=== PATIENT | female | born 1940 | race Caucasian/White ===

== ENCOUNTER → 2016-05-31 | Outpatient (CLI) | payer OTHER, MEDICARE ==
[~2016-05-31] MED LIST: FENO134C PO; FENO54TA PO; METO100T6 PO; METO50TA7 PO; MOEX15TA PO; PRAV40TA2 PO; PRAV80TA2 PO; TRM50T PO
--- NOTE | 2016-05-31 13:18 | Diagnostic Imaging Report ---
Bilateral screening mammogram. The current study was also evaluated with a Computer Aided Detection (CAD) system. INDICATION: Screening. No current complaints stated on the questionnaire. COMPARISON: 05/29/15. FINDINGS: The breasts are composed of scattered fibroglandular densities. There is stable tiny lymph node in the axillary tail of the left breast. Scattered benign-appearing calcifications are seen. Allowing for technique and positional differences, no suspicious change is seen. IMPRESSION: No significant change. ACR BI-RADS Category 2: Benign findings. Result letter will be mailed to the patient. Note: At least 10% of breast cancer is not imaged by mammography. Dictated by: Dictated on workstation # [id number]
== END ==
LOC: RAD 07:14
PROVIDERS: ATTEND Internal Medicine
DX: Z12.31 Encounter for screening mammogram for malignant neoplasm of breast (principal)
CPT/HCPCS: 77067

== ENCOUNTER → 2017-07-26 | Outpatient (CLI) | payer BC, MEDICARE ==
--- NOTE | 2017-07-26 13:35 | Diagnostic Imaging Report ---
INDICATION: Screening. TECHNIQUE: Screening digital mammography was performed bilaterally with a Computer Aided Detection (CAD) system. 3-D tomosynthesis was also performed and reviewed. COMPARISON: 05/31/2016 back through 04/05/2011. FINDINGS: There are scattered fibrotic densities bilaterally. There are a few unchanged nodular densities in the lateral aspect of the left breast. There are a few benign type calcifications. There is no new dominant mass, spiculated lesion, or suspicious calcification identified. IMPRESSION: Benign findings. ACR BI-RADS Category 2: Benign findings. Result letter will be mailed to the patient. Note: At least 10% of breast cancer is not imaged by mammography. Dictated by: Dictated on workstation # [id number]
== END ==
LOC: RAD 07:33
PROVIDERS: ATTEND Internal Medicine
DX: Z12.31 Encounter for screening mammogram for malignant neoplasm of breast (principal)
CPT/HCPCS: 77067

== ENCOUNTER → 2017-10-25 | Outpatient (CLI) | payer BC, MEDICARE | LOC: CARD 09:27 | PROVIDERS: ATTEND Internal Medicine | DX: R01.1 Cardiac murmur, unspecified (principal) | CPT/HCPCS: 93306 ==

== ENCOUNTER → 2018-08-15 | Outpatient (CLI) | payer BC, MEDICARE ==
--- NOTE | 2018-08-15 12:58 | Diagnostic Imaging Report ---
INDICATION: Routine screening. COMPARISON: 07/26/2017 and 05/31/2016. TECHNIQUE: 2D and 3D bilateral screening mammography was performed with CAD. FINDINGS: Scattered fibroglandular densities are identified bilaterally. Scattered benign-appearing calcifications are noted bilaterally. No dominant mass or malignant appearing microcalcifications are seen. The axillae are unremarkable. IMPRESSION: No mammographic features suspicious for malignancy are identified. ACR BI-RADS Category 2: Benign findings. Result letter will be mailed to the patient. Note: At least 10% of breast cancer is not imaged by mammography. Dictated by: Dictated on workstation # [id number]
== END ==
LOC: RAD 08:06
PROVIDERS: ATTEND Internal Medicine
DX: Z12.31 Encounter for screening mammogram for malignant neoplasm of breast (principal)
CPT/HCPCS: 77067

== ENCOUNTER 2019-02-14 21:53 | Emergency (ER) | payer BC, MEDICARE ==
[~2019-02-14] VITALS: Ht 167 cm; Wt 81.8 kg
[2019-02-14] MEDS ORDERED: NS IV 500 ML 500 ML IV ONE (22:13)
--- NOTE | 2019-02-14 22:22 | ED Neurological Problem ---
General Chief Complaint: Neurological Problems Stated Complaint: SYNCOPE Source: patient Exam Limitations: no limitations History of Present Illness Date Seen by Provider: Feb 14, 2019 Time Seen by Provider: 22:08 Initial Comments Here with report of near syncopal episode at home tonight. Patient actually was involved in the [place] [employer] [place] [place] and was standing on the [employer] sustaining for approximately an hour and 10 minutes. She apparently did okay with that but after getting home she became quite weak and nearly passed out. EMS was called and they brought her to the emergency department. Family reports that over the last 3 weeks that she's had some progressive and increasing memory problems and was not quite acting right. This was more noticeable today and worse tonight. She is a little better now. She did suffer a fall on January 13 and has followed with her doctor as well as Dr. Ronquillo evaluated shoulder and hip apparently on the right side. Is apparently is okay. She was instructed to get more exercise. 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 Patient states that she had to practices today prior to the concert and that was probably too much. Denies nausea or vomiting. Timing/Duration: episodic, waxing and waning, other (better now) Severity: moderate Associated Symptoms: confusion, fatigue; No nausea/vomiting, No slurred speech, No tingling in legs/feet; weakness Allergies and Home Medications Allergies Uncoded Allergies: ERTHROMYCIN (Allergy, Unknown, 05/08/12) Home Medications Cephalexin 500 Mg Tablet, 500 MG PO BID Prescribed by: JAMAL TEJADA on 02/14/19 4732 Fenofibrate 54 Mg Tablet, 54 MG PO HS, (Reported) Fenofibrate,Micronized 134 Mg Capsule, 134 MG PO DAILY, (Reported) Metoprolol Succinate 100 Mg Tab.er.24h, 50 MG PO DAILY, (Reported) Moexipril HCl 15 Mg Tablet, 15 MG PO DAILY, (Reported) Pravastatin Sodium 40 Mg Tablet, 40 MG PO DAILY, (Reported) Patient Home Medication List Home Medication List Reviewed: Yes Review of Systems Review of Systems Constitutional: see HPI; No chills, No fever Eyes: No Symptoms Reported Ears, Nose, Mouth, Throat: no symptoms reported Respiratory: no symptoms reported Cardiovascular: No chest pain; syncope (near syncope) Gastrointestinal: No abdominal pain, No nausea, No vomiting Genitourinary: no symptoms reported Musculoskeletal: No back pain; muscle weakness Skin: no symptoms reported Psychiatric/Neurological: See HPI All Other Systems Reviewed Negative Unless Noted: Yes Past Rnadfal-Ndudpn-Tiqfzk Hx Past Med/Social Hx: Reviewed Nursing Past Med/Soc Hx Patient Social History Alcohol Use: Denies Use Recreational Drug Use: No Smoking Status: Never a Smoker Recent Foreign Travel: No Contact w/Someone Who Travel: No Immunizations Up To Date Date of Pneumonia Vaccine: Mar 21, 2014 Seasonal Allergies Seasonal Allergies: Yes Past Medical History Surgeries: Yes (colonoscopy) Respiratory: Yes Pneumonia Cardiac: Yes High Cholesterol, Hypertension, Valvular Heart Disease Neurological: No Genitourinary: No Gastrointestinal: Yes (polyps) Musculoskeletal: Yes Arthritis, Fractures Family Medical History Reviewed Nursing Family Hx No Pertinent Family Hx Physical Exam Vital Signs Vital Signs - First Documented 02/14/19 21:55 Temp 36.6 Pulse 76 Resp 20 B/P (MAP) 147/63 (91) Pulse Ox 98 O2 Delivery Room Air Capillary Refill : Height, Weight, BMI Height: 5'6.00" Weight: 196lbs. 0.0oz. 88.046106xs; 31.6 BMI Method:Stated General Appearance: WD/WN, no apparent distress HEENT: PERRL/EOMI, pharynx normal Neck: full range of motion, supple Respiratory: lungs clear, normal breath sounds Cardiovascular: regular rate, rhythm, systolic murmur Gastrointestinal: non tender, soft Back: normal inspection, no CVA tenderness, no vertebral tenderness Extremities: non-tender, normal inspection Neurologic/Psychiatric: alert, oriented x 3 Crainal Nerves: normal hearing, normal speech, PERRL Coordination/Gait: normal finger to nose Motor/Sensory: no motor deficit, no sensory deficit, no pronator drift Skin: normal color, warm/dry Stroke NIH Stroke Scale Assessment Select: Initial Level of Consciousness: 0=Alert (0), Level of Consciousness- Questions: 0=Answers both month/age (0), LOC Commands: 0=Performs both tasks (0), Gaze: Normal (0), Visual [place]: 0=No visual loss (0), Facial Movement (Facial Paresis): 0=Normal symmetrical mnt (0), Motor Function-Arms Right: 0=No drift (0), Motor Function-Arms Left: 0=No drift (0), Motor Function-Legs Right: 0=No drift (0), Motor Function-Legs Left: 0=No drift (0), Limb Ataxia: 0=Absent (0), Sensory: 0=Normal:no loss (0), Best Language: 0=No aphasia (0), Dysarthria: 0=Normal (0), Extinction & Inattention: 0=No abnormality (0), Total: 0 IV - TPa Received IV - TPa Procedure Performed?: No Progress/Results/Core Measures Results/Orders Lab Results Laboratory Tests Test 02/14/19 22:37 02/14/19 22:38 02/14/19 22:48 Range/Units Glucometer 149 H 70-110 MG/DL White Blood Count 11.0 4.3-11.0 10^3/uL Red Blood Count 4.34 L 4.35-5.85 10^6/uL Hemoglobin 12.0 11.5-16.0 G/DL Hematocrit 36 35-52 % Mean Corpuscular Volume 84 80-99 FL Mean Corpuscular Hemoglobin 28 25-34 PG Mean Corpuscular Hemoglobin Concent 33 32-36 G/DL Red Cell Distribution Width 14.4 10.0-14.5 % Platelet Count 216 130-400 10^3/uL Mean Platelet Volume 10.2 7.4-10.4 FL Neutrophils (%) (Auto) 72 42-75 % Lymphocytes (%) (Auto) 19 12-44 % Monocytes (%) (Auto) 8 0-12 % Eosinophils (%) (Auto) 1 0-10 % Basophils (%) (Auto) 0 0-10 % Neutrophils # (Auto) 7.9 H 1.8-7.8 X 10^3 Lymphocytes # (Auto) 2.1 1.0-4.0 X 10^3 Monocytes # (Auto) 0.9 0.0-1.0 X 10^3 Eosinophils # (Auto) 0.1 0.0-0.3 10^3/uL Basophils # (Auto) 0.0 0.0-0.1 10^3/uL Prothrombin Time 13.6 12.2-14.7 SEC INR Comment 1.0 0.8-1.4 Activated Partial Thromboplast Time 25 24-35 SEC D-Dimer 0.91 H 0.00-0.49 UG/ML Sodium Level 145 135-145 MMOL/L Potassium Level 3.6 3.6-5.0 MMOL/L Chloride Level 110 H 98-107 MMOL/L Carbon Dioxide Level 20 L 21-32 MMOL/L Anion Gap 15 H 5-14 MMOL/L Blood Urea Nitrogen 23 H 7-18 MG/DL Creatinine 1.42 H 0.60-1.30 MG/DL Estimat Glomerular Filtration Rate 36 BUN/Creatinine Ratio 16 Glucose Level 155 H 70-105 MG/DL Calcium Level 9.9 8.5-10.1 MG/DL Corrected Calcium 10.1 8.5-10.1 MG/DL Total Bilirubin 1.0 0.1-1.0 MG/DL Aspartate Amino Transf (AST/SGOT) 14 5-34 U/L Alanine Aminotransferase (ALT/SGPT) 9 0-55 U/L Alkaline Phosphatase 49 40-136 U/L Troponin I < 0.028 <0.028 NG/ML Total Protein 6.3 L 6.4-8.2 GM/DL Albumin 3.8 3.2-4.5 GM/DL Urine Color YELLOW Urine Clarity CLEAR Urine pH 5 5-9 Urine Specific Avant 1.025 H 1.016-1.022 Urine Protein 3+ H NEGATIVE Urine Glucose (UA) NEGATIVE NEGATIVE Urine Ketones NEGATIVE NEGATIVE Urine Nitrite NEGATIVE NEGATIVE Urine Bilirubin NEGATIVE NEGATIVE Urine Urobilinogen NORMAL NORMAL MG/DL Urine Leukocyte Esterase 3+ H NEGATIVE Urine RBC (Auto) 5+ H NEGATIVE Urine RBC 10-25 H /HPF Urine WBC 10-25 H /HPF Urine Crystals PRESENT H /LPF Urine Uric Acid Crystals FEW H /LPF Urine Bacteria MODERATE H /HPF Urine Casts PRESENT /LPF Urine Hyaline Casts 2-5 H /LPF Urine Mucus NEGATIVE /LPF Urine Culture Indicated YES My Orders Orders - JAMAL TEJADA MD Cbc With Automated Diff (02/14/19 22:13) Protime With Inr (02/14/19 22:13) Partial Thromboplastin Time (02/14/19 22:13) Comprehensive Metabolic Panel (02/14/19 22:13) Fibrin Degradation Products (02/14/19 22:13) Troponin I (02/14/19 22:13) Ua Culture If Indicated (02/14/19 22:13) Chest 1 View, Ap/Pa Only (02/14/19 22:13) Ekg Tracing (02/14/19 22:13) Accucheck Stat ONCE (02/14/19 22:13) Ed Iv/Invasive Line Start (02/14/19 22:13) Vital Signs Stroke Patient Q15M (02/14/19 22:13) Ct Head Wo-R/O Stroke (02/14/19 22:13) O2 (02/14/19 22:13) Intake & Output 06,14,22 (02/14/19 22:13) Monitor-Rhythm Ecg Trace Only (02/14/19:13) Dysphagia Screening Tool (02/14/19 22:13) Ns Iv 500 Ml (Sodium Chloride 0.9%) (02/14/19 22:13) Straight Cath For Spec.-Adult (02/14/19:13) Ceftriaxone For Iv Use (Rocephin For I (02/14/19 23:34) Water (Sterile) For Injection (Sterile W (02/14/19 23:34) Urine Culture (02/14/19 22:48) Medications Given in ED Current Medications Medications Dose Ordered Sig/[place] Route Start Time Stop Time Status Last Admin Dose Admin Ceftriaxone Sodium 1,000 mg STK-MED ONCE .ROUTE 02/14/19 23:34 02/14/19 23:36 DC 02/14/19 23:37 1,000 MG Sodium Chloride 500 ml @ 0 mls/hr Q0M ONCE IV 02/14/19 22:13 02/14/19 22:17 DC 02/14/19 22:25 999 MLS/HR Sterile Water 10 ml @ ud STK-MED ONCE .ROUTE 02/14/19 23:34 02/14/19 23:36 DC 02/14/19 23:37 200 MLS/HR Vital Signs/I&O 02/14/19 02/15/19 21:55 00:02 Temp 36.6 36.1 Pulse 76 75 Resp 20 17 B/P (MAP) 147/63 (91) 134/73 Pulse Ox 98 96 O2 Delivery Room Air Room Air 02/15/19 00:00 Intake Total 500 ml Balance 500 ml Progress Progress Note : Progress Note Seen and evaluated on arrival by EMS. He, labs, EKG and chest x-ray, CT head and UA ordered. Stroke scale done by me and was 0. No indication for TPA as patient is 0 on stroke scale. Symptoms have been increasing over the last several weeks would also contraindicate TPA treatment. She did fall. 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 Record shows that she has aortic stenosis. We will give normal saline 500 mL bolus and await labs for further decision. Patient does not really want to stay but is willing to listen to information. Family is in agreement. Family is concerned regarding her increasing memory loss. We will rediscuss when labs and radiological evaluation complete. 2345:50) urinary tract infection with 3+ leukocytes and 1025 whites with moderate bacteria on straight catheter UA. We will go ahead and give Rocephin 1 g IV. She is feeling better and is able to relate events well. She will have family staying with her and has good family support. Patient wants to go home. Discharged home with return precautions. Patient and family verbalize understanding instructions and agreement with plan. I will send a copy of the chart to Dr. Johnson. Initial ECG Impression Date: Feb 14, 2019 Initial ECG Impression Time: 22:15 Initial ECG Rate: 76 Initial ECG Rhythm: Normal Sinus Comment Sinus rhythm with left anterior fascicular block. LVH noted. No evidence of ST elevation GA. No previous available for comparison area and left axis deviation. Interpreted by me. Diagnostic Imaging Diagonstic Imaging: Xray Plain Films/CT/US/NM/MRI: chest Comments no acute findings Diagonstic Imaging: CT Plain Films/CT/US/NM/MRI: head Comments No acute findings Departure Impression Primary Impression: Urinary tract infection Qualified Codes: N30.00 - Acute cystitis without hematuria Additional Impressions: Dehydration Near syncope Disposition: HOME, SELF-CARE Condition: Improved Departure-Patient Inst. Decision time for Depature: 23:45 Referrals: CECILIA JOHNSON MD (PCP/Family) Primary Care Physician Patient Instructions: Dehydration, Adult (DC), Syncope (Fainting) (DC), Urinary Tract Infection, Adult (DC) Add. Discharge Instructions: All discharge instructions reviewed with patient and/or family. Voiced understanding. Take medications as directed. Follow-up with your DrHo in a few days for recheck. Return for worse pain, fever, vomiting, weakness, breathing problems or other concerns as needed. Drink plenty of fluids and continue your normal diet and watch your sugars. Scripts Cephalexin (Cephalexin) 500 Mg Tablet 500 MG PO BID for 5 Days, #10 TAB 0 Refills Prov: JAMAL TEJADA MD 02/14/19 Copy Copies To 1: CECILIA JOHNSON MD, TIMOTHY D MD Feb 14, 2019 22:22
[2019-02-14] MEDS ORDERED: WATER (STERILE) FOR INJECTION 10 ML ONE (23:34)
[2019-02-14] MEDS ORDERED: cefTRIAXone 1,000 MG IV (ROCEPHIN) VIAL ONE (23:34)
[2019-02-14] MEDS ORDERED: CEPH500T PO (23:48)
[2019-02-14 23:51] LABS: BASOPHILS % (AUTO) 0 % (0-10); EOSINOPHILS # (AUTO) 0.1 10^3/uL (0.0-0.3); EOSINOPHILS % (AUTO) 1 % (0-10); HEMATOCRIT 36 % (35-52); LYMPHOCYTES # (AUTO) 2.1 X 10^3 (1.0-4.0); LYMPHOCYTES % (AUTO) 19 % (12-44); MEAN CORPUSCULAR HEMOGLOBIN 28 PG (25-34); MEAN CORPUSCULAR HGB CONC 33 G/DL (32-36); MEAN CORPUSCULAR VOLUME 84 FL (80-99); MEAN PLATELET VOLUME 10.2 FL (7.4-10.4); MONOCYTES # (AUTO) 0.9 X 10^3 (0.0-1.0); MONOCYTES % (AUTO) 8 % (0-12); NEUTROPHILS # (AUTO) 7.9 X 10^3 (1.8-7.8); NEUTROPHILS % (AUTO) 72 % (42-75); PLATELET COUNT 216 10^3/uL (130-400); RED CELL DISTRIBUTION WIDTH 14.4 % (10.0-14.5)
[2019-02-14 23:52] LABS: CARBON DIOXIDE 20 MMOL/L (21-32); CHLORIDE 110 MMOL/L (98-107); FIBRIN DEGRADATION PRODUCTS 0.91 UG/ML (0.00-0.49); POTASSIUM 3.6 MMOL/L (3.6-5.0); PROTHROMBIN TIME PATIENT 13.6 SEC (12.2-14.7); SODIUM 145 MMOL/L (135-145)
[2019-02-14 23:53] LABS: ALANINE AMINOTRANSFERASE 9 U/L (0-55); ALBUMIN 3.8 GM/DL (3.2-4.5); ALKALINE PHOSPHATASE 49 U/L (40-136); BUN/CREATININE RATIO 16; CALCIUM 9.9 MG/DL (8.5-10.1); CREATININE SERUM 1.42 MG/DL (0.60-1.30); GFR ESTIMATED 36; GLUCOSE 155 MG/DL (70-105); TOTAL PROTEIN 6.3 GM/DL (6.4-8.2)
[2019-02-14 23:54] LABS: BACTERIA,URINE MODERATE /HPF; BILIRUBIN,URINE NEGATIVE (NEGATIVE); CLARITY,URINE CLEAR; COLOR,URINE YELLOW; GLUCOSE, URINE (UA) NEGATIVE (NEGATIVE); KETONES,URINE NEGATIVE (NEGATIVE); LEUKOCYTE ESTERASE ,URINE 3+ (NEGATIVE); NITRITE,URINE NEGATIVE (NEGATIVE); PH,URINE 5 (5-9); PROTEIN,URINE 3+ (NEGATIVE)
[2019-02-15] LABS: URIC ACID CRYSTALS,URINE FEW /LPF
[2019-02-15 00:02] VITALS: BP 134/73
--- NOTE | 2019-02-15 05:22 | Diagnostic Imaging Report ---
PROCEDURE: CT head wo r/o stroke. TECHNIQUE: Multiple contiguous axial images were obtained through the brain without the use of intravenous contrast. Auto Exposure Controls were utilized during the CT exam to meet ALARA standards for radiation dose reduction. INDICATION: Syncope. COMPARISON: None. FINDINGS: No large acute territorial ischemia, mass, or hemorrhage. 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 Senescent mineralization is present in the bilateral basal ganglia. Chronic microvascular disease is seen in the periventricular and subcortical white matter. The ventricles and cortical sulci are prominent, consistent with generalized volume loss. The basilar cisterns are patent and unremarkable. The calvarium is intact. The visualized paranasal sinuses are clear. IMPRESSION: 1. No large acute territorial ischemia, mass, or hemorrhage. Agree with overnight report. 2. Chronic microvascular disease. 3. Generalized volume loss. Dictated by: Dictated on workstation # [id number]
--- NOTE | 2019-02-15 05:50 | Diagnostic Imaging Report ---
Patient History: Syncope.. Technique: Single frontal view of the chest Comparison: 06/26/2009 FINDINGS: The lung volumes are normal. No focal consolidation is seen. No large pleural effusion or pneumothorax is seen. The cardiomediastinal silhouette is normal in size and contour. No acute osseous abnormality is seen. IMPRESSION: 1. No acute pleuroparenchymal process. Dictated by: Dictated on workstation # [id number]
== END 2019-02-15 00:04 | disposition home or self-care (01) ==
LOC: EDUNIT# 21:53 → ER 21:53
DX: N39.0 Urinary tract infection, site not specified (principal); E86.0 Dehydration; R55 Syncope and collapse; I10 Essential (primary) hypertension; E78.00 Pure hypercholesterolemia, unspecified; Z88.1 Allergy status to other antibiotic agents
CPT/HCPCS: 36415; 51701; 70450; 71045; 80053; 81000; 82962; 84484; 85025; 85379; 85610; 85730; 87088; 93005; 93041; 96361; 96374

== ENCOUNTER → 2019-02-19 | Outpatient (CLI) | payer BC, MEDICARE ==
[~2019-02-19] MED LIST changes: +CEPH500T PO
--- NOTE | 2019-02-19 16:42 | Diagnostic Imaging Report ---
PROCEDURE: US carotid duplex, bilateral. TECHNIQUE: Multiple real-time grayscale images were obtained over the carotid arteries in various projections, bilaterally. Additional spectral analysis and color Doppler duplex images were also obtained. INDICATION: Stroke. FINDINGS: No comparison available. Parameters based on the consensus panel Burroughs-Scale and Doppler ultrasound criteria published February 2003, Radiology, Volume 229. DOPPLER (peak systolic velocity M/S Right Left CCA .80 1.08 ICA Proximal .57 .67 ICA Mid .67 .85 ICA Distal .55 .58 RATIO .8 .8 ECA 1.17 1.08 VERT .70 .73 Right carotid circulation: The right common carotid artery is normal in course and caliber. There is no significant plaque formation in the right carotid bifurcation. Based on grayscale images and flow velocity criteria, there are no hemodynamically significant stenoses. Left carotid circulation: The left common carotid artery is normal in course and caliber. There is no significant plaque formation in the left carotid bifurcation. Based on grayscale images and flow velocity criteria, there are no hemodynamically significant stenoses. Flow in the bilateral vertebral arteries is antegrade. IMPRESSION: 1. No stenosis of the right internal carotid artery. 2. No stenosis of the left internal carotid artery. Society of Radiologist in Ultrasound Consensus: Normal: ICA PSV is <125 cm/sec and no plaque or intimal thickening is visible sonographically ICA/CCA PSV ratio <2.0 ICA EDV <40 cm/sec Mild (<50% ICA stenosis): ICA PSV is <125 cm/sec and plaque or intimal thickening is visible sonographically ICA/CCA PSV ratio <2.0 ICA EDV <40 cm/sec Moderate (50-69% ICA stenosis) ICA PSV is 125-230 cm/sec and plaque is visible sonographically ICA/CCA PSV ratio of 2.0-4.0 ICA EDV of 40-100 cm/sec Severe (?70% ICA stenosis but less than near occlusion): ICA PSV is >230 cm/sec and visible plaque and luminal narrowing are seen at burroughs-scale and color Doppler ultrasound (the higher the Doppler parameters lie above the threshold of 230 cm/sec, the greater the likelihood of severe disease) ICA/CCA PSV ratio >4 ICA EDV >100 cm/sec Near occlusion of the ICA Velocity parameters may not apply, since velocities may be high, low, or undetectable Markedly narrowed lumen at color or power Doppler ultrasound Total occlusion of the ICA: No detectable patent lumen at burroughs-scale ultrasound and no flow with spectral, power, and color Doppler ultrasound May be compensatory increased velocity in the contralateral carotid Dictated by: Dictated on workstation # [id number]
== END ==
LOC: RAD 13:47
PROVIDERS: ATTEND Internal Medicine
DX: I63.9 Cerebral infarction, unspecified (principal)
CPT/HCPCS: 93880

== ENCOUNTER → 2019-02-23 | Outpatient (CLI) | payer MEDICARE, BC | LOC: CARD 09:53 | PROVIDERS: ATTEND Internal Medicine | DX: I35.0 Nonrheumatic aortic (valve) stenosis (principal); I07.1 Rheumatic tricuspid insufficiency; I63.9 Cerebral infarction, unspecified | CPT/HCPCS: 93306 ==

== ENCOUNTER 2019-04-26 09:55 | Emergency (ER) | payer BC, MEDICARE ==
[~2019-04-26] VITALS: Ht 167.4 cm; Wt 84.0 kg
--- NOTE | 2019-04-26 10:20 | ED Neurological Problem ---
General Chief Complaint: Neurological Problems Stated Complaint: CONFUSION Source: patient, family Exam Limitations: no limitations History of Present Illness Date Seen by Provider: Apr 26, 2019 Time Seen by Provider: 10:18 Initial Comments This 78-year-old white female presents with a history of confusion which was noted this morning. It would appear the patient awoke in the normal state and became confused while speaking on the phone later in the morning. Patient denies the confusion. The patient also denies associated fever, chills, photophobia or stiff neck, chest pain or shortness of breath, associated nausea or vomiting, or lateralizing or localizing neurologic complaints. Patient had a similar episode of confusion in January. These symptoms spontaneously resolved. The patient is under the care of Dr. Cecilia Garcia. The patient suffers from hypertension and type II diabetes. She is not on any anticoagulants. Allergies and Home Medications Allergies Uncoded Allergies: ERTHROMYCIN (Allergy, Unknown, 05/08/12) Home Medications Fenofibrate 54 Mg Tablet, 54 MG PO HS, (Reported) Fenofibrate,Micronized 134 Mg Capsule, 134 MG PO DAILY, (Reported) Metoprolol Succinate 100 Mg Tab.er.24h, 50 MG PO DAILY, (Reported) Moexipril HCl 15 Mg Tablet, 15 MG PO DAILY, (Reported) Pravastatin Sodium 40 Mg Tablet, 40 MG PO DAILY, (Reported) Patient Home Medication List Home Medication List Reviewed: Yes Review of Systems Review of Systems Constitutional: No chills, No fever Eyes: No Symptoms Reported Ears, Nose, Mouth, Throat: no symptoms reported Respiratory: no symptoms reported Cardiovascular: No chest pain, No palpitations Gastrointestinal: no symptoms reported Genitourinary: no symptoms reported Musculoskeletal: no symptoms reported Skin: no symptoms reported Psychiatric/Neurological: See HPI, Cognitive Dysfunction Endocrine: No Symptoms Reported Hematologic/Lymphatic: No Symptoms Reported Past Evtxzft-Vxjbgb-Ghpfwg Hx Past Med/Social Hx: Reviewed Nursing Past Med/Soc Hx Patient Social History 2nd Hand Smoke Exposure: No Recent Foreign Travel: No Contact w/Someone Who Travel: No Recent Hopitalizations: No Immunizations Up To Date PED Vaccines UTD: Yes Date of Pneumonia Vaccine: Mar 21, 2014 Seasonal Allergies Seasonal Allergies: Yes Past Medical History Surgeries: Yes (colonoscopy) Appendectomy, Gallbladder, Hysterectomy Respiratory: Yes Pneumonia Cardiac: Yes High Cholesterol, Hypertension, Valvular Heart Disease Neurological: No Female Reproductive Disorders: Denies Genitourinary: No Gastrointestinal: Yes (polyps) Musculoskeletal: Yes Arthritis, Fractures Endocrine: Yes Diabetes, Non-Insulin dep HEENT: No Cancer: No Psychosocial: No Integumentary: No Blood Disorders: No Family Medical History No Pertinent Family Hx Physical Exam Vital Signs Vital Signs - First Documented 04/26/19 10:17 Temp 36.1 Pulse 69 Resp 18 B/P (MAP) 200/99 (132) Pulse Ox 98 O2 Delivery Room Air Capillary Refill : Height, Weight, BMI Height: 5'6.00" Weight: 196lbs. 0.0oz. [id number]; 29.00 BMI Method:Stated General Appearance: WD/WN, no apparent distress HEENT: normal ENT inspection Neck: non-tender, full range of motion, supple Respiratory: chest non-tender, lungs clear Cardiovascular: regular rate, rhythm Gastrointestinal: normal bowel sounds, non tender Back: normal inspection Extremities: normal range of motion, non-tender Neurologic/Psychiatric: no motor/sensory deficits, other (the nurses NIHSS score is 1 the patient's defect was significant. She was unable to recognize distant relatives. She was unable to recall the code for her daughter. When she spoke on the telephone and in the emergency department the patient was unable to offer a clear conversation R history.) Crainal Nerves: normal hearing, normal speech Skin: normal color, warm/dry Stroke NIH Stroke Scale Assessment Gaze: Normal (0), Total: Progress/Results/Core Measures Results/Orders Lab Results Laboratory Tests Test 04/26/19 10:40 Range/Units White Blood Count 7.9 4.3-11.0 10^3/uL Red Blood Count 4.48 4.35-5.85 10^6/uL Hemoglobin 12.1 11.5-16.0 G/DL Hematocrit 37 35-52 % Mean Corpuscular Volume 83 80-99 FL Mean Corpuscular Hemoglobin 27 25-34 PG Mean Corpuscular Hemoglobin Concent 33 32-36 G/DL Red Cell Distribution Width 14.1 10.0-14.5 % Platelet Count 217 130-400 10^3/uL Mean Platelet Volume 10.3 7.4-10.4 FL Neutrophils (%) (Auto) 69 42-75 % Lymphocytes (%) (Auto) 22 12-44 % Monocytes (%) (Auto) 6 0-12 % Eosinophils (%) (Auto) 2 0-10 % Basophils (%) (Auto) 0 0-10 % Neutrophils # (Auto) 5.4 1.8-7.8 X 10^3 Lymphocytes # (Auto) 1.7 1.0-4.0 X 10^3 Monocytes # (Auto) 0.5 0.0-1.0 X 10^3 Eosinophils # (Auto) 0.2 0.0-0.3 10^3/uL Basophils # (Auto) 0.0 0.0-0.1 10^3/uL Prothrombin Time 12.7 12.2-14.7 SEC INR Comment 0.9 0.8-1.4 Activated Partial Thromboplast Time 26 24-35 SEC D-Dimer 0.83 H 0.00-0.49 UG/ML Sodium Level 142 135-145 MMOL/L Potassium Level 4.1 3.6-5.0 MMOL/L Chloride Level 108 H 98-107 MMOL/L Carbon Dioxide Level 23 21-32 MMOL/L Anion Gap 11 5-14 MMOL/L Blood Urea Nitrogen 24 H 7-18 MG/DL Creatinine 0.91 0.60-1.30 MG/DL Estimat Glomerular Filtration Rate 59 BUN/Creatinine Ratio 26 Glucose Level 147 H 70-105 MG/DL Calcium Level 9.3 8.5-10.1 MG/DL Corrected Calcium 9.5 8.5-10.1 MG/DL Total Bilirubin 0.7 0.1-1.0 MG/DL Aspartate Amino Transf (AST/SGOT) 13 5-34 U/L Alanine Aminotransferase (ALT/SGPT) 11 0-55 U/L Alkaline Phosphatase 47 40-136 U/L Troponin I < 0.028 <0.028 NG/ML Total Protein 6.3 L 6.4-8.2 GM/DL Albumin 3.8 3.2-4.5 GM/DL My Orders Orders - CECILIA RILEY MD Cbc With Automated Diff (04/26/19 10:16) Protime With Inr (04/26/19 10:16) Partial Thromboplastin Time (04/26/19 10:16) Comprehensive Metabolic Panel (04/26/19 10:16) Fibrin Degradation Products (04/26/19 10:16) Troponin I (04/26/19 10:16) Ua Culture If Indicated (04/26/19 10:16) Chest 1 View, Ap/Pa Only (04/26/19 10:16) Ekg Tracing (04/26/19 10:16) Nothing By Mouth (04/26/19 Dinner) Accucheck Stat ONCE (04/26/19 10:16) Ed Iv/Invasive Line Start (04/26/19 10:16) Ed Iv/Invasive Line Start (04/26/19 10:16) Vital Signs Stroke Patient Q15M (04/26/19 10:16) Ct Head Wo-R/O Stroke (04/26/19 10:16) O2 (04/26/19 10:16) Intake & Output 06,14,22 (04/26/19 10:16) Monitor-Rhythm Ecg Trace Only (04/26/19 10:16) Dysphagia Screening Tool (04/26/19 10:16) Post Thrombolytic Adminstratio (04/26/19 10:16) Lipid Panel (04/27/19 06:00) Ns (Ivpb) (Sodium C... W/Nicardipine Iv (04/26/19 12:00) Hydralazine Injection (Apresoline Inject (04/26/19 12:00) Vital Signs/I&O 04/26/19 04/26/19 04/26/19 10:17 11:31 11:44 Temp 36.1 Pulse 69 58 Resp 18 18 B/P (MAP) 200/99 (132) 201/85 (123) 189/78 (115) Pulse Ox 98 97 O2 Delivery Room Air Room Air Progress Progress Note : Time: 11:36 Progress Note The patient's CT of the head demonstrated a 2 cm in diameter left parietal temporal hemorrhage. I discussed findings with the patient and her son. It was agreed that we would transfer the patient to neurosurgery. I placed a call to and I am awaiting the neurosurgeon's call back. [address] Landin recommended that the blood pressure be lowered to 160 systolic. A hydralizine injection of 10 mg and a gtt of Nicardapine has been ordered. The patient will be transferred by helicopter to . Departure Impression Primary Impression: Intracranial hemorrhage Disposition: XFER SHT-TRM HOSP Condition: Improved Transfer Transfer Reason: Exceeds level of care Time Spoke to Accepting Phy: 12:04 Transfer Progress Notes accepted the patient in transfer to Transfer Time: 12:05 Transfer Facility: neurosurgery Method of Transfer: Air Departure-Patient Inst. Referrals: CECILIA GARCIA MD (PCP/Family) Primary Care Physician CECILIA RILEY MD Apr 26, 2019 10:20
[2019-04-26 10:56] LABS: BASOPHILS % (AUTO) 0 % (0-10); EOSINOPHILS # (AUTO) 0.2 10^3/uL (0.0-0.3); EOSINOPHILS % (AUTO) 2 % (0-10); HEMATOCRIT 37 % (35-52); HEMOGLOBIN 12.1 G/DL (11.5-16.0); LYMPHOCYTES # (AUTO) 1.7 X 10^3 (1.0-4.0); LYMPHOCYTES % (AUTO) 22 % (12-44); MEAN CORPUSCULAR HEMOGLOBIN 27 PG (25-34); MEAN CORPUSCULAR HGB CONC 33 G/DL (32-36); MEAN CORPUSCULAR VOLUME 83 FL (80-99); MEAN PLATELET VOLUME 10.3 FL (7.4-10.4); MONOCYTES # (AUTO) 0.5 X 10^3 (0.0-1.0); MONOCYTES % (AUTO) 6 % (0-12); NEUTROPHILS # (AUTO) 5.4 X 10^3 (1.8-7.8); NEUTROPHILS % (AUTO) 69 % (42-75); PLATELET COUNT 217 10^3/uL (130-400); RED CELL DISTRIBUTION WIDTH 14.1 % (10.0-14.5); WHITE BLOOD COUNT 7.9 10^3/uL (4.3-11.0)
--- NOTE | 2019-04-26 11:06 | NUR ---
DYSPHASIA FAILED DUE TO PATIENT NPO DUE TO CT REPORT.
--- NOTE | 2019-04-26 11:10 | Diagnostic Imaging Report ---
PROCEDURE: CT head wo r/o stroke. TECHNIQUE: Multiple contiguous axial images were obtained through the brain without the use of intravenous contrast. Auto Exposure Controls were utilized during the CT exam to meet ALARA standards for radiation dose reduction. INDICATION: Confusion. COMPARISON: Correlation is made with prior head CT from 02/14/2019. FINDINGS: There is an acute intraparenchymal hematoma in the left temporal lobe measuring 2.1 cm AP x 2.9 cm transverse. There is some mild surrounding low density, consistent with edema. No significant mass effect or midline shift is seen. No extra-axial hemorrhage is detected. There is an area of encephalomalacia in the left frontal lobe, similar to prior head CT consistent with prior infarct. Cisterns are patent. Visualized paranasal sinuses are clear. IMPRESSION: 1. Acute intraparenchymal hematoma in the left temporoparietal lobe with some mild surrounding edema. No mass effect or midline shift is detected. 2. Left frontal lobe encephalomalacia. Results were discussed with Dr. Nolen of the emergency department prior to this dictation. Dictated by: Dictated on workstation # [id number]
[2019-04-26 11:14] LABS: ALANINE AMINOTRANSFERASE 11 U/L (0-55); ALBUMIN 3.8 GM/DL (3.2-4.5); ALKALINE PHOSPHATASE 47 U/L (40-136); BILIRUBIN,TOTAL 0.7 MG/DL (0.1-1.0); BUN/CREATININE RATIO 26; CALCIUM 9.3 MG/DL (8.5-10.1); CARBON DIOXIDE 23 MMOL/L (21-32); CHLORIDE 108 MMOL/L (98-107); CREATININE SERUM 0.91 MG/DL (0.60-1.30); GFR ESTIMATED 59; GLUCOSE 147 MG/DL (70-105); POTASSIUM 4.1 MMOL/L (3.6-5.0); SODIUM 142 MMOL/L (135-145); TOTAL PROTEIN 6.3 GM/DL (6.4-8.2)
[2019-04-26 11:18] LABS: FIBRIN DEGRADATION PRODUCTS 0.83 UG/ML (0.00-0.49); INR 0.9 (0.8-1.4); PROTHROMBIN TIME PATIENT 12.7 SEC (12.2-14.7)
--- NOTE | 2019-04-26 11:20 | Diagnostic Imaging Report ---
INDICATION: Confusion. TIME OF EXAM: 11 00 a.m. Correlation is made with prior chest 02/14/2019. The heart is mildly enlarged. There is some minimal density in the right base which may represent some minimal infiltrate. Otherwise the lungs are clear. The pulmonary vascularity is normal. No effusion or pneumothorax. IMPRESSION: Questionable minimal infiltrate right base. The study is otherwise unremarkable. Dictated by: Dictated on workstation # [id number]
--- NOTE | 2019-04-26 11:25 | NUR ---
DR RILEY IN CONTACT WITH [facility] AT . CT CLOUDED TO [facility] AND WILL FAX REPORT
--- NOTE | 2019-04-26 11:29 | NUR ---
DISCUSS B/P WITH DR RILEY DECLINE TO [place] AT THIS TIME.
[2019-04-26 11:31] VITALS: BP 201/85
[2019-04-26 11:44] VITALS: BP 189/78
[2019-04-26] MEDS ORDERED: niCARdipine IV 50 MG in NS (IVPB) 230 ML IV SCH (12:00)
[2019-04-26] MEDS ORDERED: hydrALAZINE (APESOLINE) 20 MG/ML VIAL IV ONE (12:00)
--- NOTE | 2019-04-26 12:00 | NUR ---
[facility] CALLED BACK OK TO [facility]
--- NOTE | 2019-04-26 12:18 | NUR ---
[facility] HERE FOR TRANSFER
[2019-04-26 12:41] VITALS: BP 182/84
--- NOTE | 2019-04-26 12:54 | NUR ---
CON'T TO WAIT FOR CALL BACK REPORT FROM [facility].
--- NOTE | 2019-04-26 13:59 | NUR ---
[facility] called back for report.
== END 2019-04-26 12:50 | disposition short-term general hospital (02) ==
LOC: EDUNIT# 09:55 → ER 09:56
DX: I62.9 Nontraumatic intracranial hemorrhage, unspecified (principal); I10 Essential (primary) hypertension; E11.9 Type 2 diabetes mellitus without complications; E78.00 Pure hypercholesterolemia, unspecified; Z88.1 Allergy status to other antibiotic agents; Z90.49 Acquired absence of other specified parts of digestive tract; Z90.710 Acquired absence of both cervix and uterus
CPT/HCPCS: 36415; 70450; 71045; 80053; 84484; 85025; 85379; 85610; 85730; 93005; 93041; 96374; 96375

== ENCOUNTER 2019-04-30 11:14 | Inpatient (IN) | payer MEDICARE, BC ==
[~2019-04-30] VITALS: Ht 167.7 cm; Wt 96.3 kg
[2019-04-30] MEDS ORDERED: FLEET ENEMA ADULT 1 EA BTL PR PRN (13:15)
[2019-04-30] MEDS ORDERED: LACTULOSE SYRUP 10GM/15ML (ENULOSE) 30ML UDC PO PRN (13:15)
[2019-04-30] MEDS ORDERED: guaiFENesin/CODEINE (ROBITUSSIN AC) 10ML UDC PO PRN (13:15)
[2019-04-30] MEDS ORDERED: BISACODYL 10 MG SUPP (DULCOLAX) PR PRN (13:15)
[2019-04-30] MEDS ORDERED: DOCUSATE SODIUM 100 MG (COLACE) CAP PO PRN (13:15)
[2019-04-30] MEDS ORDERED: ALPRAZolam 0.25 MG (XANAX) TAB PO PRN (13:15)
[2019-04-30] MEDS ORDERED: LOPERAMIDE 2 MG (IMODIUM) TABLET PO PRN (13:15)
[2019-04-30] MEDS ORDERED: ONDANSETRON 4 MG (ZOFRAN) ORAL DISSOLVE TAB PO PRN (13:15)
[2019-04-30] MEDS ORDERED: CALCIUM CARBONATE 500 MG (TUMS) TAB.CHEW PO PRN (13:15)
[2019-04-30] MEDS ORDERED: diphenhydrAMINE 25 MG TAB (BENADRYL) PO PRN (13:15)
[2019-04-30] MEDS ORDERED: HYDROcodone/APAP 5 MG/325 MG (LORTAB) TAB PO PRN (13:15)
[2019-04-30 14:40] VITALS: BP 139/73
--- NOTE | 2019-04-30 14:40 | NUR ---
Admitted to room 225, with an admitting diagnosis of intercranial hemorrage, on 04-30-2019 from [facility] , accompanied by .KAYLEN PAINTING introduced to surroundings, call light, bed controls, phone, TV, temperature control, lights, meal times, smoking policy, visitor policy, side rail policy, bathrooms and showers. Patient Rights given to patient in the handbook.KAYLEN PAINTING verbalizes understanding that [facility] is not responsible for the loss or damage to any personal effects or valuables that are kept in the patients posession during their hospitalization. The following Patient Care Plans were discussed with the : Discharge Planning, ,, and . KAYLEN PAINTING verbalizes understanding of Interdisciplinary Patient Education. Patient and/or family were informed about the Rapid Response Team and its purpose. Patient received Patient Rights Booklet, which includes Privacy Act Statement and Data Collection Information Summary.
[2019-04-30] MEDS ORDERED: ESCI20TA PO (14:56)
[2019-04-30] MEDS ORDERED: AMLO10TA7 PO (14:56)
[2019-04-30] MEDS ORDERED: FENO145T2 PO (14:56)
--- NOTE | 2019-04-30 14:57 | NUR ---
UPDATED MED REC WITH DISCHARGE PAPERWORK. THE FOLLOWING CHANGE WAS MADE AT THAT DISCHARGE. START TAKING: AMLODIPINE 10MG DAILY CONTINUE: LEXAPRO 20MG HS FENOFIBRATE 145MG DAILY MOEXIPRIL 15MG DAILY PRAVASTATIN 40MG HS I WILL CHECK THIS WITH THE EXT MED HX WHEN THE ACCOUNT IS UPDATED TO ACTIVE AND NOT PREN IN AND REVERT THE MED REC BACK TO THE LIST THE PATIENT WAS TAKING PRIOR TO THE CHANGES MADE AT DISCHARGE AT A LATER DATE FOR PROPER DISCHARGE TO HOME ORDERS. Addendum: 04/30/19 at 1634 by FERCHO PALACIOS CPhT REVIEWED THE EXT MED HX AT THIS TIME, IT IS SHOWING THE PATIENT FILLED #900 FOR 90 DAY SUPPLIES ON SEVERAL MEDICATIONS. I CALLED [facility] AND THEY STATE THE PATIENT RECEIVED #90 TABS FOR 90 DAYS ON THE DATES LISTED. I CHANGED TO FENOFIBRATE TO 134MG SINCE THAT IS WHAT HAS BEEN FILLED MOST RECENTLY, THE DISCHARGE PAPERWORK SAID TO CONTINUE 145MG. THE PRAVASTATIN IS PAST DUE FOR REFILL, IT WAS LAST FILLED #90 06-28-18 - I NOTED THE PAST DUE FILL DATE ON THE MED REC. Addendum: 05/01/19 at 0813 by FERCHO PALACIOS CPhT REMOVED THE AMLODIPINE THAT WAS STARTED AT DISCHARGE FROM THE [facility] REC AT THIS TIME FOR PROPER DISCHARGE TO HOME ORDERS.
--- NOTE | 2019-04-30 15:26 | Physical Therapy Evaluation ---
PT Evaluation-General Medical Diagnosis Admission Date 04/30/2019 Medical Diagnosis: left temporal/parietal hemorrhage Onset Date: Apr 30, 2019 Therapy Diagnosis Therapy Diagnosis: abnormal gait Height/Weight Height (Feet): 5 Height (Inches): 6.00 Weight (Pounds): 196 Weight (Ounces): 0.0 Precautions Precautions/Isolations: Standard Precautions Referral Physician: Reinier Reason for Referral: Evaluation/Treatment Medical History Pertinent Medical History: HTN Additional Medical History TIA, falls Current History Pt presented to this hospital on 04/27/2019 with son reporting decreased word finding and confusion. Pt transferred to [facility] with above noted diagnosis. Pt has returned to this facility for continued skilled therapy services and medical management. Reviewed History: Yes Social History Home: Single Level Current Living Status: Alone (supportive family that checks on her frequently) Entry Into Home: Stairs With Railing PT Steps Into Home: 2 Prior Prior Level of Function SCALE: Activities may be completed with or without assistive devices. 6-Wzixvgcwdq-srdgzgi completes the activity by him/herself with no assistance from a helper. 5-Set-up or Clean-up Assistance-helper sets up or cleans up; patient completes activity. [place] assists only prior to or following the activity. 4-Supervision or Touching Assistance-helper provides verbal cues and/or touching/steadying and/or contact guard assistance as patient completes activity. Assistance may be provided throughout the activity or intermittently. 3-Partial/Moderate Assistance-helper does LESS THAN HALF the effort. [place] lifts, holds or supports trunk or limbs, but provides less than half the effort. 2-Substantial/Maximal Assistance-helper does MORE THAN HALF the effort. [place] lifts or holds trunk or limbs and provides more than half the effort. 2-Tgrgxpcym-mqcdtt does ALL the effort. Patient does none of the effort to complete the activity. Or, the assistance of 2 or more helpers is required for the patient to complete the activity. If activity was not attempted, code reason: 7-Patient Refused. 9-Not Applicable-not attempted and the patient did not perform the activity before the current illness, exacerbation or injury. 10-Not Attempted due to Environmental Limitations-(lack of equipment, weather restraints, etc.). 88-Not Attempted due to Medical Conditions or Safety Concerns. Bed Mobility: 6 Transfers (B,C,W/C): 6 Gait: 6 Stairs: 6 Indoor Mobility (Ambulation): Independent Stairs: Independent Pt was indep at [facility]; indep with community mobility; still drives. PT Evaluation-Current Subjective Pt agreeable to PT. Reports she is ready to work. Reports her goal is to return home as she was before. Pain Numeric Pain Scale: 0-No Pain Location: No Pain Reported Pt/Family Goals Return home as before. Objective Patient Orientation: Person, Place, Time, Situation Sensory Vision: Functional Hearing: Functional Hand Dominance: Right Sensation Right Lower Extremit: Intact Sensation Left Lower Extremity: Intact Transfers Roll Left to Right (QC): 4 Sit to Lying (QC): 4 Lying to Sitting/Side of Bed(Q: 4 Sit to Stand (QC): 4 Chair/Vrg-gf-Pjxab Xfer(QC): 4 Toilet Transfer: 4 Car Transfer (QC): 4 CGA with all functional transfers for safety with heavy cues for sequencing and safety awareness. Gait Does the Patient Walk?: Yes Mode of Locomotion: Walk Anticipated Mode of Locomotion: Walk Walk 10 feet (QC): 4 Walk 50 ft with 2 Turns(QC): 4 Walk 150 ft (QC): 4 Walking 10ft/uneven surface-QC: 4 Gait Assistive Device: None Comments/Gait Description CGA with all gait for safety and tactile cues to guide. Pt slightly impulsive and needs heavy cuing to follow tasks and stay on task. Stairs 1 Step (curb) (QC): 4 4 Steps (QC): 4 12 Steps (QC): 88 CGA on stairs with skilled cues for safety. Balance Sitting Static: Good Sitting Dynamic: Fair Standing Static: Fair Standing Dynamic: Fair Picking up an Object (QC): 4 Treatment Co treat with OT as need for 2 skilled clinicians indicated due to need for heavy tactile and verbal cuing to stay on task, complete task and complete safely. Worked on seated and standing dynamic balance activities to include bending, reaching, twisting--all to highly challenge balance. OT addressed UE use and placement as PT addressed gross balance and positioning. Also worked on safety awareness with visual scanning with weaving in/out of cones, obstacles, stepping over to enhance safety awareness of the environment. Gait training also co treat with OT, PT focused on safe gait as OT addressed use of signage and problem solving to find certain rooms and areas to coordinate mobility with cognitive activities. Pt walked greater than 500 ft without CGA only and no AD. Educated pt and family on ARU expectations and what to expect. They verbalized understanding. Assessment/Needs Pt presents post CVA with noted decreased safety awareness and functional mobility limits associated with decreased safety and impulsive behavior. She ambulates and transfers with CGA due to safety concerns and requires heavy verb al and tactile cues to complete tasks effectively and safely. She will benefit from skilled PT intervention to address her safety, mobility and awareness to allow her to discharge at a safe level to care for herself. Rehab Potential: Good PT Short Term Goals Short Term Goals Time Frame: May 07, 2019 Sit to lyin Lying to sitting on side of be: 5 Sit to stand: 5 Walk 150 feet: 5 PT Woolen Tester Goals Woolen Tester Goals PT Woolen Tester Goals Time Frame: May 15, 2019 Roll Left & Right (QC): 6 Sit to Lying (QC): 6 Lying-Sitting on Side/Bed(QC): 6 Sit to Stand (QC): 6 Chair/Ndu-lg-Jscib Xfer(QC): 6 Toilet Transfer (QC): 6 Car Transfer (QC): 6 Walk 10 feet (QC): 6 Walk 50ft with 2 Turns (QC): 6 Walk 150 ft (QC): 6 Walking 10ft on Uneven Surface: 6 1 Step (curb) (QC): 6 4 Steps (QC): 6 12 Steps (QC): 6 Picking up an Object (QC): 6 PT Plan Problem List Problem List: Activity Tolerance, Functional Strength, Safety, Balance, Gait, Transfer, Bed Mobility Treatment/Plan Treatment Plan: Continue Plan of Care Treatment Plan: Bed Mobility, Education, Functional Activity Kapil, Functional Strength, Group Therapy, Gait, Safety, Therapeutic Exercise, Transfers Treatment Duration: May 15, 2019 Frequency: At least 5 of 7 days/Wk (IRF) Estimated Hrs Per Day: 1.5 hours per day Patient and/or Family Agrees t: Yes Safety Risks/Education Patient Education: Transfer Techniques, Safety Issues Teaching Recipient: Patient Teaching Methods: Demonstration, Discussion Response to Teaching: Reinforcement Needed Discharge Recommendations Therapy Discharge Recommendati: Post Acute PT Time/GCodes Time In: 1440 Time Out: 1450 ([id number]) Total Billed Treatment Time: 90 Total Billed Treatment visit EVM 10 NM 50 GT 30 JANET OAKLEY PT Apr 30, 2019 15:26
[2019-04-30] MEDS ORDERED: ESCI20TA45 PO (16:29)
[2019-04-30 16:30] VITALS: BP 118/68
[2019-04-30] MEDS ORDERED: FENO134C PO (16:31)
--- NOTE | 2019-04-30 16:32 | Occupational Therapy Eval ---
OT Evaluation-General/PLF Medical Diagnosis Admission Date Apr 30, 2019 at 14:40 Medical Diagnosis: left temporal/parietal hemorrhage Onset Date: Apr 30, 2019 Therapy Diagnosis Therapy Diagnosis: Decreased ADL/ functional mobilty Height/Weight Height (Feet): 5 Height (Inches): 6.00 Weight (Pounds): 196 Weight (Ounces): 0.0 Precautions Precautions/Isolations: Standard Precautions Weight Bear Status Weight Bearing Restriction: Weight Bearing/Tolerated Referral Physician: Reinier Referral Reason: Activity Tolerance, Self Care, Evaluation/Treatment, S trengthening/ROM Medical History Pertinent Medical History: HTN Current History TIA Apr 26 (R side affected), flighted to [facility]; ARU on 04/30 Reviewed History: Yes Social History Home: Single Level Current Living Status: Alone (supportive family that checks on her frequently) Entry Into Home: Stairs With Railing Steps Into Home: 2 ADL-Prior Level of Function SCALE: Activities may be completed with or without assistive devices. 7-Slwhsyzdzg-mflfxdr completes the activity by him/herself with no assistance from a helper. 5-Set-up or Clean-up Assistance-helper sets up or cleans up; patient completes activity. [place] assists only prior to or following the activity. 4-Supervision or Touching Assistance-helper provides verbal cues and/or touching/steadying and/or contact guard assistance as patient completes activity. Assistance may be provided throughout the activity or intermittently. 3-Partial/Moderate Assistance-helper does LESS THAN HALF the effort. [place] lifts, holds or supports trunk or limbs, but provides less than half the effort. 2-Substantial/Maximal Assistance-helper does MORE THAN HALF the effort. [place] lifts or holds trunk or limbs and provides more than half the effort. 4-Pdpyprffd-dtdgvg does ALL the effort. Patient does none of the effort to complete the activity. Or, the assistance of 2 or more helpers is required for the patient to complete the activity. If activity was not attempted, code reason: 7-Patient Refused. 9-Not Applicable-not attempted and the patient did not perform the activity before the current illness, exacerbation or injury. 10-Not Attempted due to Environmental Limitations-(lack of equipment, weather restraints, etc.). 88-Not Attempted due to Medical Conditions or Safety Concerns. ADL PLOF Comments Pt was IND without use of AE. 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 Drive Self: Yes OT Current Status Subjective Pt transported from to [facility] by private vehicle. OT/ PT met pt and family outside, car transfer to w/c with CGA. Pt agreeable to OT/ PT services, states no pain upon arrival and intermediate through session. Mental Status/Objective Patient Orientation: Person, Place, Situation, Normal For Age Current Hand Dominance: Right Upper Extremity ROM WFL BUE Upper Extremity Coordination WFL BUE Upper Extremity Sensation WFL, no c/o paresthesias Upper Extremity Strength WFL 4+/5 bilaterally Edema: none noted. ADL-Treatment Eating (QC): 6 Oral Hygiene (QC): 7 Shower/Bathe Self (QC): 7 Upper Body Dressing (QC): 7 Lower Body Dressing (QC): 7 On/Off Footwear (QC): 6 Toileting Hygiene (QC): 4 (SUP) Other Treatments [id number]: OT evaluation individual. OT role explained; ARU expectations explained. [id number]: OT/ PT co-treat. Co-treat rendered due to pt's dx, safety, and higher level tasks which require the focus and attn of 2 skilled therapists that of which an aide could not provide. Pt completes bed mob with SUP, sit to stand with SBA and ambulates to car with SBA (no AE utilized). Pt completes car transfer with SBA and cues for safety. Pt completes ambulation to therapy gym, completes high level standing/ sitting balance tasks with fair+ balance. Pt completes hand and UE exercises with weighted clothes pins and 5# weighted bar on wiggle cushion. R biztalk developer strength: 43 lb avg, L biztalk developer strength: 37 lb avg. R pinch 15lb; L pinch 14 lb.Pt demonstrates fair safety awareness, expressive aphasia increases with fatigue and environmental stimuli. Pt navigates to room with min cues to utilize environmental signs, utilizes bathroom with SBA and returns to recliner chair. family present in/out through session. Pt motivated to return home, states goals for therapy are to keep increasing strength/ ambulation. Pt left in room with family, call light in reach, all needs met. Education OT Patient Education: Correct positioning, Exercise program, Home exercise program, Instructions to caregiver, Modified ADL techniques, Purpose of tx/functional activities, Safety issues, Transfer techniques Teaching Recipient: Patient Teaching Methods: Demonstration, Discussion Response to Teaching: Verbalize Understanding, Return Demonstration OT Short Term Goals Short Term Goals Time Frame: Apr 30, 2019 Shower/bathe self: 4 Upper body dressin Lower body dressin OT Manager Agricultural Goals Chcf Goals Time Frame: May 14, 2019 Eating (QC): 6 Oral Hygiene (QC): 6 Toileting Hygiene (QC): 6 Shower/Bathe Self (QC): 6 Upper Body Dressing (QC): 6 Lower Body Dressing (QC): 6 On/Off Footwear (QC): 6 Additional Goals: 1-Demonstrate ADL Tasks, 2-Verbalize Understanding, 3- ImproveStrength/[place] 1=Demonstrate adherence to instructed precautions during ADL tasks. 2=Patient will verbalize/demonstrate understanding of assistive devices/modifications for ADL. 3=Patient will improve strength/tolerance for activity to enable patient to perform ADL's. OT Education/Plan Problem List/Assessment Assessment: Decreased Activ Tolerance, Dependent Transfers, Impaired Funct Balance, Impaired I ADL's, Impaired Self-Care Skills Discharge Recommendations Plan/Recommendations: Continue POC Therapy Discharge Recommendati: Intermittent Supervision, Home & Family Equpiment Recommendations-D/C: Rails on Tub/Shower, Bath Chair Treatment Plan/Plan of Care Treatment,Training & Education: Yes Patient would benefit from OT for education, treatment and training to promote independence in ADL's, mobility, safety and/or upper extremity function for ADL's. Plan of Care: ADL Retraining, Caregiver Training, Functional Mobility, Group Exercise/Act as Ind, UE Funct Exercise/Act, UE Neuromus Re-Ed/Coord Treatment Duration: May 14, 2019 Frequency: At least 5 of 7 days/Wk (IRF) Estimated Hrs Per Day: 1.5 hours per day Agreement: Yes Rehab Potential: Good Time/GCodes Start Time: 15:50 ([id number]) Stop Time: 16:20 Total Time Billed (hr/min): 90 Billed Treatment Time OT eval: [id number] (10) OT/ PT co-treat [id number] (80) 1, EVM (10), EX 4(60), ADL (10) YADIRA WU OTR Apr 30, 2019 16:32
--- NOTE | 2019-04-30 17:47 | PM&R Post Admission Assessment ---
PM&R HP Date of Visit: Apr 30, 2019 Time of Visit: 18:10 History of Present Illness Chief complaint: Intracranial bleed in need of recovery History of present illness: This is an 78-year-old white female clinic patient of Dr. Boone Johnson who has a past medical history of TIA in the past who presented to the ER on 04/26/19 with altered mental status found to have intracranial bleed and subsequent hematoma. Patient was flown to [facility]. No surgical procedure was performed. Patient stabilized but remains with expressive aphasia and subtle cognitive deficit along with difficulty following cues for ADLs so she returns here to her home [facility] for aggressive inpatient rehabilitation in order to regain enough independence in order to return home to live independently. Her labs were reviewed from and all records summarized. Her family was at the bedside and they were updated on the plan. She denied any pain and she reports that she had an uneventful transfer from [place] to [place]. Past Sriviid-Omhamw-Vldjzl Hx Past Med/Social Hx: Reviewed Nursing Past Med/Soc Hx, Reviewed and Corrections made Patient Social History Marrital Status: Employed/Student: retired Alcohol Use: Denies Use Recreational Drug Use: No Smoking Status: Never a Smoker 2nd Hand Smoke Exposure: No Physical Abuse Screen: No Sexual Abuse: No Recent Foreign Travel: No Contact w/other who traveled: No Recent Hopitalizations: No Recent Infectious Disease Expo: No Immunizations Up To Date Pediatric: Yes Date of Pneumonia Vaccine: Mar 21, 2014 Date of Influenza Vaccine: Jan 29, 2019 Seasonal Allergies Seasonal Allergies: Yes Past Medical History Surgeries: Appendectomy, Gallbladder, Hysterectomy Cardiac: High Cholesterol, Hypertension, Valvular Heart Disease Neurological: TIA Sexually Transmitted Disease: No HIV/AIDS: No Female Reproductive Disorders: Denies Musculoskeletal: Arthritis, Fractures Endocrine: Diabetes, Non-Insulin dep Loss of Vision: Denies Hearing Impairment: Denies History of Blood Disorders: No Family History Patient reports no known family medical history. 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 Drive Self: Yes Current Level of Fuctioning Roll Left to Right: 4 Sit to Lyin Lying to Sitting/Side of Bed: 4 Sit to Stand: 4 Chair/Dsk-hf-Wjtyx Xfer: 4 Car Transfer: 4 Does the Patient Walk: Yes Mode of Locomotion: Walk Anticipated Mode of Locomotion: Walk Eatin Oral Hygiene: 7 Shower/Bathe Self: 7 Upper Body Dressin Lower Body Dressin On/Off Footwear: 6 Toileting Hygiene: 4 (SUP) PM&R Allergy/Meds/Data Review Allergies Uncoded Allergies: ERTHROMYCIN (Allergy, Unknown, 05/08/12) Home Medications Scheduled Escitalopram Oxalate (Escitalopram Oxalate), 20 MG PO HS, (Reported) Fenofibrate,Micronized (Fenofibrate), 134 MG PO DAILY, (Reported) Moexipril HCl (Moexipril HCl), 15 MG PO DAILY, (Reported) Pravastatin Sodium (Pravastatin Sodium), 40 MG PO HS, (Reported) Discontinued Medications Cephalexin (Cephalexin), 500 MG PO BID Discontinued Reason: Provider Change Fenofibrate (Fenofibrate), 54 MG PO HS, (Reported) Discontinued Reason: No Longer Taking Fenofibrate Nanocrystallized (Tricor), 145 MG PO DAILY, (Reported) Discontinued Reason: New Order Fenofibrate,Micronized (Fenofibrate), 134 MG PO DAILY, (Reported) Discontinued Reason: Prescription changed Metoprolol Succinate (Toprol Xl), 50 MG PO DAILY, (Reported) Discontinued Reason: No Longer Taking Current Medications Current Medications Reviewed Review of Systems Constitutional: see HPI, dizziness, malaise, weakness Psychiatric/Neurological: Weakness, Other (partial aphasia) Physical Exam Physical Exam Vital Signs Vital Signs - First Documented 04/30/19 14:40 Temp 36.6 Pulse 62 Resp 18 B/P (MAP) 139/73 Pulse Ox 98 O2 Delivery Room Air Capillary Refill : Height, Weight, BMI Height: 5'6.00" Weight: 196lbs. 0.0oz. 88.327478uh; 33.17 BMI Method:Stated General Appearance: No Apparent Distress, WD/WN, Chronically ill, Obese Eyes: Bilateral Eye Normal Inspection, Bilateral Eye PERRL HEENT: PERRL/EOMI, Normal ENT Inspection, Pharynx Normal Neck: Full Range of Motion, Normal Inspection, Non Tender, Supple, Carotid Bruit Respiratory: Chest Non Tender, Lungs Clear, Normal Breath Sounds, No Accessory Muscle Use, No Respiratory Distress Cardiovascular: Regular Rate, Rhythm, No Edema, No Gallop, No JVD, No Murmur, Normal Peripheral Pulses Gastrointestinal: Normal Bowel Sounds, No Organomegaly, No Pulsatile Mass, Non Tender, Soft Back: Normal Inspection, No CVA Tenderness, No Vertebral Tenderness Extremity: Normal Capillary Refill, Normal Inspection, Normal Range of Motion, Non Tender, No Calf Tenderness, No Pedal Edema Neurologic/Psychiatric: Alert, Oriented x3, No Motor/Sensory Deficits, Normal Mood/Affect, heeler machine II-XII Norm as Tested, Aphasia (partial, expressive type), Disoriented (subtle) Skin: Normal Color, Warm/Dry Lymphatic: No Adenopathy PM&R Medical Assessment & Plan REHAB/MEDICAL ASSESSMENT AND PLAN: REHAB IMPAIRMENT GROUP: Intracranial hemorrhage ETIOLOGIC DIAGNOSIS: Intracranial hemorrhage The comorbidities that impact the patients function and/or functional outcome by: expressive aphasia, subtle confusion, poor recall, DM, advanced age REHAB PLAN: The patient is being admitted to our comprehensive inpatient rehabilitation facility and can tolerate the intensity of service consisting of at least: 180 minutes of therapy a day, 5 out of 7 days a week Rehab treatment will consist of: PT OT ST will work together and provide aggressive therapy program in order to regain function to return home to live independently The patient/family has a good understanding of our discharge process and will benefit from an interdisciplinary inpatient rehabilitation program. The patient has potential to make improvement and is in need of at least two of the following multidisciplinary therapies including but not limited to physical, occupational, speech, and prosthetics and orthotics. Additionally the patient will need services from respiratory, nutritional services, wound care, psychology, etc. (Customize this to each patient). Given the patients complex condition and risk of further medical complications, rehabilitation services cannot be safely or effectively provided at a lower level of care such as a intermediate facility. BARRIERS TO DISCHARGE: Lives alone and has expressive aphasia ESTIMATED LOS: 10 days DISPOSITION: Home RELEVANT CHANGES SINCE PREADMISSION SCREENING: I have compared the patients medical and functional status at the time of the preadmission screening and there are: no changes PROGNOSIS: Good REHABILITATION GOALS: 1. Work to focus on cognitive recovery to regain function in order to DC home safely All the above goals were reviewed with the patient and he/she is in agreement. By signing this document, I acknowledge that I have personally performed a full physical examination on this patient within 24 hours of admission to this inpatient rehabilitation facility and have determined the patient to be able to tolerate the above course of treatment at an intensive level for a reasonable period of time. I will be completing a detailed individualized Plan of Care for this patient by day #4 of the patients stay based upon the Preadmission Screen, the Post-Admission Evaluation, and the therapy evaluations. Admission Dx/Comorbidities: (1) Intracranial bleed ICD Codes: I62.9 - Nontraumatic intracranial hemorrhage, unspecified (2) Expressive aphasia ICD Codes: R47.01 - Aphasia (3) Diabetes mellitus ICD Codes: E11.9 - Type 2 diabetes mellitus without complications (4) Hypertension ICD Codes: I10 - Essential (primary) hypertension (5) Hyperlipemia ICD Codes: E78.5 - Hyperlipidemia, unspecified (6) Insomnia ICD Codes: G47.00 - Insomnia, unspecified (7) History of TIA (transient ischemic attack) ICD Codes: Z86.73 - Personal history of transient ischemic attack (TIA), and cerebral infarction without residual deficits CONY COLLINS DO Apr 30, 2019 17:47
[2019-04-30] MEDS: ACETAMINOPHEN 500 MG TAB (TYLENOL) PO PRN (20:26)
[2019-04-30] MEDS: DOCUSATE SODIUM 100 MG (COLACE) CAP PO SCH (20:31)
[2019-04-30] MEDS: POLYETHYLENE GLYCOL 17 GM (MIRALAX) PACK PO SCH (20:31)
[2019-04-30] MEDS: SENNA W/DOCUSATE (SENOKOT S) TABLET PO SCH (20:31)
[2019-04-30] MEDS ORDERED: NON-FORMULARY MEDICATION 1 EA EA (Escitalopram Oxalate 20 MG) PO SCH (21:00)
[2019-04-30] MEDS ORDERED: NON-FORMULARY MEDICATION 1 EA EA (Pravastatin Sodium 40 MG) PO SCH (21:00)
[2019-05-01 05:20] VITALS: BP 153/74
[2019-05-01 06:26] LABS: BASOPHILS % (AUTO) 0 % (0-10); EOSINOPHILS # (AUTO) 0.2 10^3/uL (0.0-0.3); EOSINOPHILS % (AUTO) 3 % (0-10); HEMATOCRIT 37 % (35-52); HEMOGLOBIN 11.8 G/DL (11.5-16.0); LYMPHOCYTES # (AUTO) 1.6 X 10^3 (1.0-4.0); LYMPHOCYTES % (AUTO) 25 % (12-44); MEAN CORPUSCULAR HEMOGLOBIN 27 PG (25-34); MEAN CORPUSCULAR HGB CONC 32 G/DL (32-36); MEAN CORPUSCULAR VOLUME 84 FL (80-99); MONOCYTES # (AUTO) 0.4 X 10^3 (0.0-1.0); MONOCYTES % (AUTO) 7 % (0-12); NEUTROPHILS # (AUTO) 4.3 X 10^3 (1.8-7.8); NEUTROPHILS % (AUTO) 66 % (42-75); PLATELET COUNT 182 10^3/uL (130-400); WHITE BLOOD COUNT 6.6 10^3/uL (4.3-11.0)
[2019-05-01 06:48] LABS: ALBUMIN 3.7 GM/DL (3.2-4.5); BILIRUBIN,TOTAL 0.6 MG/DL (0.1-1.0); CALCIUM 9.4 MG/DL (8.5-10.1); CREATININE SERUM 0.94 MG/DL (0.60-1.30); TOTAL PROTEIN 6.1 GM/DL (6.4-8.2)
[2019-05-01 08:00] VITALS: BP 121/50
[2019-05-01] MEDS ORDERED: MOEXIPRIL HCL 15 MG PO SCH (09:00)
--- NOTE | 2019-05-01 09:18 | PM&R Progress Note ---
Subjective HPI/CC On Admission Date Seen by Provider: May 01, 2019 Time Seen by Provider: 08:45 Subjective/Events-last exam Pt had a pretty good night Took Tylenol for vague pain Reviewed labs, CBC and CMP all within normal limits, Blood sugar 113 On a carb restricted diet, she is a diet restricted diabetic Expressive aphasia will be the focus of aggressive therapy along with OT since she appears to have some deficits in ADL processes Will evaluate what she was on for a TIA before since all of this is contraindicated for at least 6 months but will confirm that Conferred with RN Reviewed therapy notes Checked meds and labs Review of Systems General: Fatigue Neurological: Change in speech, Confusion Objective Exam Vital Signs Vital Signs Date Time Temp Pulse Resp B/P (MAP) Pulse Ox O2 Delivery O2 Flow Rate FiO2 05/01/19 20:50 Room Air 05/01/19 17:02 36.2 61 16 126/75 (92) 97 Capillary Refill : Less Than 3 Seconds General Appearance: No Apparent Distress, WD/WN, Chronically ill, Obese HEENT: PERRL/EOMI, Normal ENT Inspection, Pharynx Normal Neck: Full Range of Motion, Normal Inspection, Non Tender, Supple Respiratory: Chest Non Tender, Lungs Clear, Normal Breath Sounds, No Accessory Muscle Use, No Respiratory Distress Cardiovascular: Regular Rate, Rhythm, No Edema, No Gallop, No JVD, No Murmur, Normal Peripheral Pulses Gastrointestinal: Normal Bowel Sounds, Non Tender, Soft Extremity: Normal Capillary Refill, Normal Inspection, Normal Range of Motion, Non Tender, No Calf Tenderness Neurologic/Psychiatric: Alert, Oriented x3, No Motor/Sensory Deficits, Normal Mood/Affect, parachute panel joiner II-XII Norm as Tested, Aphasia (partial), Disoriented Skin: Normal Color, Warm/Dry Lymphatic: No Adenopathy Results/Procedures Lab Patient resulted labs reviewed. FIM Transfers Therapy Code Descriptions/Definitions Functional [place] Measure: 0=Not Assessed/NA 4=Minimal Assistance 1=Total Assistance 5=Supervision or Setup 2=Maximal Assistance 6=Modified [place] 3=Moderate Assistance 7=Complete IndependenceSCALE: Activities may be completed with or without assistive devices. 5-Yuhvzgggwx-nvgtnmu completes the activity by him/herself with no assistance from a helper. 5-Set-up or Clean-up Assistance-helper sets up or cleans up; patient completes activity. [place] assists only prior to or following the activity. 4-Supervision or Touching Assistance-helper provides verbal cues and/or touching/steadying and/or contact guard assistance as patient completes activity. Assistance may be provided throughout the activity or intermittently. 3-Partial/Moderate Assistance-helper does LESS THAN HALF the effort. [place] lifts, holds or supports trunk or limbs, but provides less than half the effort. 2-Substantial/Maximal Assistance-helper does MORE THAN HALF the effort. [place] lifts or holds trunk or limbs and provides more than half the effort. 2-Xgsqbvmsa-rjherr does ALL the effort. Patient does none of the effort to complete the activity. Or, the assistance of 2 or more helpers is required for the patient to complete the activity. If activity was not attempted, code reason: 7-Patient Refused. 9-Not Applicable-not attempted and the patient did not perform the activity before the current illness, exacerbation or injury. 10-Not Attempted due to Environmental Limitations-(lack of equipment, weather restraints, etc.). 88-Not Attempted due to Medical Conditions or Safety Concerns. Roll Left to Right (QC): 4 Sit to Lying (QC): 4 Sit to Stand (QC): 4 Chair/Awm-xw-Qukfp Xfer(QC): 4 Car Transfer (QC): 4 Gait Training Does the Patient Walk?: Yes Walk 10 feet (QC): 4 Walk 50 ft with 2 Turns(QC): 4 Walk 150 ft (QC): 4 Walking 10ft/uneven surface-QC: 4 Gait Assistive Device: None Stair Training 1 Step (curb) (QC): 4 4 Steps (QC): 4 12 Steps (QC): 88 Balance Picking up an Object (QC): 4 ADL-Treatment Eating (QC): 6 Oral Hygiene (QC): 7 Shower/Bathe Self (QC): 7 Upper Body Dressing (QC): 7 Lower Body Dressing (QC): 7 On/Off Footwear (QC): 6 Toileting Hygiene (QC): 4 (SUP) Assessment/Plan Assessment and Plan Assess & Plan/Chief Complaint Assessment: CVA Expressive aphasia HTN HLP DM diet controlled Subtle confusion Plan: IRF protocol ADL independence Fall risk ST (1) Intracranial bleed (2) Insomnia (3) Diabetes mellitus (4) Expressive aphasia (5) Hyperlipemia (6) Hypertension (7) History of TIA (transient ischemic attack) CONY COLLINS DO May 01, 2019 09:18
--- NOTE | 2019-05-01 09:32 | Occupational Ther Daily Note ---
OT Current Status-Daily Note Subjective Pt sitting in chair, agrees to therapy. Pt has no c/o pain. ADL-Treatment Pt agreeable to shower this morning. Sit to stand from chair without assist. Pt retrieved clothing from closet and ambulated to restroom. Pt doffed shirt without assist. Doffed underwear and pants with supervision while standing. Transfer to walk in shower with bench with SBA for safety. Pt able to wash/dry all areas after set up. Don bra and pullover shirt with set up. Pt stood with supervision to thread bilateral LE into underwear and pants. Close supervision for balance and safety. Pt able to complete pant hike without assist. Pt donned socks and shoes with set up. Pt able to tie shoes without assist, but with increased time. Pt combed hair with set up. Declined to complete oral care, states she has already completed this prior to therapy. Therapy Code Descriptions/Definitions Functional [place] Measure: 0=Not Assessed/NA 4=Minimal Assistance 1=Total Assistance 5=Supervision or Setup 2=Maximal Assistance 6=Modified [place] 3=Moderate Assistance 7=Complete IndependenceSCALE: Activities may be completed with or without assistive devices. 6-Dgdypaqcnw-hcymbwo completes the activity by him/herself with no assistance from a helper. 5-Set-up or Clean-up Assistance-helper sets up or cleans up; patient completes activity. [place] assists only prior to or following the activity. 4-Supervision or Touching Assistance-helper provides verbal cues and/or touching/steadying and/or contact guard assistance as patient completes activity. Assistance may be provided throughout the activity or intermittently. 3-Partial/Moderate Assistance-helper does LESS THAN HALF the effort. [place] lifts, holds or supports trunk or limbs, but provides less than half the effort. 2-Substantial/Maximal Assistance-helper does MORE THAN HALF the effort. [place] lifts or holds trunk or limbs and provides more than half the effort. 5-Mheiludrg-bmyaiw does ALL the effort. Patient does none of the effort to complete the activity. Or, the assistance of 2 or more helpers is required for the patient to complete the activity. If activity was not attempted, code reason: 7-Patient Refused. 9-Not Applicable-not attempted and the patient did not perform the activity before the current illness, exacerbation or injury. 10-Not Attempted due to Environmental Limitations-(lack of equipment, weather restraints, etc.). 88-Not Attempted due to Medical Conditions or Safety Concerns. Shower/Bathe Self (QC): 5 Upper Body Dressing (QC): 5 Lower Body Dressing (QC): 4 On/Off Footwear: 5 Toilet Transfer (QC): 5 Other Treatment Gait to therapy gym without AD. Pt requires occasional cues for safety. Pt completed putty activity with bilateral hands to increase strength and coordination/manipulation skills. Pt able to remove small beads from medium resistance putty with increased time. Arm bike x10 minutes to increase overall strength and activity tolerance needed for functional task completion. Pt performed task with minimal resistance and steady pace. No rest breaks needed. Pt completed standing mtz bag toss to increase standing balance. Pt able to pick mtz bags up off floor with close supervision after task. Pt returned to room, sitting in chair with needs met after session. OT Short Term Goals Short Term Goals Time Frame: Apr 30, 2019 Shower/bathe self: 4 Upper body dressin Lower body dressin OT Penitentiary Goals Penitentiary Goals Time Frame: May 14, 2019 Eating (QC): 6 Oral Hygiene (QC): 6 Toileting Hygiene (QC): 6 Shower/Bathe Self (QC): 6 Upper Body Dressing (QC): 6 Lower Body Dressing (QC): 6 On/Off Footwear (QC): 6 Additional Goals: 1-Demonstrate ADL Tasks, 2-Verbalize Understanding, 3- ImproveStrength/Kapil 1=Demonstrate adherence to instructed precautions during ADL tasks. 2=Patient will verbalize/demonstrate understanding of assistive devices/modifications for ADL. 3=Patient will improve strength/tolerance for activity to enable patient to perform ADL's. OT Education/Plan Discharge Recommendations Plan/Recommendations: Continue POC Treatment Plan/Plan of Care Patient would benefit from OT for education, treatment and training to promote independence in ADL's, mobility, safety and/or upper extremity function for ADL's. Plan of Care: ADL Retraining, Caregiver Training, Functional Mobility, Group Exercise/Act as Ind, UE Funct Exercise/Act, UE Neuromus Re-Ed/Coord Treatment Duration: May 14, 2019 Frequency: At least 5 of 7 days/Wk (IRF) Estimated Hrs Per Day: 1.5 hours per day Agreement: Yes Rehab Potential: Good Time/GCodes Start Time: 08:00 Stop Time: 09:30 Total Time Billed (hr/min): 90 Billed Treatment Time 1 visit, ADLx3(45minutes), EXx2(30minutes), FA(15minutes) SELAM RECINOS OT May 01, 2019 09:32
[2019-05-01] MEDS: lisINopril 20 MG (PRINIVIL) TABLET PO SCH (09:54)
[2019-05-01] MEDS: FENOFIBRATE 134 MG (LOFIBRA) CAPSULE PO SCH (09:54)
[2019-05-01] MEDS: POLYETHYLENE GLYCOL 17 GM (MIRALAX) PACK PO SCH ×2 (09:56→20:03)
[2019-05-01] MEDS: DOCUSATE SODIUM 100 MG (COLACE) CAP PO SCH ×2 (09:56→20:03)
[2019-05-01] MEDS: SENNA W/DOCUSATE (SENOKOT S) TABLET PO SCH ×2 (09:57→20:03)
--- NOTE | 2019-05-01 10:07 | NUR ---
PRINCIPAL CLERK met with patient to complete initial assessment. Patient was alert and oriented, but exhibited difficulty staying on task with tangential speech; however, all related to current medical concerns. Patient does appear physically high functioning with slight cognitive impairments. Patient reports previous TIA in June 2018. 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 Prior to hospitalization, patient reports living independently in [place], [place] The home is one level with two steps and railing at the entrance. Prior to hospitalization, patient was independent, required no AD, was active in the community and attended a wellness program two days a week at [facility]. Patient identifies her son, Maxime ([phone]) and DIL, Lynnette ([phone]) as primary contacts. Patient also lists her daughter, Mery ([phone]) as a contact; however, she will be traveling to [place] soon. PCP identified as Dr. Boone Johnson. Insurance verified as [facility] and [facility] [place] with prescription coverage and [facility] as her preferred pharmacy. SW reviewed typical ARU length of stay and weekly team conferences, she expresses no questions or concerns at this time.
[2019-05-01] MEDS: amLODIPine 10 MG (NORVASC) TAB PO SCH (10:11)
--- NOTE | 2019-05-01 11:30 | NUR ---
PATIENT REQUESTING TO GET UP TO BATHROOM ALONE, AND ROSHAN, PT STATES SHE IS DOING WELL AND OKAY'D A TRIAL BASIS OF HER GOING TO BATHROOM INDEPENDENTLY.
--- NOTE | 2019-05-01 11:52 | Physical Therapy Daily Note ---
PT Daily Note-Current Subjective Patient in recliner pre tx, agrees to PT, has no complaints of pain. Patient has word finding difficulties. Appearance Patient in recliner post tx with nurse call, phone, tray. Patient inquires about going to the bathroom by herself, she has no difficulty with balance during treatment, discussed with nurse and we agree to have her be independent in her room for a trial. Mental Status Patient Orientation: Person, Unable to Assess Transfers SCALE: Activities may be completed with or without assistive devices. 9-Eohhmveiqg-vuocacc completes the activity by him/herself with no assistance from a helper. 5-Set-up or Clean-up Assistance-helper sets up or cleans up; patient completes activity. [place] assists only prior to or following the activity. 4-Supervision or Touching Assistance-helper provides verbal cues and/or touching/steadying and/or contact guard assistance as patient completes activity. Assistance may be provided throughout the activity or intermittently. 3-Partial/Moderate Assistance-helper does LESS THAN HALF the effort. [place] lifts, holds or supports trunk or limbs, but provides less than half the effort. 2-Substantial/Maximal Assistance-helper does MORE THAN HALF the effort. [place] lifts or holds trunk or limbs and provides more than half the effort. 7-Mtpyijslt-azsdgf does ALL the effort. Patient does none of the effort to complete the activity. Or, the assistance of 2 or more helpers is required for the patient to complete the activity. If activity was not attempted, code reason: 7-Patient Refused. 9-Not Applicable-not attempted and the patient did not perform the activity be fore the current illness, exacerbation or injury. 10-Not Attempted due to Environmental Limitations-(lack of equipment, weather restraints, etc.). 88-Not Attempted due to Medical Conditions or Safety Concerns. Sit to Stand (QC): 6 Chair/Rce-vm-Cozpx Xfer(QC): 6 Gait Training Distance: 1000', 500', 150' Walk 10 feet (QC): 6 Walk 50 ft with 2 Turns(QC): 6 Walk 150 ft (QC): 6 Gait Assistive Device: None Fair to slow pace, steady, no LOB or unsteadiness even with turning. Exercises Standing: Heel/toe raises, Mini squats, Step-ups Standing Reps: 15 balance on airex with feet together for 1 min NuStep Minutes: 15 NuStep Workload: 5 Treatments transfers, ambulation, LE strengthening Assessment Current Status: Fair Progress independent mobility PT Short Term Goals Short Term Goals Time Frame: May 07, 2019 Sit to lyin Lying to sitting on side of be: 5 Sit to stand: 5 Walk 150 feet: 5 PT Fdc Goals Fdc Goals PT Clinical Courier Goals Time Frame: May 15, 2019 Roll Left & Right (QC): 6 Sit to Lying (QC): 6 Lying-Sitting on Side/Bed(QC): 6 Sit to Stand (QC): 6 Chair/Doi-yf-Bpwer Xfer(QC): 6 Toilet Transfer (QC): 6 Car Transfer (QC): 6 Walk 10 feet (QC): 6 Walk 50ft with 2 Turns (QC): 6 Walk 150 ft (QC): 6 Walking 10ft on Uneven Surface: 6 1 Step (curb) (QC): 6 4 Steps (QC): 6 12 Steps (QC): 6 Picking up an Object (QC): 6 PT Plan Problem List Problem List: Activity Tolerance, Functional Strength, Safety, Balance, Gait, Transfer Treatment/Plan Treatment Plan: Continue Plan of Care Treatment Plan: Bed Mobility, Education, Functional Activity Kapil, Functional Strength, Group Therapy, Gait, Safety, Therapeutic Exercise, Transfers Treatment Duration: May 15, 2019 Frequency: At least 5 of 7 days/Wk (IRF) Estimated Hrs Per Day: 1.5 hours per day Patient and/or Family Agrees t: Yes Safety Risks/Education Patient Education: Gait Training, Transfer Techniques, Correct Positioning, Safety Issues Teaching Recipient: Patient Teaching Methods: Demonstration, Discussion Response to Teaching: Reinforcement Needed Time/GCodes Time In: 1100 Time Out: 1200 Total Billed Treatment Time: 60 Total Billed Treatment 1 visit EX 30' GT 30' ROSHAN ZHANG PT May 01, 2019 11:52
--- NOTE | 2019-05-01 13:30 | ST Cognitive Linguistic Eval ---
Speech Evaluation-General Medical Diagnosis left temporal/parietal hemorrhage Onset Date: Apr 30, 2019 Therapy Diagnosis Therapy Diagnosis: Cognitive-communication, Aphasia Referral Referring Physician: Dr. Hills Medical History Pertinent Medical History: HTN Reviewed History: Yes Social History Current Living Status: Alone (supportive family that checks on her frequently) Speech PLF-Current Status Prior Level of Function Patient lived alone with a strong supportive family for assistance with needs as needed. Subjective Patient was pleasant and cooperative with the cognitive assessment. Language Eval: Auditory Comprehends Simple Yes/No Ques: Functional Indent/Objects Multiple Pozo: Functional Ident/Pics in Multiple Pozo: Functional Follows 1-Step Commands: Functional Follows Complex Directions: Mild Follows General Conversations: Mild Language Eval: Verbal Language Completes Spontaneous Greeting: Functional Produces Auto, Serial Info: Functional Imitates Simple Words/Phrases: Functional Word Finding: Mild Requests Basic Needs: Functional States Basic Personal Info: Mild Expresses Complex Ideas: Mild Objective Cognitive Domain Attention: WNL Memory: Mild Problem Solving: Mild Executive Functions: Mild Visuospatial Skills: WNL Composite Severity Rating: Mild Clock Drawing Severity Rating: WN Objective Formal/Standardized Tests [facility] Mental Status ([facility] [email or web address] Results 21/30, Mild Neurocognitive Disorder range of function Oral Motor/Speech Production Within Normal Limits Impression Patient was admitted to the ARU s/p CVA for further therapies. Patient was given the UMS with a score of 21/30 obtained. This score falls in the MNCD range of function. Patient will be receiving skilled ST services for improving memory, problem solving and speech function for expressive and receptive. Therapy focus will be on improving safety awareness and independence for a safe return home. Speech Patient Assess Expression of Ideas/Wants: Frequently (2) Understanding Verbal Content: Usually Understands (3) Brief Interview-Mental Status: Yes Repetition of Three Words: Three (3) Temporal Orientation: Year: Correct (3) Temporal Orientation: Month: Accurate within 5 days(2) Temporal Orientation: Day: Correct (1) Recall : Wear to say "Sock": Yes, no cue required (2) Recall : Color: Yes, after cueing (1) Recall : Bed: Yes,after cueing (1) Memory/Recall Ability: Current season, Location of own room, That he or she is in a hsp/hsp unit Speech Short Term Goals Short Term Goals Short Term Goals 1) Patient will complete memory tasks related to her daily needs with 90% or greater with minimal cues. 2) Patient will complete safety awareness tasks related to her daily needs with 90% or greater with minimal cues. 3) Patient will complete problem solving tasks related to her daily needs with 90% or greater with minimal cues. 4) Patient will be able to complete word finding tasks related to her daily needs with 90% or greater with minimal cues. Speech [facility] Goals Vrt Mechanic Goals Patient will improve cognitive-communication necessary for safety and daily living tasks with minimal assist. Speech-Plan Patient/Family Goals Patient/Family Goals: Patient plans on returning home with family support upon rehab discharge. Treatment Plan Speech Therapy Treatment Plan: Continue Plan of Care Patient will receive skilled ST for improving overall cognitive function in order to safely return home. Treatment Duration: May 11, 2019 Frequency: 5 times per week Estimated Hrs Per Day: .5 hour per day Rehab Potential: Good Barriers to Learning: Patient's recent CVA Pt/Family Agrees to Plan: Yes Safety Risks/Education Teaching Recipient: Patient Teaching Methods: Discussion Response to Teaching: Verbalize Understanding Education Topics Provided: Safety within her room and communication of her wants/needs. Time Speech Therapy Time In: 10:30 Speech Therapy Time Out: 10:45 Total Billed Time: 15 Billed Treatment Time 1. SPSNDCOMP MIMI Granda May 01, 2019 13:30
--- NOTE | 2019-05-01 13:56 | Physical Therapy Daily Note ---
PT Daily Note-Current Subjective Patient in recliner pre tx, agrees to PT, no complaints of pain. Appearance Patient in recliner post tx with nurse call, phone, tray, all needs met. Mental Status Patient Orientation: Person Transfers SCALE: Activities may be completed with or without assistive devices. 4-Vgobtvpdsb-abcjppk completes the activity by him/herself with no assistance from a helper. 5-Set-up or Clean-up Assistance-helper sets up or cleans up; patient completes activity. [place] assists only prior to or following the activity. 4-Supervision or Touching Assistance-helper provides verbal cues and/or touching/steadying and/or contact guard assistance as patient completes activity. Assistance may be provided throughout the activity or intermittently. 3-Partial/Moderate Assistance-helper does LESS THAN HALF the effort. [place] lifts, holds or supports trunk or limbs, but provides less than half the effort. 2-Substantial/Maximal Assistance-helper does MORE THAN HALF the effort. [place] lifts or holds trunk or limbs and provides more than half the effort. 6-Cyejgphks-qdjdxd does ALL the effort. Patient does none of the effort to complete the activity. Or, the assistance of 2 or more helpers is required for the patient to complete the activity. If activity was not attempted, code reason: 7-Patient Refused. 9-Not Applicable-not attempted and the patient did not perform the activity before the current illness, exacerbation or injury. 10-Not Attempted due to Environmental Limitations-(lack of equipment, weather restraints, etc.). 88-Not Attempted due to Medical Conditions or Safety Concerns. Sit to Stand (QC): 6 Chair/Ntv-ac-Nyczm Xfer(QC): 6 Gait Training Distance: 1999' Walk 10 feet (QC): 6 Walk 50 ft with 2 Turns(QC): 6 Walk 150 ft (QC): 6 Gait Assistive Device: None Patient ambulates independently, went through community environment. Treatments gait training Assessment Current Status: Fair Progress independent with ambulation PT Short Term Goals Short Term Goals Time Frame: May 07, 2019 Sit to lyin Lying to sitting on side of be: 5 Sit to stand: 5 Walk 150 feet: 5 PT Assistant Clinical Nurse Manager Goals Assistant Clinical Nurse Manager Goals PT Assistant Clinical Nurse Manager Goals Time Frame: May 15, 2019 Roll Left & Right (QC): 6 Sit to Lying (QC): 6 Lying-Sitting on Side/Bed(QC): 6 Sit to Stand (QC): 6 Chair/Xmj-nq-Vnotn Xfer(QC): 6 Toilet Transfer (QC): 6 Car Transfer (QC): 6 Walk 10 feet (QC): 6 Walk 50ft with 2 Turns (QC): 6 Walk 150 ft (QC): 6 Walking 10ft on Uneven Surface: 6 1 Step (curb) (QC): 6 4 Steps (QC): 6 12 Steps (QC): 6 Picking up an Object (QC): 6 PT Plan Problem List Problem List: Activity Tolerance, Functional Strength, Safety, Balance, Gait, Transfer Treatment/Plan Treatment Plan: Continue Plan of Care Treatment Plan: Bed Mobility, Education, Functional Activity Kapil, Functional Strength, Group Therapy, Gait, Safety, Therapeutic Exercise, Transfers Treatment Duration: May 15, 2019 Frequency: At least 5 of 7 days/Wk (IRF) Estimated Hrs Per Day: 1.5 hours per day Patient and/or Family Agrees t: Yes Safety Risks/Education Patient Education: Gait Training, Correct Positioning, Safety Issues Teaching Recipient: Patient Teaching Methods: Demonstration, Discussion Response to Teaching: Reinforcement Needed Time/GCodes Time In: 1330 Time Out: 1400 Total Billed Treatment Time: 30 Total Billed Treatment 1 visit GT 30' ROSHAN ZHANG PT May 01, 2019 13:55
--- NOTE | 2019-05-01 15:07 | NUR ---
"RD ASSESSMENT PMHx: TIA; DM; hypercholesterolemia; HTN PT INTERACTION: Pt was awake and pleasant during nutrition assessment. Pt states current appetite is good and has been for some time. Note avg PO intake of 75% x1d, per chart review. Pt states following a regular diet at home and has no issues with chewing/swallowing food. Pt states no recent issues with n/v/c/d at this time. Note last BM was 05/01 and pt currently on bowel regimen of colace BID; miralax BID; and senna BID, per chart review. Pt states recent 5# wt loss x1mon. Note unable to determine recent wt hx, per chart review. ABNORMAL NUTRITION-RELATED LAB VALUES LOW: Pro 6.1 HIGH: Cl 111; BUN 29; glu 113 Est. kcal needs: 6922-9950 kcal | 15-20 kcal/kg Est. Pro needs: 77-96 g Pro | 0.8-1.0 g Pro/kg PES STATEMENT: Given pt's PO intake, no nutrition diagnosis at this time (NO-1.1) INTERVENTION: Continue with current diet order of CHO 60g/m 1snack diet. Will continue to follow and reassess as pt needs and status change. MONITOR/EVALUATE: PO Intake; Plan of Care; Hydration Status; Weight Status; Lab Values Raina Mccarty, MS, RD, LD"
[2019-05-01 17:02] VITALS: BP 126/75
[2019-05-01] MEDS: MELATONIN 3 MG TABLET PO PRN (20:02)
[2019-05-01] MEDS: ACETAMINOPHEN 500 MG TAB (TYLENOL) PO PRN (20:03)
[2019-05-02 06:00] VITALS: BP 179/71
--- NOTE | 2019-05-02 08:00 | NUR ---
STATES SLEPT WELL. DENIES PAIN. SON AT BEDSIDE STATES HE HAS NOTICED "TREMENDOUS IMPROVEMENT" IN COGNITION SINCE HAD HEMORRHAGE.
[2019-05-02] MEDS: amLODIPine 10 MG (NORVASC) TAB PO SCH (09:34)
[2019-05-02] MEDS: FENOFIBRATE 134 MG (LOFIBRA) CAPSULE PO SCH (09:34)
[2019-05-02] MEDS: lisINopril 20 MG (PRINIVIL) TABLET PO SCH (09:34)
[2019-05-02] MEDS: SENNA W/DOCUSATE (SENOKOT S) TABLET PO SCH ×2 (09:36→19:41)
[2019-05-02] MEDS: POLYETHYLENE GLYCOL 17 GM (MIRALAX) PACK PO SCH ×2 (09:36→19:41)
[2019-05-02] MEDS: DOCUSATE SODIUM 100 MG (COLACE) CAP PO SCH ×2 (09:36→19:41)
--- NOTE | 2019-05-02 10:03 | Individualized Plan of Care ---
Individualized Plan of Care Rehab Nursing IPOC Order Admission Date Apr 30, 2019 at 14:40 Current Orders Orders Admission Order(Inpt,Obs,Sdc) (04/30/19 13:09) Vital Signs: Per Unit Policy ( 08,16,00 (04/30/19 13:09) Mele Moore (04/30/19 13:09) Sequential Compression Device Q4H (04/30/19 13:09) Video Control Operator-Inpt Rehab Con (04/30/19 13:09) Rehab Nursing Orders-Ipoc (04/30/19 13:09) Physical Therapy Rehab Orders (04/30/19 13:09) Occupational Therapy Rehab Ord (04/30/19 13:09) Speech Therapy Rehab Orders (04/30/19 13:09) Cbc With Automated Diff (05/01/19 06:00) Comprehensive Metabolic Panel (05/01/19 06:00) General/Regular (04/30/19 Dinner) Precautions (Aru) (04/30/19 13:09) Weekly Weight WEEK (04/30/19 13:09) Rehab-Intensity Of Therapy (04/30/19 13:09) Initiate Admission Nursing Pro .admission (04/30/19 13:09) Acetaminophen Tablet (Tylenol Tablet) (04/30/19 13:15) Alprazolam Tablet (Xanax Tablet) (04/30/19 13:15) Calcium Carbonate Chew Tablet (Antacid C (04/30/19 13:15) Diphenhydramine Tablet (Benadryl Tablet) (04/30/19 13:15) Docusate Sodium Capsule (Colace Capsule) (04/30/19 21:00) Docusate Sodium Capsule (Colace Capsule) (04/30/19 13:15) Bisacodyl Suppository (Dulcolax Supposit (04/30/19 13:15) Lactulose Oral Solution (Enulose Oral So (04/30/19 13:15) Na Phos/Na Biphos Enema (Fleet Enema Joby (04/30/19 13:15) Guaifenesin/Codeine Syrup (Robitussin Ac (04/30/19 13:15) Hydrocodone/Apap 5/325 Tablet (Lortab 5 (04/30/19 13:15) Loperamide Tablet (Imodium Tablet) (04/30/19 13:15) Melatonin Tablet (Melatonin Tablet) (04/30/19 13:15) Polyethylene Glycol Powder Pkt (Miralax (04/30/19 21:00) Ondansetron Oral Dissolve Tab (Zofran (04/30/19 13:15) Senna S Tablet (Senokot S Tablet) (04/30/19 21:00) Initiate Admission Nursing Pro .admission (04/30/19 13:09) Vte Contraindication (04/30/19 13:09) Transfer - Bed/Room/Location (04/30/19 14:40) Speech Therapy Orders (04/30/19 16:03) Ambulate ,, (04/30/19 16:03) Sequential Compression Device Q4H (04/30/19 16:03) Dvt/Vte Risk - Notifiy Physici Q4H (04/30/19 16:03) Patient Visit (04/30/19 ) Ex Neuromuscular, Ea 15 Min (04/30/19 ) Gait Training, Ea 15 Min (04/30/19 ) Cho 60g/M 1snack (16-2000 Atul) (04/30/19 Dinner) Amlodipine Tablet (Norvasc Tablet) (05/01/19 09:00) Fenofibrate,Micronized Capsule (Lofibra (05/01/19 09:00) (Nf) Escitalopram Oxalate (04/30/19 21:00) (Nf) Moexipril Hcl (05/01/19 09:00) (Nf) Pravastatin Sodium (04/30/19 21:00) Atorvastatin Tablet (Lipitor Tablet) (04/30/19 21:00) Citalopram Tablet (Celexa Tablet) (04/30/19 21:00) Lisinopril Tablet (Zestril Tablet) (05/01/19 09:00) Pt Eval Moderate Complexity (04/30/19 ) Patient Visit (05/01/19 ) Speech Sound Lang Comp (05/01/19 ) Patient Visit (05/01/19 ) Exercise Therap, Ea 15 Min (05/01/19 ) Gait Training, Ea 15 Min (05/01/19 ) Rehab Nursing Orders: Ongoing Assess. of Cognitive Status, Ongoing Assess. of Function Status, Bowel Management, Disease Management & Educaiton, DVT Prophylaxis, Fall Prevention, Fluid/Electrolyte/Nutrition Mgmt, Medication Management & Education, Management of Risks & Complications, Management of Skin Intergrity, Nutrition Management, Pain Management, Patient/Family Support, Safety Management Intensity of Therapy to be met Patient to be seen: Min.3h per day/5 of 7d PT IPOC Problem List: Activity Tolerance, Functional Strength, Safety, Balance, Gait, Transfer Treatment Plan: Continue Plan of Care Bed Mobility, Education, Functional Activity Kapil, Functional Strength, Group Therapy, Gait, Safety, Therapeutic Exercise, Transfers Treatment Duration: May 15, 2019 Frequency: At least 5 of 7 days/Wk (IRF) Estimated Hrs Per Day: 1.5 hours per day OT IPOC Problems: Decreased Activ Tolerance, Dependent Transfers, Impaired Funct Balance, Impaired I ADL's, Impaired Self-Care Skills OT Treatment, Training and Edu: Yes Plan of Care: ADL Retraining, Caregiver Training, Functional Mobility, Group Exercise/Act as Ind, UE Funct Exercise/Act, UE Neuromus Re-Ed/Coord Treatment Duration: May 14, 2019 Frequency: At least 5 of 7 days/Wk (IRF) Estimated Hrs Per Day: 1.[address] IPOC Speech Therapy Treatment Plan: Continue Plan of Care Treatment Duration: May 11, 2019 Frequency: 5 times per week Estimated Hrs Per Day: .5 hour per day Video Control Operator/Case Mgmt Video Control Operator/Case Managemen: Discharge Planning Dietitian/Door Core Assembler Dietitian/Door Core Assembler to monitor nutritional status and make changes and/or recommendations as needed and work with speech pathology on dietary upgrades as the occur. 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 with severe deficits of ADL performance will be in need of close monitoring due to high risk status for recurrent stroke Medical Issues: Bowel/Bladder Function, DVT Prophylaxis, Falls Precautions, Fluid/Electrolyte/Nutrition Balance, Infection Protection, Pain Management Brief Synthesis of Preadmission Screen, Post-Admission Evaluation, and Therapy Evaluations: Physical therapy will provide strengthening exercises and fall prevention Occupational therapy will focus on regaining independent ADLs Speech therapy will work on communication and cognition Medical Prognosis: good Anticipated Length of Stay: 7 days CONY COLLINS DO May 02, 2019 10:03
--- NOTE | 2019-05-02 10:03 | PM&R Progress Note ---
Subjective HPI/CC On Admission Date Seen by Provider: May 02, 2019 Time Seen by Provider: 09:00 Subjective/Events-last exam Pt had a pretty good night Reviewed labs from yesterday, CBC and CMP all within normal limits, Blood sugar 113 On a carb restricted diet, she is a diet restricted diabetic Patient was on aspirin daily due to history of TIA confirmed from primary care provider office and will not be an option for a short time to restart that due to bleed Patient certainly has expressive aphasia and cognitive deficit confirmed with SLUMS score of 21/30 Conferred with RN Reviewed therapy notes Checked meds and labs Review of Systems General: Fatigue Neurological: Change in speech, Confusion Objective Exam Vital Signs Vital Signs Date Time Temp Pulse Resp B/P (MAP) Pulse Ox O2 Delivery O2 Flow Rate FiO2 05/02/19 09:00 Room Air 05/02/19 06:00 36.7 57 18 179/71 (107) 97 Capillary Refill : Less Than 3 Seconds General Appearance: No Apparent Distress, WD/WN, Chronically ill, Obese HEENT: PERRL/EOMI, Normal ENT Inspection, Pharynx Normal Neck: Full Range of Motion, Normal Inspection, Non Tender, Supple Respiratory: Chest Non Tender, Lungs Clear, Normal Breath Sounds, No Accessory Muscle Use, No Respiratory Distress Cardiovascular: Regular Rate, Rhythm, No Edema, No Gallop, No JVD, No Murmur, Normal Peripheral Pulses Gastrointestinal: Normal Bowel Sounds, Non Tender, Soft Back: Normal Inspection, No CVA Tenderness, No Vertebral Tenderness Extremity: Normal Capillary Refill, Normal Inspection, Normal Range of Motion, Non Tender, No Calf Tenderness Neurologic/Psychiatric: Alert, Oriented x3, No Motor/Sensory Deficits, Normal Mood/Affect, separator tender II-XII Norm as Tested, Aphasia (partial), Disoriented Skin: Normal Color, Warm/Dry Lymphatic: No Adenopathy Results/Procedures Lab Patient resulted labs reviewed. FIM Transfers Therapy Code Descriptions/Definitions Functional [place] Measure: 0=Not Assessed/NA 4=Minimal Assistance 1=Total Assistance 5=Supervision or Setup 2=Maximal Assistance 6=Modified [place] 3=Moderate Assistance 7=Complete IndependenceSCALE: Activities may be completed with or without assistive devices. 5-Kqcypjorcz-knzrijc completes the activity by him/herself with no assistance from a helper. 5-Set-up or Clean-up Assistance-helper sets up or cleans up; patient completes activity. [place] assists only prior to or following the activity. 4-Supervision or Touching Assistance-helper provides verbal cues and/or touching/steadying and/or contact guard assistance as patient completes activity. Assistance may be provided throughout the activity or intermittently. 3-Partial/Moderate Assistance-helper does LESS THAN HALF the effort. [place] li fts, holds or supports trunk or limbs, but provides less than half the effort. 2-Substantial/Maximal Assistance-helper does MORE THAN HALF the effort. [place] lifts or holds trunk or limbs and provides more than half the effort. 4-Shskitxnl-tusexr does ALL the effort. Patient does none of the effort to complete the activity. Or, the assistance of 2 or more helpers is required for the patient to complete the activity. If activity was not attempted, code reason: 7-Patient Refused. 9-Not Applicable-not attempted and the patient did not perform the activity before the current illness, exacerbation or injury. 10-Not Attempted due to Environmental Limitations-(lack of equipment, weather restraints, etc.). 88-Not Attempted due to Medical Conditions or Safety Concerns. Roll Left to Right (QC): 4 Sit to Lying (QC): 4 Sit to Stand (QC): 6 Chair/Dgk-ol-Bkylj Xfer(QC): 6 Car Transfer (QC): 4 Gait Training Does the Patient Walk?: Yes Distance: 2000' Walk 10 feet (QC): 6 Walk 50 ft with 2 Turns(QC): 6 Walk 150 ft (QC): 6 Walking 10ft/uneven surface-QC: 4 Gait Assistive Device: None Wheelchair Training Does the Pt Use a Wheelchair?: No Stair Training 1 Step (curb) (QC): 4 4 Steps (QC): 4 12 Steps (QC): 88 Balance Picking up an Object (QC): 4 ADL-Treatment Eating (QC): 6 Oral Hygiene (QC): 7 Shower/Bathe Self (QC): 5 Upper Body Dressing (QC): 5 Lower Body Dressing (QC): 4 On/Off Footwear (QC): 5 Toileting Hygiene (QC): 4 (SUP) Toilet Transfer (QC): 5 Assessment/Plan Assessment and Plan Assess & Plan/Chief Complaint Assessment: CVA Expressive aphasia HTN HLP DM diet controlled Subtle confusion with SLUMS Plan: IRF protocol ADL independence Fall risk ST (1) Intracranial bleed (2) Insomnia (3) Diabetes mellitus (4) Expressive aphasia (5) Hyperlipemia (6) Hypertension (7) History of TIA (transient ischemic attack) CONY COLLINS DO May 02, 2019 10:02
--- NOTE | 2019-05-02 11:04 | Occupational Ther Daily Note ---
OT Current Status-Daily Note Subjective Pt sitting in chair, agrees to treatment. Pt has no c/o pain. Pt has word finding difficulties and conversation is difficult to follow at times. ADL-Treatment Therapy Code Descriptions/Definitions Functional [place] Measure: 0=Not Assessed/NA 4=Minimal Assistance 1=Total Assistance 5=Supervision or Setup 2=Maximal Assistance 6=Modified [place] 3=Moderate Assistance 7=Complete IndependenceSCALE: Activities may be completed with or without assistive devices. 3-Nyugggaqvt-rmtgwcw completes the activity by him/herself with no assistance from a helper. 5-Set-up or Clean-up Assistance-helper sets up or cleans up; patient completes activity. [place] assists only prior to or following the activity. 4-Supervision or Touching Assistance-helper provides verbal cues and/or touching/steadying and/or contact guard assistance as patient completes activity. Assistance may be provided throughout the activity or intermittently. 3-Partial/Moderate Assistance-helper does LESS THAN HALF the effort. [place] lifts, holds or supports trunk or limbs, but provides less than half the effort. 2-Substantial/Maximal Assistance-helper does MORE THAN HALF the effort. [place] lifts or holds trunk or limbs and provides more than half the effort. 5-Kxjfiqhkf-xqjnpx does ALL the effort. Patient does none of the effort to complete the activity. Or, the assistance of 2 or more helpers is required for the patient to complete the activity. If activity was not attempted, code reason: 7-Patient Refused. 9-Not Applicable-not attempted and the patient did not perform the activity before the current illness, exacerbation or injury. 10-Not Attempted due to Environmental Limitations-(lack of equipment, weather restraints, etc.). 88-Not Attempted due to Medical Conditions or Safety Concerns. Oral Hygiene (QC): 6 (Pt stood at sink to complete oral care without assist. Pt completed other grooming tasks without assist as well.) Shower/Bathe Self (QC): 6 (Pt able to wash/dry all areas without assist. Pt completed part of bathing while seated, but did not have any LOB during standing bathing tasks.) Upper Body Dressing (QC): 6 (Pt retrieved clothing from closet without assist, no LOB noted. Pt donned bra and pullover shirt without assist.) Lower Body Dressing (QC): 6 (Pt retrieved clothing from closet. Doffed/donned underwear and pants without assist.) On/Off Footwear: 6 (Pt donned socks and shoes without assist while seated EOB.) Toileting Hygiene (QC): 6 (Pt toileted x2 during session. Able to complete toileting hygiene and manipulate clothing without assist.) Toilet Transfer (QC): 6 (Transferred to toilet x2 during session using grab bar for safety.) Other Treatment Pt ambulated to therapy gym without AD, no LOB noted. Pt completed resistance peg activity with bilateral UE with 1# weights in place to increase st rength/activity tolerance and coordination skills. Pt completed fine motor task with nuts and bolts using bilateral UE with 1# weights in place to increase strength and coordination/manipulation skills. Pt performed task with increased time, but did not require any assistance. Pt performed balance activity by ambulating throughout gym and retrieving items from various heights. Pt able to perform task without any LOB. Pt returned to room, sitting in chair with needs met after session. OT Short Term Goals Short Term Goals Time Frame: Apr 30, 2019 Shower/bathe self: 4 Upper body dressin Lower body dressin OT Spinner Concrete Pipe Goals Spinner Concrete Pipe Goals Time Frame: May 14, 2019 Eating (QC): 6 Oral Hygiene (QC): 6 Toileting Hygiene (QC): 6 Shower/Bathe Self (QC): 6 Upper Body Dressing (QC): 6 Lower Body Dressing (QC): 6 On/Off Footwear (QC): 6 Additional Goals: 1-Demonstrate ADL Tasks, 2-Verbalize Understanding, 3- ImproveStrength/Kapil 1=Demonstrate adherence to instructed precautions during ADL tasks. 2=Patient will verbalize/demonstrate understanding of assistive dev ices/modifications for ADL. 3=Patient will improve strength/tolerance for activity to enable patient to perform ADL's. OT Education/Plan Discharge Recommendations Plan/Recommendations: Continue POC Treatment Plan/Plan of Care Patient would benefit from OT for education, treatment and training to promote independence in ADL's, mobility, safety and/or upper extremity function for ADL's. Plan of Care: ADL Retraining, Caregiver Training, Functional Mobility, Group Exercise/Act as Ind, UE Funct Exercise/Act, UE Neuromus Re-Ed/Coord Treatment Duration: May 14, 2019 Frequency: At least 5 of 7 days/Wk (IRF) Estimated Hrs Per Day: 1.5 hours per day Agreement: Yes Rehab Potential: Good Time/GCodes Start Time: 08:00 Stop Time: 09:30 Total Time Billed (hr/min): 90 Billed Treatment Time 1 visit, ADLx3(50minutes), EXx2(25minutes), FA(15minutes) SELAM RECINOS OT May 02, 2019 11:03
--- NOTE | 2019-05-02 11:31 | Physical Therapy Daily Note ---
PT Daily Note-Current Subjective Pt. agrees to Rx. Mkes conversation but has a few incidents of skewed line of sequence and perhaps word finding issue Pain Location: No Pain Reported Mental Status Patient Orientation: Person, Place, Time, Situation Transfers SCALE: Activities may be completed with or without assistive devices. 5-Hxdtnidbwh-orehcpz completes the activity by him/herself with no assistance from a helper. 5-Set-up or Clean-up Assistance-helper sets up or cleans up; patient completes activity. [place] assists only prior to or following the activity. 4-Supervision or Touching Assistance-helper provides verbal cues and/or touching/steadying and/or contact guard assistance as patient completes activity. Assistance may be provided throughout the activity or intermittently. 3-Partial/Moderate Assistance-helper does LESS THAN HALF the effort. [place] lifts, holds or supports trunk or limbs, but provides less than half the effort. 2-Substantial/Maximal Assistance-helper does MORE THAN HALF the effort. [place] lifts or holds trunk or limbs and provides more than half the effort. 1-Uamgofszi-zoholy does ALL the effort. Patient does none of the effort to complete the activity. Or, the assistance of 2 or more helpers is required for the patient to complete the activity. If activity was not attempted, code reason: 7-Patient Refused. 9-Not Applicable-not attempted and the patient did not perform the activity before the current illness, exacerbation or injury. 10-Not Attempted due to Environmental Limitations-(lack of equipment, weather restraints, etc.). 88-Not Attempted due to Medical Conditions or Safety Concerns. Roll Left & Right (QC): 6 Sit to Lying (QC): 6 Lying to Sitting/Side of Bed(Q: 6 Sit to Stand (QC): 6 Chair/Uib-ww-Obdnj Xfer(QC): 6 Toilet Transfer (QC): 6 Gait Training Does the Patient Walk?: Yes Walk 10 feet (QC): 6 Walk 50 ft with 2 Turns(QC): 6 Walk 150 ft (QC): 6 Gait Persons Needed: 0 Gait Assistive Device: None pt. apparently up ad delfin to bathroom. No incidents of LOB. Pt does need to be guided as to where to go for therapies etc Stair Training Stair Training: Handrails/: 2 handrails #of Steps: 8 4 Steps (QC): 5 Stairs: Pattern: Reciprocal Balance Special Test Comments challenges derived from ISAAC with no LOB. Pt. stands on one leg 6-7 seconds, reaches, turns, [place] etc no LOB Exercises Supine Ex: Bridging, Ankle pumps, Quad Set, Rolling, Glut sets, Heel Slides, Short Arc Quads, Scooting, Straight leg raise, Hip abd/add Supine Reps: 20 Standing: Hip Abduction, Hamstring curls, Heel/toe raises, Marching, Mini squats Standing Reps: 15 NuStep Minutes: 10 NuStep Workload: 5 Assessment Current Status: Good Progress PT Short Term Goals Short Term Goals Time Frame: May 07, 2019 Sit to lyin Lying to sitting on side of be: 5 Sit to stand: 5 Walk 150 feet: 5 PT Satellite Specialist Goals Satellite Specialist Goals PT [facility] Goals Time Frame: May 15, 2019 Roll Left & Right (QC): 6 Sit to Lying (QC): 6 Lying-Sitting on Side/Bed(QC): 6 Sit to Stand (QC): 6 Chair/Dtl-eg-Cqpcl Xfer(QC): 6 Toilet Transfer (QC): 6 Car Transfer (QC): 6 Walk 10 feet (QC): 6 Walk 50ft with 2 Turns (QC): 6 Walk 150 ft (QC): 6 Walking 10ft on Uneven Surface: 6 1 Step (curb) (QC): 6 4 Steps (QC): 6 12 Steps (QC): 6 Picking up an Object (QC): 6 PT Plan Treatment/Plan Treatment Plan: Continue Plan of Care Treatment Plan: Bed Mobility, Education, Functional Activity Kapil, Functional Strength, Group Therapy, Gait, Safety, Therapeutic Exercise, Transfers Treatment Duration: May 15, 2019 Frequency: At least 5 of 7 days/Wk (IRF) Estimated Hrs Per Day: 1.5 hours per day Patient and/or Family Agrees t: Yes Safety Risks/Education Patient Education: Gait Training, Transfer Techniques, Steps, Correct Positioning, Disease Process, Safety Issues Teaching Recipient: Patient Teaching Methods: Demonstration, Discussion Response to Teaching: Verbalize Understanding, Return Demonstration, Reinforcement Needed Time/GCodes Time In: 1015 Time Out: 1115 Total Billed Treatment Time: 60 Total Billed Treatment 1,EX35m, NM10m,GT15m [place] SUPERVISOR FUNCTIONAL TESTING May 02, 2019 11:31
--- NOTE | 2019-05-02 11:47 | Speech Therapy Daily Note ---
Speech Daily Progress Note Subjective Date Seen by Provider: May 02, 2019 Time Seen by Provider: 00:30 Patient was resting in her recliner playing a crossword game on her tablet. Objective Patient named a series of random household items with 80% with minimal cues. Patient was then asked to id function and location of the items in the home with 20% accuracy given max verbal cues and/or repetitions. Assessment Assessment Current Status: Fair Progress Treatment Plan Continue Plan of Care Speech Short Term Goals Short Term Goals Short Term Goals 1) Patient will complete memory tasks related to her daily needs with 90% or greater with minimal cues. 2) Patient will complete safety awareness tasks related to her daily needs with 90% or greater with minimal cues. 3) Patient will complete problem solving tasks related to her daily needs with 90% or greater with minimal cues. 4) Patient will be able to complete word finding tasks related to her daily needs with 90% or greater with minimal cues. Speech Skilled Nursing Goals Senior Project Manager Goals Patient will improve cognitive-communication necessary for safety and daily living tasks with minimal assist. Speech-Plan Patient/Family Goals Patient/Family Goals: Patient plans on returning home with family support post rehab. Treatment Plan Speech Therapy Treatment Plan: Continue Plan of Care Patient is very talkative, however staying on topic is difficult. Treatment Duration: May 11, 2019 Frequency: 5 times per week Estimated Hrs Per Day: .5 hour per day Rehab Potential: Good Barriers to Learning: Patient's expressive aphasia Pt/Family Agrees to Plan: Yes Safety Risks/Education Teaching Recipient: Patient Teaching Methods: Demonstration, Discussion Response to Teaching: Verbalize Understanding, Return Demonstration Education Topics Provided: Communication of wants/needs Time Speech Therapy Time In: 11:00 Speech Therapy Time Out: 11:30 Total Billed Time: 30 Billed Treatment Time 1, COGN TEST, COGNDEVEL MIMI Granda May 02, 2019 11:47
--- NOTE | 2019-05-02 14:38 | Physical Therapy Daily Note ---
PT Daily Note-Current Subjective Pleasant and agreeable to rx. More difficulty this afternoon with speech. Pt. begins an sentence of certain subject matter and veers to many other partial subjects, making no sense, then usually laughs. Pain Location: No Pain Reported Transfers SCALE: Activities may be completed with or without assistive devices. 2-Fsqijamhgb-kynzjez completes the activity by him/herself with no assistance from a helper. 5-Set-up or Clean-up Assistance-helper sets up or cleans up; patient completes activity. [place] assists only prior to or following the activity. 4-Supervision or Touching Assistance-helper provides verbal cues and/or touching/steadying and/or contact guard assistance as patient completes activity. Assistance may be provided throughout the activity or intermittently. 3-Partial/Moderate Assistance-helper does LESS THAN HALF the effort. [place] lifts, holds or supports trunk or limbs, but provides less than half the effort. 2-Substantial/Maximal Assistance-helper does MORE THAN HALF the effort. [place] lifts or holds trunk or limbs and provides more than half the effort. 4-Nexzgnsao-gfkqgz does ALL the effort. Patient does none of the effort to complete the activity. Or, the assistance of 2 or more helpers is required for the patient to complete the activity. If activity was not attempted, code reason: 7-Patient Refused. 9-Not Applicable-not attempted and the patient did not perform the activity before the current illness, exacerbation or injury. 10-Not Attempted due to Environmental Limitations-(lack of equipment, weather restraints, etc.). 88-Not Attempted due to Medical Conditions or Safety Concerns. all TRFs mod I Gait Training no AD 150 ft x 2, 50 x1 no LOB Balance Special Test Comments side steeping left and right 15 ft, retro gait 15 ft no LOB Exercises NuStep Minutes: 10 NuStep Workload: 5 Assessment Current Status: Good Progress PT Short Term Goals Short Term Goals Time Frame: May 07, 2019 Sit to lyin Lying to sitting on side of be: 5 Sit to stand: 5 Walk 150 feet: 5 PT Fci Goals Fci Goals PT [facility]ci Goals Time Frame: May 15, 2019 Roll Left & Right (QC): 6 Sit to Lying (QC): 6 Lying-Sitting on Side/Bed(QC): 6 Sit to Stand (QC): 6 Chair/Kma-um-Ksukg Xfer(QC): 6 Toilet Transfer (QC): 6 Car Transfer (QC): 6 Walk 10 feet (QC): 6 Walk 50ft with 2 Turns (QC): 6 Walk 150 ft (QC): 6 Walking 10ft on Uneven Surface: 6 1 Step (curb) (QC): 6 4 Steps (QC): 6 12 Steps (QC): 6 Picking up an Object (QC): 6 PT Plan Treatment/Plan Treatment Plan: Continue Plan of Care Treatment Plan: Bed Mobility, Education, Functional Activity Kapil, Functional Strength, Group Therapy, Gait, Safety, Therapeutic Exercise, Transfers Treatment Duration: May 15, 2019 Frequency: At least 5 of 7 days/Wk (IRF) Estimated Hrs Per Day: 1.5 hours per day Patient and/or Family Agrees t: Yes Safety Risks/Education Patient Education: Transfer Techniques, Disease Process (educated in speech deficit and CVA etc), Safety Issues Time/GCodes Time In: 1415 Time Out: 1435 Total Billed Treatment Time: 20 Total Billed Treatment 1,EX20m M[place] HEAD BANQUET WAITER/WAITRESS May 02, 2019 14:38
[2019-05-02 18:00] VITALS: BP 130/71
--- NOTE | 2019-05-02 18:00 | NUR ---
HAS BEEN COOPERATIVE TODAY IN GETTING UP AD HEATHER TO BATHROOM ONLY AND REQUESTING HELP TO AMBULATE IN [address].
[2019-05-03 05:42] VITALS: BP 180/70
[2019-05-03 08:10] VITALS: BP 126/61
[2019-05-03] MEDS: FENOFIBRATE 134 MG (LOFIBRA) CAPSULE PO SCH (08:12)
[2019-05-03] MEDS: amLODIPine 10 MG (NORVASC) TAB PO SCH (08:13)
[2019-05-03] MEDS: lisINopril 20 MG (PRINIVIL) TABLET PO SCH (08:13)
[2019-05-03] MEDS: DOCUSATE SODIUM 100 MG (COLACE) CAP PO SCH ×2 (08:14→20:19)
[2019-05-03] MEDS: SENNA W/DOCUSATE (SENOKOT S) TABLET PO SCH ×2 (08:14→20:19)
--- NOTE | 2019-05-03 08:45 | PM&R Progress Note ---
Subjective HPI/CC On Admission Date Seen by Provider: May 03, 2019 Time Seen by Provider: 09:00 Subjective/Events-last exam Classmate of hers is visiting today Cognition does vary Set for DC on Tuesday Put orders in for speech therapy outpatient Bowels are moving Blood pressure is varied Conferred with RN Reviewed therapy notes Checked meds and labs Review of Systems General: Fatigue Neurological: Weakness, Numbness, Incoordination, Change in speech, Confusion Objective Exam Vital Signs Vital Signs Date Time Temp Pulse Resp B/P (MAP) Pulse Ox O2 Delivery O2 Flow Rate FiO2 05/05/19 10:00 36.5 56 18 125/73 97 Room Air Capillary Refill : Less Than 3 Seconds General Appearance: No Apparent Distress, WD/WN, Chronically ill, Obese HEENT: PERRL/EOMI, Normal ENT Inspection, Pharynx Normal Neck: Full Range of Motion, Normal Inspection, Non Tender, Supple Respiratory: Chest Non Tender, Lungs Clear, Normal Breath Sounds, No Accessory Muscle Use, No Respiratory Distress Cardiovascular: Regular Rate, Rhythm, No Edema, No Gallop, No JVD, No Murmur, Normal Peripheral Pulses Gastrointestinal: Normal Bowel Sounds, Non Tender, Soft Back: Normal Inspection, No CVA Tenderness, No Vertebral Tenderness Extremity: Normal Capillary Refill, Normal Inspection, Normal Range of Motion, Non Tender, No Calf Tenderness Neurologic/Psychiatric: Alert, Oriented x3, No Motor/Sensory Deficits, Normal Mood/Affect, hr systems analyst II-XII Norm as Tested, Aphasia (partial), Disoriented Skin: Normal Color, Warm/Dry Lymphatic: No Adenopathy Results/Procedures Lab Patient resulted labs reviewed. [facility]IM Transfers Therapy Code Descriptions/Definitions Functional [place] Measure: 0=Not Assessed/NA 4=Minimal Assistance 1=Total Assistance 5=Supervision or Setup 2=Maximal Assistance 6=Modified [place] 3=Moderate Assistance 7=Complete IndependenceSCALE: Activities may be completed with or without assistive devices. 3-Ifbudxjnce-bnxclvu completes the activity by him/herself with no assistance from a helper. 5-Set-up or Clean-up Assistance-helper sets up or cleans up; patient completes activity. [place] assists only prior to or following the activity. 4-Supervision or Touching Assistance-helper provides verbal cues and/or touching/steadying and/or contact guard assistance as patient completes activity. Assistance may be provided throughout the activity or intermittently. 3-Partial/Moderate Assistance-helper does LESS THAN HALF the effort. [place] lifts, holds or supports trunk or limbs, but provides less than half the effort. 2-Substantial/Maximal Assistance-helper does MORE THAN HALF the effort. [place] lifts or holds trunk or limbs and provides more than half the effort. 8-Vhqdrcmkb-cregoq does ALL the effort. Patient does none of the effort to complete the activity. Or, the assistance of 2 or more helpers is required for the patient to complete the activity. If activity was not attempted, code reason: 7-Patient Refused. 9-Not Applicable-not attempted and the patient did not perform the activity before the current illness, exacerbation or injury. 10-Not Attempted due to Environmental Limitations-(lack of equipment, weather restraints, etc.). 88-Not Attempted due to Medical Conditions or Safety Concerns. Roll Left to Right (QC): 6 Sit to Lying (QC): 6 Sit to Stand (QC): 6 Chair/Wgv-xc-Hhhyd Xfer(QC): 6 Car Transfer (QC): 4 Gait Training Does the Patient Walk?: Yes Distance: 2000' Walk 10 feet (QC): 6 Walk 50 ft with 2 Turns(QC): 6 Walk 150 ft (QC): 6 Walking 10ft/uneven surface-QC: 4 Gait Persons Needed: 0 Gait Assistive Device: None Wheelchair Training Does the Pt Use a Wheelchair?: No Stair Training Stair Training: Handrails/: 2 handrails #of Steps: 8 1 Step (curb) (QC): 4 4 Steps (QC): 5 12 Steps (QC): 88 Stairs: Pattern: Reciprocal Balance Picking up an Object (QC): 4 ADL-Treatment Eating (QC): 6 Oral Hygiene (QC): 6 (Pt stood at sink to complete oral care without assist. Pt completed other grooming tasks without assist as well.) Shower/Bathe Self (QC): 6 (Pt able to wash/dry all areas without assist. Pt completed part of bathing while seated, but did not have any LOB during standing bathing tasks.) Upper Body Dressing (QC): 6 (Pt retrieved clothing from closet without assist, no LOB noted. Pt donned bra and pullover shirt without assist.) Lower Body Dressing (QC): 6 (Pt retrieved clothing from closet. Doffed/donned underwear and pants without assist.) On/Off Footwear (QC): 6 (Pt donned socks and shoes without assist while seated EOB.) Toileting Hygiene (QC): 6 (Pt toileted x2 during session. Able to complete toileting hygiene and manipulate clothing without assist.) Toilet Transfer (QC): 6 (Transferred to toilet x2 during session using grab bar for safety.) Assessment/Plan Assessment and Plan Assess & Plan/Chief Complaint Assessment: CVA Expressive aphasia HTN HLP DM diet controlled Subtle confusion with SLUMS Plan: IRF protocol ADL independence Fall risk ST Discharge planning for Tuesday (1) Intracranial bleed (2) Insomnia (3) Diabetes mellitus (4) Expressive aphasia (5) Hyperlipemia (6) Hypertension (7) History of TIA (transient ischemic attack) CONY COLLINS DO May 03, 2019 08:45
--- NOTE | 2019-05-03 08:53 | Occupational Ther Daily Note ---
OT Current Status-Daily Note Subjective Pt alert, lying in bed. Pt agrees to therapy. Son present in room. Mental Status/Objective Patient Orientation: Person, Place, Non-Verbal/Aphasic (aphasic), Time, Situation ADL-Treatment Pt agrees to shower. Pt up in room without AD for ambulation. Pt able to retrieve clothing and set up own shower. Pt complete shower using equipment when needed, will stand up in shower using grabbars. Pt completed dressing using grabbar to stand and don/doff pants. Pt completed toilet transfer and toilet hygiene with grabbar. Pt stood at sink to complete grooming and oral care. Pt able to set own meal up and use regular utensils. Therapy Code Descriptions/Definitions Functional [place] Measure: 0=Not Assessed/NA 4=Minimal Assistance 1=Total Assistance 5=Supervision or Setup 2=Maximal Assistance 6=Modified [place] 3=Moderate Assistance 7=Complete IndependenceSCALE: Activities may be completed with or without assistive devices. 1-Asaycqzfey-lwdqdoa completes the activity by him/herself with no assistance from a helper. 5-Set-up or Clean-up Assistance-helper sets up or cleans up; patient completes activity. [place] assists only prior to or following the activity. 4-Supervision or Touching Assistance-helper provides verbal cues and/or touching/steadying and/or contact guard assistance as patient completes activity. Assistance may be provided throughout the activity or intermittently. 3-Partial/Moderate Assistance-helper does LESS THAN HALF the effort. [place] lifts, holds or supports trunk or limbs, but provides less than half the effort. 2-Substantial/Maximal Assistance-helper does MORE THAN HALF the effort. [place] lifts or holds trunk or limbs and provides more than half the effort. 7-Wbnglspno-sznani does ALL the effort. Patient does none of the effort to complete the activity. Or, the assistance of 2 or more helpers is required for the patient to complete the activity. If activity was not attempted, code reason: 7-Patient Refused. 9-Not Applicable-not attempted and the patient did not perform the activity before the current illness, exacerbation or injury. 10-Not Attempted due to Environmental Limitations-(lack of equipment, weather restraints, etc.). 88-Not Attempted due to Medical Conditions or Safety Concerns. Eating (QC): 6 Oral Hygiene (QC): 6 Shower/Bathe Self (QC): 6 Upper Body Dressing (QC): 6 Lower Body Dressing (QC): 6 On/Off Footwear: 6 Toileting Hygiene (QC): 6 Toilet Transfer (QC): 6 Pt has a tendency to forget where items are then will go find them then bring b ack to place to use. Pt has difficulty with word finding and requires verbal cues to stay on topic. Other Treatment Pt ambulated to therapy gym to complete arm bike for 15 min at 25 cloud resistance without breaks to increase strength and activity tolerance for daily functional tasks. Went over home safety education and pt had difficulties verbalizing and problem solving items needed for safety in bathroom. Pt stated that she never uses them so does not know what they are. After therapy, pt sitting in recliner with call light/phone in reach. All needs met in room. OT Short Term Goals Short Term Goals Time Frame: Apr 30, 2019 Shower/bathe self: 4 Upper body dressin Lower body dressin OT Fpc Goals Fpc Goals Time Frame: May 14, 2019 Eating (QC): 6 (met-05/03/2019) Oral Hygiene (QC): 6 (met-05/03/2019) Toileting Hygiene (QC): 6 (met-05/03/2019) Shower/Bathe Self (QC): 6 (met-05/03/2019) Upper Body Dressing (QC): 6 (met-05/03/2019) Lower Body Dressing (QC): 6 (met-05/03/2019) On/Off Footwear (QC): 6 (met-05/03/2019) Additional Goals: 1-Demonstrate ADL Tasks, 2-Verbalize Understanding, 3- ImproveStrength/Kapil 1=Demonstrate adherence to instructed precautions during ADL tasks. 2=Patient will verbalize/demonstrate understanding of assistive devices/modifications for ADL. 3=Patient will improve strength/tolerance for activity to enable patient to perform ADL's. OT Education/Plan Problem List/Assessment Assessment: Decreased Safety Aware Discharge Recommendations Plan/Recommendations: Continue POC Treatment Plan/Plan of Care Patient would benefit from OT for education, treatment and training to promote independence in ADL's, mobility, safety and/or upper extremity function for ADL's. Plan of Care: ADL Retraining, Caregiver Training, Functional Mobility, Group Exercise/Act as Ind, UE Funct Exercise/Act, UE Neuromus Re-Ed/Coord Treatment Duration: May 14, 2019 Frequency: At least 5 of 7 days/Wk (IRF) Estimated Hrs Per Day: 1.5 hours per day Agreement: Yes Rehab Potential: Good Time/GCodes Start Time: 07:15 Stop Time: 08:30 Total Time Billed (hr/min): 75 Billed Treatment Time 1 visit-ADL 4 (60 min) EX 1 (15 min) JANET COATES May 03, 2019 08:53
[2019-05-03] MEDS ORDERED: AMLO10TA7 PO (09:01)
[2019-05-03] MEDS: POLYETHYLENE GLYCOL 17 GM (MIRALAX) PACK PO SCH ×2 (09:05→19:33)
--- NOTE | 2019-05-03 11:53 | Physical Therapy Daily Note ---
PT Daily Note-Current Subjective Patient in recliner pre tx, agrees to PT, has no complaints of pain at rest. Appearance Patient in recliner post tx with nurse call, phone, tray, all needs met. Mental Status Patient Orientation: Person Transfers SCALE: Activities may be completed with or without assistive devices. 3-Tamesqnotv-abwbbvb completes the activity by him/herself with no assistance from a helper. 5-Set-up or Clean-up Assistance-helper sets up or cleans up; patient completes activity. [place] assists only prior to or following the activity. 4-Supervision or Touching Assistance-helper provides verbal cues and/or touching/steadying and/or contact guard assistance as patient completes activity. Assistance may be provided throughout the activity or intermittently. 3-Partial/Moderate Assistance-helper does LESS THAN HALF the effort. [place] lifts, holds or supports trunk or limbs, but provides less than half the effort. 2-Substantial/Maximal Assistance-helper does MORE THAN HALF the effort. [place] lifts or holds trunk or limbs and provides more than half the effort. 0-Kipofpxbl-gjjdzt does ALL the effort. Patient does none of the effort to complete the activity. Or, the assistance of 2 or more helpers is required for the patient to complete the activity. If activity was not attempted, code reason: 7-Patient Refused. 9-Not Applicable-not attempted and the patient did not perform the activity before the current illness, exacerbation or injury. 10-Not Attempted due to Environmental Limitations-(lack of equipment, weather restraints, etc.). 88-Not Attempted due to Medical Conditions or Safety Concerns. Sit to Stand (QC): 6 Chair/Ypl-pd-Rjgzf Xfer(QC): 6 Gait Training Distance: 1000', 150' Walk 10 feet (QC): 4 Walk 50 ft with 2 Turns(QC): 4 Walk 150 ft (QC): 4 Gait Assistive Device: None SBA, no unsteadiness this morning but does need cues for direction Exercises Standing: Hip Abduction, Heel/toe raises, Mini squats, Step-ups Standing Reps: 15 LAQ alternating for 5 min with 2# ankle weights NuStep Minutes: 15 NuStep Workload: 5 Treatments ambulation, transfers, LE strengthening Assessment Current Status: Fair Progress no unsteadiness with ambulation, occasional rest breaks due to fatigue PT Short Term Goals Short Term Goals Time Frame: May 07, 2019 Sit to lyin Lying to sitting on side of be: 5 Sit to stand: 5 Walk 150 feet: 5 PT Assisted Goals Consumer Electronics Merchandiser Goals PT Consumer Electronics Merchandiser Goals Time Frame: May 15, 2019 Roll Left & Right (QC): 6 Sit to Lying (QC): 6 Lying-Sitting on Side/Bed(QC): 6 Sit to Stand (QC): 6 Chair/Fqv-md-Cnckm Xfer(QC): 6 Toilet Transfer (QC): 6 Car Transfer (QC): 6 Walk 10 feet (QC): 6 Walk 50ft with 2 Turns (QC): 6 Walk 150 ft (QC): 6 Walking 10ft on Uneven Surface: 6 1 Step (curb) (QC): 6 4 Steps (QC): 6 12 Steps (QC): 6 Picking up an Object (QC): 6 PT Plan Problem List Problem List: Activity Tolerance, Functional Strength, Safety, Balance, Gait, Transfer Treatment/Plan Treatment Plan: Continue Plan of Care Treatment Plan: Bed Mobility, Education, Functional Activity Kapil, Functional Strength, Group Therapy, Gait, Safety, Therapeutic Exercise, Transfers Treatment Duration: May 15, 2019 Frequency: At least 5 of 7 days/Wk (IRF) Estimated Hrs Per Day: 1.5 hours per day Patient and/or Family Agrees t: Yes Safety Risks/Education Patient Education: Gait Training, Transfer Techniques, Correct Positioning, Safety Issues Teaching Recipient: Patient Teaching Methods: Demonstration, Discussion Response to Teaching: Reinforcement Needed Time/GCodes Time In: 1100 Time Out: 1200 Total Billed Treatment Time: 60 Total Billed Treatment 1 visit GT 20' FA 10' EX 30' ROSHAN ZHANG PT May 03, 2019 11:53
--- NOTE | 2019-05-03 13:14 | Physical Therapy Daily Note ---
PT Daily Note-Current Subjective Patient in restroom pre tx, agrees to PT after she gets out, has no complaints of pain. Appearance Patient in room post tx, she is independent in her room. Mental Status Patient Orientation: Person, Place Transfers SCALE: Activities may be completed with or without assistive devices. 7-Jvtyhwtvzk-geurkgz completes the activity by him/herself with no assistance from a helper. 5-Set-up or Clean-up Assistance-helper sets up or cleans up; patient completes activity. [place] assists only prior to or following the activity. 4-Supervision or Touching Assistance-helper provides verbal cues and/or touching/steadying and/or contact guard assistance as patient completes activity. Assistance may be provided throughout the activity or intermittently. 3-Partial/Moderate Assistance-helper does LESS THAN HALF the effort. [place] lifts, holds or supports trunk or limbs, but provides less than half the effort. 2-Substantial/Maximal Assistance-helper does MORE THAN HALF the effort. [place] lifts or holds trunk or limbs and provides more than half the effort. 4-Vsnjqlirl-redjpf does ALL the effort. Patient does none of the effort to complete the activity. Or, the assistance of 2 or more helpers is required for the patient to complete the activity. If activity was not attempted, code reason: 7-Patient Refused. 9-Not Applicable-not attempted and the patient did not perform the activity before the current illness, exacerbation or injury. 10-Not Attempted due to Environmental Limitations-(lack of equipment, weather restraints, etc.). 88-Not Attempted due to Medical Conditions or Safety Concerns. Chair/Ivv-xw-Syabz Xfer(QC): 6 Gait Training Distance: 500' Walk 10 feet (QC): 6 Walk 50 ft with 2 Turns(QC): 6 Walk 150 ft (QC): 6 Gait Assistive Device: None steady ambulation, no cues for direction needed this afternoon. Stair Training Stair Training: Handrails/: 1 handrail #of Steps: 12 1 Step (curb) (QC): 4 4 Steps (QC): 4 SBA Treatments stair training, ambulation Assessment Current Status: Fair Progress improved stairs PT Short Term Goals Short Term Goals Time Frame: May 07, 2019 Sit to lyin Lying to sitting on side of be: 5 Sit to stand: 5 Walk 150 feet: 5 PT Laborer Electroplating Goals Laborer Electroplating Goals PT Laborer Electroplating Goals Time Frame: May 15, 2019 Roll Left & Right (QC): 6 Sit to Lying (QC): 6 Lying-Sitting on Side/Bed(QC): 6 Sit to Stand (QC): 6 Chair/Sop-qh-Qfrra Xfer(QC): 6 Toilet Transfer (QC): 6 Car Transfer (QC): 6 Walk 10 feet (QC): 6 Walk 50ft with 2 Turns (QC): 6 Walk 150 ft (QC): 6 Walking 10ft on Uneven Surface: 6 1 Step (curb) (QC): 6 4 Steps (QC): 6 12 Steps (QC): 6 Picking up an Object (QC): 6 PT Plan Problem List Problem List: Activity Tolerance, Functional Strength, Safety, Balance, Gait, Transfer, Bed Mobility Treatment/Plan Treatment Plan: Continue Plan of Care Treatment Plan: Bed Mobility, Education, Functional Activity Kapil, Functional Strength, Group Therapy, Gait, Safety, Therapeutic Exercise, Transfers Treatment Duration: May 15, 2019 Frequency: At least 5 of 7 days/Wk (IRF) Estimated Hrs Per Day: 1.5 hours per day Patient and/or Family Agrees t: Yes Safety Risks/Education Patient Education: Gait Training, Transfer Techniques, Steps, Correct Positioning, Safety Issues Teaching Recipient: Patient Teaching Methods: Demonstration, Discussion Response to Teaching: Reinforcement Needed Time/GCodes Time In: 1255 Time Out: 1310 Total Billed Treatment Time: 15 Total Billed Treatment 1 visit FA 15ROSHAN BARNETT PT May 03, 2019 13:14
--- NOTE | 2019-05-03 13:14 | Speech Therapy Daily Note ---
Speech Daily Progress Note Subjective Date Seen by Provider: May 03, 2019 Time Seen by Provider: 09:15 Patient was alert and cooperative for all therapy tasks. Patient had a visitor upon arrival and sat upright in her chair for the duration of therapy tasks. Objective Patient completed word finding tasks of naming household and common items with 85% accuracy and identified function of objects with 20% accuracy with moderate verbal and visual cues. Assessment Assessment Current Status: Good Progress Treatment Plan Continue Plan of Care Speech Short Term Goals Short Term Goals Short Term Goals 1) Patient will complete memory tasks related to her daily needs with 90% or greater with minimal cues. 2) Patient will complete safety awareness tasks related to her daily needs with 90% or greater with minimal cues. 3) Patient will complete problem solving tasks related to her daily needs with 90% or greater with minimal cues. 4) Patient will be able to complete word finding tasks related to her daily needs with 90% or greater with minimal cues. Speech Director Consumer Affairs Goals [facility] Goals Patient will improve cognitive-communication necessary for safety and daily living tasks with minimal assist. Speech-Plan Patient/Family Goals Patient/Family Goals: Patient will return to most appropriate living arrangement as determined by the rehab team. Treatment Plan Speech Therapy Treatment Plan: Continue Plan of Care Patient will continue to receive skilled ST to improve cognitive function. Treatment Duration: May 04, 2019 Frequency: 5 times per week Estimated Hrs Per Day: .5 hour per day Rehab Potential: Good Barriers to Learning: Patient experienced a CVA Pt/Family Agrees to Plan: Yes Safety Risks/Education Teaching Recipient: Patient Teaching Methods: Demonstration, Discussion Response to Teaching: Verbalize Understanding, Reinforcement Needed Education Topics Provided: Patient was provided education on safety awareness upon returning home. Time Speech Therapy Time In: 09:15 Speech Therapy Time Out: 10:00 Total Billed Time: 45 Billed Treatment Time 1. MIMI BONILLA May 03, 2019 13:14
--- NOTE | 2019-05-03 13:54 | NUR ---
Pt is Buddhist. Cloth Colorer provided prayer and communion.
--- NOTE | 2019-05-03 14:45 | NUR ---
SS/CM WEEKLY TEAM CONFERENCE Reviewed team summary with daughter Sharona Jean and later with patient. Patient/family are in agreement to continued stay until planned release 05/05/19. Patient will be going to the home of her son Maxime Canela and his . OP ST: Patient will go to outpatient speech therapy, first appointment has been made with [facility] for 05/08/19 at 1245. Updated patient and discharge instructions re same. Per Sharona, there are multiple family members, grandchildren, who ebb and flow with their schedules and who will participate in oversight of patient. Patient was very talkative, she desires to return to her home as soon as possible and seems open to having a paid caregiver a few hours as needed. She has a puddler helper but does know of individuals who could assist in other ways if needed. Patient has resided in her home 53 years and does not want to leave what she is familiar with. Cognition remains impaired, tangential speech noted. Per Sharona, the family will not allow patient to drive because of obvious concerns for safety of self and others. Discharge is finalized unless situation warrants a revisit.
[2019-05-03 15:57] VITALS: BP 127/74
[2019-05-03] MEDS: MELATONIN 3 MG TABLET PO PRN (20:19)
[2019-05-04 05:31] VITALS: BP 135/70
[2019-05-04] MEDS: DOCUSATE SODIUM 100 MG (COLACE) CAP PO SCH ×2 (08:14→20:37)
[2019-05-04] MEDS: FENOFIBRATE 134 MG (LOFIBRA) CAPSULE PO SCH (08:14)
[2019-05-04] MEDS: SENNA W/DOCUSATE (SENOKOT S) TABLET PO SCH ×2 (08:14→20:37)
[2019-05-04] MEDS: lisINopril 20 MG (PRINIVIL) TABLET PO SCH (08:14)
[2019-05-04] MEDS: amLODIPine 10 MG (NORVASC) TAB PO SCH (08:15)
[2019-05-04] MEDS: POLYETHYLENE GLYCOL 17 GM (MIRALAX) PACK PO SCH ×2 (09:00→20:42)
--- NOTE | 2019-05-04 09:17 | PM&R Progress Note ---
Subjective HPI/CC On Admission Date Seen by Provider: May 04, 2019 Time Seen by Provider: 09:00 Subjective/Events-last exam Plan for discharge tomorrow. Feels pretty good about that. Cognitive deficit is noted. She will continue speech therapy as an outpatient. Ambulating well. Will go home with her son. Conferred with RN Reviewed therapy notes Checked meds and labs Review of Systems Neurological: Change in speech, Confusion Objective Exam Vital Signs Vital Signs Date Time Temp Pulse Resp B/P (MAP) Pulse Ox O2 Delivery O2 Flow Rate FiO2 05/05/19 10:00 36.5 56 18 125/73 97 Room Air Capillary Refill : Less Than 3 Seconds General Appearance: No Apparent Distress, WD/WN, Chronically ill, Obese HEENT: PERRL/EOMI, Normal ENT Inspection, Pharynx Normal Neck: Full Range of Motion, Normal Inspection, Non Tender, Supple Respiratory: Chest Non Tender, Lungs Clear, Normal Breath Sounds, No Accessory Muscle Use, No Respiratory Distress Cardiovascular: Regular Rate, Rhythm, No Edema, No Gallop, No JVD, No Murmur, Normal Peripheral Pulses Gastrointestinal: Normal Bowel Sounds, Non Tender, Soft Back: Normal Inspection, No CVA Tenderness, No Vertebral Tenderness Extremity: Normal Capillary Refill, Normal Inspection, Normal Range of Motion, Non Tender, No Calf Tenderness Neurologic/Psychiatric: Alert, Oriented x3, No Motor/Sensory Deficits, Normal Mood/Affect, 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 FIM Transfers Therapy Code Descriptions/Definitions Functional [place] Measure: 0=Not Assessed/NA 4=Minimal Assistance 1=Total Assistance 5=Supervision or Setup 2=Maximal Assistance 6=Modified [place] 3=Moderate Assistance 7=Complete IndependenceSCALE: Activities may be completed with or without assistive devices. 9-Xgyqdlpxfj-cndmyhc completes the activity by him/herself with no assistance from a helper. 5-Set-up or Clean-up Assistance-helper sets up or cleans up; patient completes activity. [place] assists only prior to or following the activity. 4-Supervision or Touching Assistance-helper provides verbal cues and/or touching/steadying and/or contact guard assistance as patient completes activity. Assistance may be provided throughout the activity or intermittently. 3-Partial/Moderate Assistance-helper does LESS THAN HALF the effort. [place] lifts, holds or supports trunk or limbs, but provides less than half the effort. 2-Substantial/Maximal Assistance-helper does MORE THAN HALF the effort. [place] lifts or holds trunk or limbs and provides more than half the effort. 9-Muwftznjd-bynbcp does ALL the effort. Patient does none of the effort to complete the activity. Or, the assistance of 2 or more helpers is required for the patient to complete the activity. If activity was not attempted, code reason: 7-Patient Refused. 9-Not Applicable-not attempted and the patient did not perform the activity before the current illness, exacerbation or injury. 10-Not Attempted due to Environmental Limitations-(lack of equipment, weather restraints, etc.). 88-Not Attempted due to Medical Conditions or Safety Concerns. Roll Left to Right (QC): 6 Sit to Lying (QC): 6 Sit to Stand (QC): 6 Chair/Btn-qw-Zsczd Xfer(QC): 6 Car Transfer (QC): 4 Gait Training Does the Patient Walk?: Yes Distance: 500' Walk 10 feet (QC): 6 Walk 50 ft with 2 Turns(QC): 6 Walk 150 ft (QC): 6 Walking 10ft/uneven surface-QC: 4 Gait Persons Needed: 0 Gait Assistive Device: None Wheelchair Training Does the Pt Use a Wheelchair?: No Stair Training Stair Training: Handrails/: 1 handrail #of Steps: 12 1 Step (curb) (QC): 4 4 Steps (QC): 4 12 Steps (QC): 88 Stairs: Pattern: Reciprocal Balance Picking up an Object (QC): 4 ADL-Treatment Eating (QC): 6 Oral Hygiene (QC): 6 Shower/Bathe Self (QC): 6 Upper Body Dressing (QC): 6 Lower Body Dressing (QC): 6 On/Off Footwear (QC): 6 Toileting Hygiene (QC): 6 Toilet Transfer (QC): 6 Assessment/Plan Assessment and Plan Assess & Plan/Chief Complaint Assessment: CVA Expressive aphasia HTN HLP DM diet controlled Subtle confusion with SLUMS Plan: IRF protocol ADL independence Fall risk ST Discharge home tomorrow with son (1) Intracranial bleed (2) Insomnia (3) Diabetes mellitus (4) Expressive aphasia (5) Hyperlipemia (6) Hypertension (7) History of TIA (transient ischemic attack) CONY COLLINS DO May 04, 2019 09:16
[2019-05-04] MEDS ORDERED: AMLO10TA7 PO (10:09)
[2019-05-04] MEDS ORDERED: MOEX15TA PO (10:09)
--- NOTE | 2019-05-04 10:22 | Occupational Ther Daily Note ---
OT Current Status-Daily Note Subjective Pt alert, sitting in recliner. Pt agrees to therapy. No c/o pain at this time. Pt's son in room. Mental Status/Objective Patient Orientation: Person, Place, Time, Situation ADL-Treatment Pt completes own meal set up and uses regular utensils to eat. Pt completed toileting independently no AD. Pt retrieved own clothing and transported to bathroom. Pt completed shower using shower bench, hand held shower and grabbars independently. Pt completed dressing independently. Stood at sink to complete oral care, independently. Pt took cup and was able to walk to kitchen, fill cup up with ice and bring back to room without any LOB. After therapy, pt sitting in recliner with call light/phone in reach. All needs met in room. Therapy Code Descriptions/Definitions Functional [place] Measure: 0=Not Assessed/NA 4=Minimal Assistance 1=Total Assistance 5=Supervision or Setup 2=Maximal Assistance 6=Modified [place] 3=Moderate Assistance 7=Complete IndependenceSCALE: Activities may be completed with or without assistive devices. 6-Opfrtnvdki-jwvcnis completes the activity by him/herself with no assistance from a helper. 5-Set-up or Clean-up Assistance-helper sets up or cleans up; patient completes activity. [place] assists only prior to or following the activity. 4-Supervision or Touching Assistance-helper provides verbal cues and/or touching/steadying and/or contact guard assistance as patient completes ac tivity. Assistance may be provided throughout the activity or intermittently. 3-Partial/Moderate Assistance-helper does LESS THAN HALF the effort. [place] lifts, holds or supports trunk or limbs, but provides less than half the effort. 2-Substantial/Maximal Assistance-helper does MORE THAN HALF the effort. [place] lifts or holds trunk or limbs and provides more than half the effort. 8-Gtgebxwwu-rrupwc does ALL the effort. Patient does none of the effort to complete the activity. Or, the assistance of 2 or more helpers is required for the patient to complete the activity. If activity was not attempted, code reason: 7-Patient Refused. 9-Not Applicable-not attempted and the patient did not perform the activity before the current illness, exacerbation or injury. 10-Not Attempted due to Environmental Limitations-(lack of equipment, weather restraints, etc.). 88-Not Attempted due to Medical Conditions or Safety Concerns. Eating (QC): 6 Oral Hygiene (QC): 6 Shower/Bathe Self (QC): 6 Upper Body Dressing (QC): 6 Lower Body Dressing (QC): 6 On/Off Footwear: 6 Toileting Hygiene (QC): 6 Toilet Transfer (QC): 6 OT Short Term Goals Short Term Goals Time Frame: Apr 30, 2019 Shower/bathe self: 4 Upper body dressin Lower body dressin OT Swatch Clerk Goals Assisted Goals Time Frame: May 14, 2019 Eating (QC): 6 (met-05/03/2019) Oral Hygiene (QC): 6 (met-05/03/2019) Toileting Hygiene (QC): 6 (met-05/03/2019) Shower/Bathe Self (QC): 6 (met-05/03/2019) Upper Body Dressing (QC): 6 (met-05/03/2019) Lower Body Dressing (QC): 6 (met-05/03/2019) On/Off Footwear (QC): 6 (met-05/03/2019) Additional Goals: 1-Demonstrate ADL Tasks, 2-Verbalize Understanding, 3-Improv eStrength/Kapil 1=Demonstrate adherence to instructed precautions during ADL tasks. 2=Patient will verbalize/demonstrate understanding of assistive devices/modifications for ADL. 3=Patient will improve strength/tolerance for activity to enable patient to p erform ADL's. OT Education/Plan Problem List/Assessment Assessment: Decreased Safety Aware Discharge Recommendations Plan/Recommendations: Continue POC Therapy Discharge Recommendati: Home & Family Treatment Plan/Plan of Care Patient would benefit from OT for education, treatment and training to promote independence in ADL's, mobility, safety and/or upper extremity function for ADL's. Plan of Care: ADL Retraining, Caregiver Training, Functional Mobility, Group Exercise/Act as Ind, UE Funct Exercise/Act, UE Neuromus Re-Ed/Coord Treatment Duration: May 14, 2019 Frequency: At least 5 of 7 days/Wk (IRF) Estimated Hrs Per Day: 1.5 hours per day Agreement: Yes Rehab Potential: Good Time/GCodes Start Time: 07:15 Stop Time: 08:30 Total Time Billed (hr/min): 75 Billed Treatment Time 1 visit-ADL 5 (75 min) JANET COATES May 04, 2019 10:22
--- NOTE | 2019-05-04 10:23 | Physical Therapy Daily Note ---
PT Daily Note-Current Subjective Pt. agrees to Rx, so very pleasant but continues with communication difficulty. Pts. sentences and subject matter is fractured and incomplete. Pain Location: No Pain Reported Mental Status Patient Orientation: Person, Place (" I dont really know the name of this building"), Time (its 10ish"), Situation (" i guess I bleed") Transfers SCALE: Activities may be completed with or without assistive devices. 7-Ddbdelvpri-xypjohb completes the activity by him/herself with no assistance from a helper. 5-Set-up or Clean-up Assistance-helper sets up or cleans up; patient completes activity. [place] assists only prior to or following the activity. 4-Supervision or Touching Assistance-helper provides verbal cues and/or touching/steadying and/or contact guard assistance as patient completes activity. Assistance may be provided throughout the activity or intermittently. 3-Partial/Moderate Assistance-helper does LESS THAN HALF the effort. [place] lifts, holds or supports trunk or limbs, but provides less than half the effort. 2-Substantial/Maximal Assistance-helper does MORE THAN HALF the effort. [place] lifts or holds trunk or limbs and provides more than half the effort. 1-Kjnwhnwmd-kutuxa does ALL the effort. Patient does none of the effort to complete the activity. Or, the assistance of 2 or more helpers is required for the patient to complete the activity. If activity was not attempted, code reason: 7-Patient Refused. 9-Not Applicable-not attempted and the patient did not perform the activity before the current illness, exacerbation or injury. 10-Not Attempted due to Environmental Limitations-(lack of equipment, weather restraints, etc.). 88-Not Attempted due to Medical Conditions or Safety Concerns. Roll Left & Right (QC): 6 Sit to Lying (QC): 6 Lying to Sitting/Side of Bed(Q: 6 Sit to Stand (QC): 6 Chair/Gyu-ew-Hfnfp Xfer(QC): 6 Toilet Transfer (QC): 6 Car Transfer (QC): 6 Gait Training Does the Patient Walk?: Yes Walk 10 feet (QC): 6 Walk 50 ft with 2 Turns(QC): 6 Walk 150 ft (QC): 6 Walking 10ft/uneven surface-QC: 6 Gait Persons Needed: 0 Gait Assistive Device: None up ad delfin about her room, needs directed when outside of room in hallways etc Stair Training Stair Training: Handrails/: 2 handrails #of Steps: 12 1 Step (curb) (QC): 6 4 Steps (QC): 6 12 Steps (QC): 6 Stairs: Pattern: Reciprocal Balance Picking up an Object (QC): 6 Exercises Supine Ex: Bridging, Ankle pumps, Quad Set, Rolling, Glut sets, Heel Slides, Short Arc Quads, Scooting, Straight leg raise, Hip abd/add Supine Reps: 20 Standing: Hip Abduction, Heel/toe raises, Mini squats Standing Reps: 10 NuStep Minutes: 12 NuStep Workload: 6 Neuromuscular no juan LOB with challenges derived from ISAAC Assessment Current Status: Good Progress PT Short Term Goals Short Term Goals Time Frame: May 07, 2019 Sit to lyin Lying to sitting on side of be: 5 Sit to stand: 5 Walk 150 feet: 5 PT Motorman/Woman Goals Motorman/Woman Goals PT Motorman/Woman Goals Time Frame: May 15, 2019 Roll Left & Right (QC): 6 Sit to Lying (QC): 6 Lying-Sitting on Side/Bed(QC): 6 Sit to Stand (QC): 6 Chair/Phz-kn-Flxto Xfer(QC): 6 Toilet Transfer (QC): 6 Car Transfer (QC): 6 Walk 10 feet (QC): 6 Walk 50ft with 2 Turns (QC): 6 Walk 150 ft (QC): 6 Walking 10ft on Uneven Surface: 6 1 Step (curb) (QC): 6 4 Steps (QC): 6 12 Steps (QC): 6 Picking up an Object (QC): 6 PT Plan Treatment/Plan Treatment Plan: Continue Plan of Care Treatment Plan: Bed Mobility, Education, Functional Activity Kapil, Functional Strength, Group Therapy, Gait, Safety, Therapeutic Exercise, Transfers Treatment Duration: May 15, 2019 Frequency: At least 5 of 7 days/Wk (IRF) Estimated Hrs Per Day: 1.5 hours per day Patient and/or Family Agrees t: Yes Safety Risks/Education Patient Education: Gait Training, Transfer Techniques, Steps, Disease Process (reviewed hemorrhagic CVA definition etc), Safety Issues Teaching Recipient: Patient Time/GCodes Time In: 915 Time Out: 1030 Total Billed Treatment Time: 75 Total Billed Treatment 1,EX30m,GT20m,FA25m [place] PROFESSIONAL ATHLETES COACH May 04, 2019 10:23
--- NOTE | 2019-05-04 13:30 | NUR ---
CM/SS CONCURRENT NOTE/DISCHARGE Plan continues for discharge home tomorrow with son Maxime. IMM2 presented, signed, charted. Daughter Sharona here this a.m., repairer typewriter confirmed with her that all family members understand patient should not be left alone. She presents as convincing at times, but overall remains at risk for task safety and interruption of ideas. Sharona said that a family schedule has been completed so that everyone knows when they are responsible to be with her. OP ST already set up as earlier noted.
--- NOTE | 2019-05-04 14:54 | Speech Therapy Daily Note ---
Speech Daily Progress Note Subjective Date Seen by Provider: May 04, 2019 Time Seen by Provider: 10:30 Patient was pleasant and cooperative for all therapy tasks. Patient was sitting in her chair for all therapy tasks. Additionally, patient reported that she is excited to be returning home tomorrow. Objective Patient completed word finding tasks with 80% accuracy with minimal cues. Patient completed memory and problem-solving tasks with 75% accuracy with minimal cues. Assessment Assessment Current Status: Good Progress Treatment Plan Discontinue ST Speech Short Term Goals Short Term Goals Short Term Goals 1) Patient will complete memory tasks related to her daily needs with 90% or greater with minimal cues. 2) Patient will complete safety awareness tasks related to her daily needs with 90% or greater with minimal cues. 3) Patient will complete problem solving tasks related to her daily needs with 90% or greater with minimal cues. 4) Patient will be able to complete word finding tasks related to her daily needs with 90% or greater with minimal cues. Speech Solder Cream Maker Goals Prison Goals Patient will improve cognitive-communication necessary for safety and daily dieudonne ng tasks with minimal assist. Speech-Plan Patient/Family Goals Patient/Family Goals: Patient will return home tomorrow 05/05. Treatment Plan Speech Therapy Treatment Plan: Discontinue ST Patient has made good progress; however, has not met all ST goals. Patient is scheduled for an outpatient evaluation next week to continue skilled ST therapy. Treatment Duration: May 04, 2019 Frequency: 5 times per week Estimated Hrs Per Day: .5 hour per day Rehab Potential: Good Barriers to Learning: CVA Pt/Family Agrees to Plan: Yes Safety Risks/Education Teaching Recipient: Patient Teaching Methods: Demonstration, Discussion Response to Teaching: Return Demonstration Education Topics Provided: Patient is returning home tomorrow 05/05 and aware of arrangments set in place. Time Speech Therapy Time In: 10:30 Speech Therapy Time Out: 11:15 Total Billed Time: 45 Billed Treatment Time 1. SLTS No QUALITY CODES EXPRESSION OF IDEAS/WANTS: 3 UNDERSTANDING VERBAL CONTENT: 3 BRIEF INTERVIEW OF MENTAL STATUS:YES REPETITION OF 3 WORDS: 2 TEMPORAL ORIENTATION OF YEAR: CORRECT, MONTH: CORRECT, DAY: CORRECT RECALL OF SOCK: CORRECT, COLOR:CORRECT, BED: CORRECT MEMORY/RECALL ABILITY OF SEASON, ROOM NUMBER, AND THAT SHE IS IN THE HOSPITAL. MIMI BARNES May 04, 2019 14:54
[2019-05-04 17:33] VITALS: BP 137/72
[2019-05-04] MEDS: MELATONIN 3 MG TABLET PO PRN (20:37)
[2019-05-04] MEDS: ACETAMINOPHEN 500 MG TAB (TYLENOL) PO PRN (20:46)
[2019-05-04] MEDS ORDERED: amLODIPine 10 MG (NORVASC) TAB PO SCH (21:00)
[2019-05-04] MEDS ORDERED: lisINopril 20 MG (PRINIVIL) TABLET PO SCH (21:00)
[2019-05-05 06:26] VITALS: BP 135/71
[2019-05-05 08:32] VITALS: BP 125/73
[2019-05-05] MEDS: FENOFIBRATE 134 MG (LOFIBRA) CAPSULE PO SCH (08:34)
[2019-05-05] MEDS: POLYETHYLENE GLYCOL 17 GM (MIRALAX) PACK PO SCH (09:00)
[2019-05-05] MEDS ORDERED: amLODIPine 10 MG (NORVASC) TAB PO NR (09:00)
[2019-05-05] MEDS: DOCUSATE SODIUM 100 MG (COLACE) CAP PO SCH (09:00)
[2019-05-05] MEDS: SENNA W/DOCUSATE (SENOKOT S) TABLET PO SCH (09:00)
[2019-05-05 10:00] VITALS: BP 125/73
--- NOTE | 2019-05-05 10:59 | Discharge Summary ---
Diagnosis/Chief Complaint Date of Admission Apr 30, 2019 at 14:40 Date of Discharge Discharge Date: May 05, 2019 Discharge Diagnosis Assessment: CVA Expressive aphasia HTN HLP DM diet controlled Subtle confusion with SLUMS Plan: IRF protocol ADL independence Fall risk ST Discharge home (1) Intracranial bleed (2) Insomnia (3) Diabetes mellitus (4) Expressive aphasia (5) Hyperlipemia (6) Hypertension (7) History of TIA (transient ischemic attack) Discharge Summary Discharge Physical Examination Allergies: Uncoded Allergies: ERTHROMYCIN (Allergy, Unknown, 05/08/12) Vitals & I&Os Vital Signs Date Time Temp Pulse Resp B/P (MAP) Pulse Ox O2 Delivery O2 Flow Rate FiO2 05/05/19 10:00 36.5 56 18 125/73 97 Room Air General Appearance: Alert, Oriented X3, Cooperative Respiratory: Clear to Auscultation Cardiovascular: Regular Rate Neuro: Normal Gait, Strength at 5/5 X4 Ext, Other (expressive aphasia noted) Hospital Course Was the Problem List Reviewed?: Yes Hospital course: Patient had an uneventful hospital course for nearly 7 days in inpatient rehabilitation after suffering a intracranial bleed with subsequent hematoma and cognitive deficits with expressive aphasia deficits. Patient was able to participate in all therapies including speech therapy aggressively in order to regain function and was able to regain enough independent ADLs in order to be discharged to home with son with outpatient speech therapy orders. We will hold aspirin for a full 1 month due to the history of the bleed. Labs (last 24 hrs) Laboratory Tests 05/01/19 05:52: White Blood Count 6.6, Red Blood Count 4.37, Hemoglobin 11.8, Hematocrit 37, Mean Corpuscular Volume 84, Mean Corpuscular Hemoglobin 27, Mean Corpuscular Hemoglobin Concent 32, Red Cell Distribution Width 14.0, Platelet Count 182, Mean Platelet Volume 11.0H, Neutrophils (%) (Auto) 66, Lymphocytes (%) (Auto) 25, Monocytes (%) (Auto) 7, Eosinophils (%) (Auto) 3, Basophils (%) (Auto) 0, Neutrophils # (Auto) 4.3, Lymphocytes # (Auto) 1.6, Monocytes # (Auto) 0.4, Eosinophils # (Auto) 0.2, Basophils # (Auto) 0.0, Sodium Level 143, Potassium Level 4.0, Chloride Level 111H, Carbon Dioxide Level 23, Anion Gap 9, Blood Urea Nitrogen 29H, Creatinine 0.94, Estimat Glomerular Filtration Rate 57, BUN/Creatinine Ratio 31, Glucose Level 113H, Calcium Level 9.4, Corrected Calcium 9.6, Total Bilirubin 0.6, Aspartate Amino Transf (AST/SGOT) 28, Alanine Aminotransferase (ALT/SGPT) 23, Alkaline Phosphatase 47, Total Protein 6.1L, Albumin 3.7 Pending Labs Laboratory Tests 05/01/19 05:52: White Blood Count 6.6, Red Blood Count 4.37, Hemoglobin 11.8, Hematocrit 37, Mean Corpuscular Volume 84, Mean Corpuscular Hemoglobin 27, Mean Corpuscular Hemoglobin Concent 32, Red Cell Distribution Width 14.0, Platelet Count 182, Mean Platelet Volume 11.0, Neutrophils (%) (Auto) 66, Lymphocytes (%) (Auto) 25, Monocytes (%) (Auto) 7, Eosinophils (%) (Auto) 3, Basophils (%) (Auto) 0, Neutrophils # (Auto) 4.3, Lymphocytes # (Auto) 1.6, Monocytes # (Auto) 0.4, Eosinophils # (Auto) 0.2, Basophils # (Auto) 0.0, Sodium Level 143, Potassium Level 4.0, Chloride Level 111, Carbon Dioxide Level 23, Anion Gap 9, Blood Urea Nitrogen 29, Creatinine 0.94, Estimat Glomerular Filtration Rate 57, BUN/Creatinine Ratio 31, Glucose Level 113, Calcium Level 9.4, Corrected Calcium 9.6, Total Bilirubin 0.6, Aspartate Amino Transf (AST/SGOT) 28, Alanine Aminotransferase (ALT/SGPT) 23, Alkaline Phosphatase 47, Total Protein 6.1, Alb umin 3.7 Discharge Home Medications: Active Scripts Active Amlodipine Besylate 10 Mg Tablet 10 Mg PO HS Moexipril HCl 15 Mg Tablet 15 Mg PO HS 30 Days Reported Fenofibrate (Fenofibrate,Micronized) 134 Mg Capsule 134 Mg PO DAILY Escitalopram Oxalate 20 Mg Tablet 20 Mg PO HS Pravastatin Sodium 40 Mg Tablet 40 Mg PO HS LAST FILLED #90 06-28-18 Instructions to patient/family Please see electronic discharge instructions given to patient. Diagnosis/Problems Diagnosis/Problems (1) Intracranial bleed (2) Insomnia (3) Diabetes mellitus (4) Expressive aphasia (5) Hyperlipemia (6) Hypertension (7) History of TIA (transient ischemic attack) Clinical Quality Measures DVT/VTE Risk/Contraindication: Risk Factor Score Per Nursin RFS Level Per Nursing on Admit: 3=High Contraindications-Pharm: Other *list below* Other: brain bleed CONY COLLINS DO May 05, 2019 10:59
[2019-05-05] MEDS ORDERED: amLODIPine 10 MG (NORVASC) TAB PO SCH (21:00)
--- NOTE | 2019-05-07 10:23 | Therapy Team Discharge Summary ---
Therapy Discharge Summary Discharge Recommendations Date of Discharge May 05, 2019 at 10:00 Occupational Therapy Pt. was seen by occupational therapy to increase overall strength and indepen dence with daily tasks. Pt. met all goals. Pt. able to bathe/dress with independence for balance. Pt. able to toilet, groom, eat, ambulate with independence. All needs met. Pt. discharged home with family support. PT Half-Way Goals Margin Trimmer Goals PT Margin Trimmer Goals Time Frame: May 15, 2019 Roll Left to Right (QC): 6 Sit to Lying (QC): 6 Lying-Sitting on Side/Bed(QC): 6 Sit to Stand (QC): 6 Chair/Zyz-ox-Iancg Xfer(QC): 6 Car Transfer (QC): 6 Walk 10 feet (QC): 6 Walk 10ft-Uneven Surface(QC): 6 Walk 50ft with 2 Turns (QC): 6 Walk 150 ft (QC): 6 1 Step (curb) (QC): 6 4 Steps (QC): 6 12 Steps (QC): 6 Picking up an Object (QC): 6 OT Half-Way Goals Half-Way Goals Time Frame: May 14, 2019 Eating (QC): 6 (met-05/03/2019) Oral Hygiene (QC): 6 (met-05/03/2019) Shower/Bathe Self (QC): 6 (met-05/03/2019) Upper Body Dressing (QC): 6 (met-05/03/2019) Lower Body Dressing (QC): 6 (met-05/03/2019) On/Off Footwear (QC): 6 (met-05/03/2019) Toileting Hygiene (QC): 6 (met-05/03/2019) Toilet/Commode Transfer (QC): 6 Additional Goals: 1-Demonstrate ADL Tasks, 2-Verbalize Understanding, 3- ImproveStrength/Kapil 1=Demonstrate adherence to instructed precautions during ADL tasks. 2=Patient will verbalize/demonstrate understanding of assistive devices/modifications for ADL. 3=Patient will improve strength/tolerance for activity to enable patient to perform ADL's. Speech Margin Trimmer Goals Margin Trimmer Goals Patient will improve cognitive-communication necessary for safety and daily living tasks with minimal assist. KETURAH STOVALL OT May 07, 2019 10:23
--- NOTE | 2019-05-08 08:33 | Therapy Team Discharge Summary ---
Therapy Discharge Summary Discharge Recommendations Date of Discharge May 05, 2019 at 10:00 Speech-Language Pathology Patient was admitted to the ARU s/p CVA. Patient received skilled ST services for cognitive and aphasia. Patient made good progress toward ST goals. She was discharged 05/05/2019 to her home. She will be receiving outpatient ST beginning next week. PT Assisted Goals Assisted Goals PT Data Processing Clerk Goals Time Frame: May 15, 2019 Roll Left to Right (QC): 6 Sit to Lying (QC): 6 Lying-Sitting on Side/Bed(QC): 6 Sit to Stand (QC): 6 Chair/Hqm-ey-Nghlm Xfer(QC): 6 Car Transfer (QC): 6 Walk 10 feet (QC): 6 Walk 10ft-Uneven Surface(QC): 6 Walk 50ft with 2 Turns (QC): 6 Walk 150 ft (QC): 6 1 Step (curb) (QC): 6 4 Steps (QC): 6 12 Steps (QC): 6 Picking up an Object (QC): 6 OT Data Processing Clerk Goals Data Processing Clerk Goals Time Frame: May 14, 2019 Eating (QC): 6 (met-05/03/2019) Oral Hygiene (QC): 6 (met-05/03/2019) Shower/Bathe Self (QC): 6 (met-05/03/2019) Upper Body Dressing (QC): 6 (met-05/03/2019) Lower Body Dressing (QC): 6 (met-05/03/2019) On/Off Footwear (QC): 6 (met-05/03/2019) Toileting Hygiene (QC): 6 (met-05/03/2019) Toilet/Commode Transfer (QC): 6 Additional Goals: 1-Demonstrate ADL Tasks, 2-Verbalize Understanding, 3- ImproveStrength/Kapil 1=Demonstrate adherence to instructed precautions during ADL tasks. 2=Patient will verbalize/demonstrate understanding of assistive device s/modifications for ADL. 3=Patient will improve strength/tolerance for activity to enable patient to perform ADL's. Speech Data Processing Clerk Goals Assisted Goals Patient will improve cognitive-communication necessary for safety and daily living tasks with minimal assist. Met MIMI BARNES May 08, 2019 08:33
== END 2019-05-05 10:00 | disposition home or self-care (01) | DRG 57 ==
PROVIDERS: ADMIT Internal Medicine; ATTEND Internal Medicine
DX: I69.220 Aphasia following other nontraumatic intracranial hemorrhage (principal); I69.218 Other symptoms and signs involving cognitive functions following other nontraumatic intracranial hemorrhage; E11.9 Type 2 diabetes mellitus without complications; I10 Essential (primary) hypertension; E78.5 Hyperlipidemia, unspecified; I38 Endocarditis, valve unspecified; M19.91 Primary osteoarthritis, unspecified site; G47.00 Insomnia, unspecified; Z86.73 Personal history of transient ischemic attack (TIA), and cerebral infarction without residual deficits; Z90.49 Acquired absence of other specified parts of digestive tract; Z90.710 Acquired absence of both cervix and uterus
CPT/HCPCS: 36415; 80053; 85025

== ENCOUNTER 2019-06-28 13:02 | Outpatient (RCR) | payer BC, MEDICARE ==
[~2019-06-28 13:02] MED LIST changes: +AMLO10TA7 PO; +ESCI20TA PO; +ESCI20TA45 PO; +FENO145T2 PO
== END 2019-06-28 14:28 | disposition home or self-care (01) ==
PROVIDERS: ATTEND Internal Medicine
DX: I62.9 Nontraumatic intracranial hemorrhage, unspecified (principal); G31.84 Mild cognitive impairment of uncertain or unknown etiology; R47.01 Aphasia

== ENCOUNTER → 2020-08-06 | Outpatient (CLI) | payer BC, MEDICARE ==
[~2020-08-06] MED LIST changes: +AMLO-251 PO; -AMLO10TA7 PO; +CATHETER FLUSH 10 ML SYR IV PRN; +ESCI20TA39 PO; -ESCI20TA45 PO; +HOLD METFORMIN - RECEIVED CONTRAST 20 ML VIAL IV SCH; +IOHEXOL 350 MG/ML 100 ML (OMNIPAQUE 350) VIAL IV ONE; +NS 100 ML (IVPB) BAG IV ONE
[2020-08-06 08:20] LABS: CREATININE SERUM 0.92 MG/DL (0.60-1.30)
--- NOTE | 2020-08-06 08:51 | Diagnostic Imaging Report ---
INDICATION: Fall, back pain. FINDINGS: Five views of the lumbosacral spine show normal height of the vertebral bodies. There is diffuse degenerative disc and facet disease present with disc space narrowing and spondylosis at all levels. Narrowing is most pronounced at the L2-L3 and L3-L4 levels. There is several millimeters of retrolisthesis at L3-L4. There are degenerated facets, most pronounced at L4 and L5. No spondylolysis is evident. No fracture or other acute abnormality is seen. There is a 2.5 cm calculus in the left renal pelvis with smaller stones seen in the kidneys bilaterally. IMPRESSION: There is advanced diffuse degenerative disc and facet disease present with no acute bony abnormality seen. There are bilateral renal stones present. Dictated by: Dictated on workstation # [id number]
--- NOTE | 2020-08-06 10:15 | Diagnostic Imaging Report ---
PROCEDURE: CT abdomen and pelvis with and without contrast. TECHNIQUE: Precontrast acquisitions were acquired through the abdomen and pelvis. Multiple contiguous axial images were obtained through the abdomen and pelvis after the administration of intravenous contrast. Auto Exposure Controls were utilized during the CT exam to meet ALARA standards for radiation dose reduction. INDICATION: Low back pain and left lower quadrant pain. No prior studies are available for comparison. The lung bases are clear. There appears to be a small amount of pericardial fluid. No discrete liver mass is identified. Gallbladder appears to be surgically absent. There is no biliary ductal dilatation. Pancreas and spleen are unremarkable. No adrenal mass is detected. There are bilateral nonobstructing calculi. Largest calculus is on the left located in the renal pelvis measuring approximately 22 mm x 24 mm. There is also a 9 mm nonobstructing calculus lower pole left kidney. Several smaller calculi in the right kidney are noted. There are multiple renal sinus cysts bilaterally. There also appears to be some hydronephrosis on the left due to a large renal pelvic calculus. No ureteral calculi are seen. Aorta is nonaneurysmal. Evaluation of the bowel loops shows normal caliber. There is abnormal soft tissue thickening versus mass in the region of the cecum. This area measures 5.7 x 4.9 cm. The remainder of the colon appears unremarkable. Small bowel is unremarkable. There is no ascites. No central retroperitoneal or mesenteric lymphadenopathy is seen although there are small lymph nodes adjacent to the cecum. No definite pelvic lymphadenopathy is identified. Bladder is decompressed. The bony structures are nonacute. IMPRESSION: 1. Bilateral nephrolithiasis. There is a large calculus in the left renal pelvis producing mild/moderate left-sided hydronephrosis. No ureteral calculi or hydroureter is detected. 2. Abnormal soft tissue thickening versus mass in the region of the cecum. Cecal neoplasm cannot be excluded and colonoscopy is recommended for further evaluation. Dictated by: Dictated on workstation # [id number]
== END ==
LOC: RAD 08:45
PROVIDERS: ATTEND Family Medicine
DX: M47.816 Spondylosis without myelopathy or radiculopathy, lumbar region (principal); M51.36 Other intervertebral disc degeneration, lumbar region; N13.2 Hydronephrosis with renal and ureteral calculous obstruction
CPT/HCPCS: 36415; 72100; 74178; 82565; 84520

== ENCOUNTER 2020-09-15 13:16 | Inpatient (IN) | payer BC, MEDICARE ==
[~2020-09-15] VITALS: Ht 167 cm; Wt 91.0 kg
[~2020-09-15 13:16] MED LIST changes: -CATHETER FLUSH 10 ML SYR IV PRN; -HOLD METFORMIN - RECEIVED CONTRAST 20 ML VIAL IV SCH; -IOHEXOL 350 MG/ML 100 ML (OMNIPAQUE 350) VIAL IV ONE; -NS 100 ML (IVPB) BAG IV ONE
[2020-09-15] MEDS ORDERED: PRAV40TA2 PO (15:18)
[2020-09-15] MEDS ORDERED: AMLO-251 PO (15:18)
[2020-09-15] MEDS ORDERED: TRAM50TA3 PO (15:18)
[2020-09-15] MEDS ORDERED: VITA1TAB17 PO (15:18)
[2020-09-15] MEDS ORDERED: ACET-2267 PO (15:18)
[2020-09-15] MEDS ORDERED: CALC1TAB29 PO (15:18)
[2020-09-15] MEDS ORDERED: MOEX15TA PO (15:18)
[2020-09-15] MEDS ORDERED: LACT-228 PO (15:18)
[2020-09-15] MEDS ORDERED: POLY119P12 PO (15:24)
[2020-09-15 16:20] VITALS: BP 188/84
[2020-09-15] MEDS ORDERED: guaiFENesin/CODEINE (ROBITUSSIN AC) 10ML UDC PO PRN (16:45)
[2020-09-15] MEDS ORDERED: HYDROcodone/APAP 5 MG/325 MG (LORTAB) TAB PO PRN (16:45)
[2020-09-15] MEDS ORDERED: ALPRAZolam 0.25 MG (XANAX) TAB PO PRN (16:45)
[2020-09-15] MEDS ORDERED: FLEET ENEMA ADULT 1 EA BTL PR PRN (16:45)
[2020-09-15] MEDS ORDERED: LOPERAMIDE 2 MG (IMODIUM) TABLET PO PRN (16:45)
[2020-09-15] MEDS ORDERED: ONDANSETRON 4 MG (ZOFRAN) ORAL DISSOLVE TAB PO PRN (16:45)
[2020-09-15] MEDS ORDERED: ACETAMINOPHEN 325 MG TABLET PO PRN (16:45)
[2020-09-15] MEDS ORDERED: CALCIUM CARBONATE 500 MG (TUMS) TAB.CHEW PO PRN (16:45)
[2020-09-15] MEDS ORDERED: diphenhydrAMINE 25 MG TAB (BENADRYL) PO PRN (16:45)
[2020-09-15] MEDS ORDERED: DOCUSATE SODIUM 100 MG (COLACE) CAP PO PRN (16:45)
[2020-09-15] MEDS ORDERED: BISACODYL 10 MG SUPP (DULCOLAX) PR PRN (16:45)
[2020-09-15] MEDS ORDERED: LACTULOSE SYRUP 10GM/15ML (ENULOSE) 30ML UDC PO PRN (16:45)
--- NOTE | 2020-09-15 17:04 | PM&R Post Admission Assessment ---
PM&R HP Date of Visit: September 15, 2020 Time of Visit: 17:15 History of Present Illness CC: Debility from partial colon resection surgery at [facility] HPI: This is an 80yoWF clinic patient of Dr Johnson who is known to me from prior admit following a CVA who presents from [facility] following an uncomplicated cecum resection due to colon mass at . 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 Currently she has elevated BP due to holding meds due to post op hypotension. Overall she is feeling well and pain is controlled. Patient ate supper w/o difficulty. PLOF was independent with ADL's and ambulation. Goal is to be recovered by November for grandchild's wedding. Note: Name: Kate Mckinley "Kate Alba" Canela : 1940 AGE: 80 y.o. 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 Patient states that she originally presented with abdo deepali pain that led to eval for UTI, which then led to a CT a/p being done because of some leukocytosis on labs? UA?, which then showed thickening of the cecum. 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 CEA 68.8. CT chest no mets. Denies change in bowel habits, weight loss, blood in stool, nausea, vomiting. BMs every other day, usually pretty soft, doesn't strain though has some hemorrhoids, denies bleeding. Denies any type of incontinence. No family history of colorectal cancer. She reports having had multiple colonoscopies in the past (maybe 6) with the most recent being ~5 years ago during which a polyp was removed. Med hx includes hemorrhagic stroke about a year ago, no residual deficits. No further strokes. Denies [place], cardiovascular disease, renal disease or hx of HD. Denies blood thinners or steroids. Denies smoking. Denies EtOH use. Abdominal surgical hx pos for open cholecystectomy via upper paramedian incision and open appendectomy in her 20s, an open hysterectomy via pfannenstiel in her 30s and a lung nodule excision in her 50s. Activity level: swims, walks a bit. Mobility primarily limited by arthritis and back pain. She would like to be recovered by late November 2020 for her grandchild's wedding. 08/22/2020 - CT Chest: 1. There are a few tiny pulmonary nodules probably unrelated to patient's newly diagnosed colon cancer. Attention on 3-6 month follow-up CT or per clinical protocol to reassess. 2. No intrathoracic lymphadenopathy. 3. Partially calcified soft tissue attenuating lesion in the prevascular, anterior mediastinum is indeterminant for a thymic epithelial neoplasm. This could be further evaluated with PET/CT to determine metabolic activity as MRI may be difficult given calcifications. Alternatively, attention on follow-up chest CT if a more conservative approach is desired. 08/22/2020 - CEA 68.8 08/13/2020 - Colonoscopy: The Colonoscope [id number] was introduced through the anus and advanced to the cecum, identified by appendiceal orifice and ileocecal valve. The colonoscopy was performed with ease. The patient tolerated the procedure well. The quality of the bowel preparation was good. The ileocecal valve and the appendiceal orifice were photographed. Findings: A fungating non-obstructing large mass was found in the cecum. The mass was non-circumferential. No bleeding was present. Biopsies were taken with a cold forceps for histology. Non-bleeding external and internal hemorrhoids were found during retroflexion. The hemorrhoids were medium-sized. Impression: - Malignant tumor in the cecum. Biopsied. - Non-bleeding external and internal hemorrhoids. Pathology: A. Colonic mucosa, "cecum mass", biopsy: Invasive moderately differentiated adenocarcinoma. See comment i. Immunohistochemistry (IHC) Testing for Mismatch Repair (MMR) Proteins MLH1 Intact nuclear expression MSH2 Intact nuclear expression MSH6 Intact nuclear expression PMS2 Intact nuclear expression Background nonneoplastic tissue/internal control with intact nuclear expression: yes IHC Interpretation No loss of nuclear expression of MMR proteins: low probability of microsatellite instability-high (MSI-H)# Addendum Comment At the request of Dr. Yu Chase, the specimen is evaluated for testing of MSI mutation. Tissue sections from block A1 were submitted to [facility] for analysis, and the results are listed below. (Please refer to O2 for a scanned image of the original report). Test Performed MSI Analysis Specimen Type FFPE (70.0% tumor cellularity) Analytical Results The specimen tested HUMBERTO (no alterations in microsatellite markers). Interpretation MSI (Microsatellite instability) was not detected with this assay. Our validation results indicate a detectable level of 16.7% tumor tissue DNA in a normal tissue DNA background. A negative result does not rule out the presence of mutated markers not detectable by this technology. The result should be interpreted only in the context of total clinical information. Therapeutic action should not be taken based solely on this result. Testing Performed By: [facility], Department of Pathology and Laboratory Medicine, [facility]; [address] [place] [address], [address]; [address] [facility]; [place] [address] ; Pipe Stem Aligner: Asa Zuniga, PhD Call Center Professional: Nils Kellogg MD, PhD 08/06/2020 - CT Abd/Pelv: 1. Bilateral nephrolithiasis. There is a large calculus in the left renal pelvis producing mild/moderate left-sided hydronephrosis. No ureteral calculi or hydroureter is detected. 2. Abnormal soft tissue thickening versus mass in the region of the cecum. Cecal neoplasm cannot be excluded and colonoscopy is recommended for further evaluation. Review of Systems Constitutional: Negative. HENT: Negative. Eyes: Negative. Respiratory: Negative. Cardiovascular: Negative. Gastrointestinal: Negative. Endocrine: Negative. Genitourinary: Negative. Musculoskeletal: Negative. Skin: Negative. Allergic/Immunologic: Negative. Neurological: Negative. Hematological: Negative. Psychiatric/Behavioral: Negative. All other systems reviewed and are negative. Medical History: Diagnosis Date Cancer of colon (HCC) Disorganized thinking Encephalomal[place] Hearing reduced Hyperlipidemia Hypertension Memory loss Stroke (HCC) Urinary tract infection Surgical History: Procedure Laterality Date COLONOSCOPY DIAGNOSTIC WITH SPECIMEN COLLECTION BY BRUSHING/ WASHING - FLEXIBLE N/A 08/13/2020 Performed by Dutch De Santiago MD at [facility] COLONOSCOPY WITH BIOPSY - FLEXIBLE 08/13/2020 Performed by Dutch De Santiago MD at [facility] HX APPENDECTOMY HX CHOLECYSTECTOMY HX HYSTERECTOMY Family History Problem Relation Age of Onset Hypertension Other Diabetes Father Dementia Neg Hx Social History Socioeconomic History Marital status: Spouse name: Not on file Number of children: Not on file Years of education: Not on file Highest education level: Not on file Occupational History Not on file Tobacco Use Smoking status: Never Smoker Smokeless tobacco: Never Used Substance and Sexual Activity Alcohol use: Never Frequency: Never Drug use: Never Sexual activity: Not on file Other Topics Concern Not on file Social History Narrative in 2008 2 children: son and daughter Not driving Has completed AD, will complete again. PETEY; Maxime Canela Objective: amLODIPine (NORVASC) 10 mg tablet Take one tablet by mouth daily. CALCIUM PO Take by mouth. escitalopram oxalate (LEXAPRO) 20 mg tablet Take 20 mg by mouth at bedtime daily. Lactobacillus acidophilus (PROBIOTIC PO) Take by mouth daily. moexipril (UNIVASC) 15 mg tablet Take 15 mg by mouth every morning. Take on an empty stomach. peg-electrolyte solution (NULYTELY) 420 gram oral solution Mix as directed on package. Drink 240ml (8oz) every 10 minutes until gone. Refrigerate once mixed. pravastatin (PRAVACHOL) 40 mg tablet Take one tablet by mouth at bedtime daily. vitamins, B complex tab Take 1 tablet by mouth daily. Vitals: 08/26/20 1119 BP: 138/58 BP Source: Arm, Left Upper Patient Position: Sitting Pulse: 60 Resp: 16 Temp: 36.4 C (97.6 F) SpO2: 99% Weight: 93.3 kg (205 lb 9.6 oz) Height: 162 cm (63.78") PainSc: Zero Body mass index is 35.54 kg/m. Pain Score: Zero Fatigue Scale: 0-None Pain Addressed: N/A Patient Evaluated for a Clinical Trial: No treatment clinical trial available for this patient. Eastern Cooperative Oncology Group performance status is 1, Restricted in physically strenuous activity but ambulatory and able to carry out work of a light or sedentary nature, e.g., light house work, office work. Physical Exam GEN: alert and oriented no acute distress HEENT: NCAT, no scleral icterus CARDIO: RRR, peripheral pulses wnl PULM: normal work of breathing, no stridor, on RA ABD: soft, NTND, upper abdominal paramedial incision scar. RLQ mcburney incision scar EXT: no c/c/e, warm, well-perfused NEURO: motor and sensation grossly intact INTEG: warm, dry, appropriate for age and race PSYCH: cooperative, appropriate mood and affect Assessment and Plan: Problem List: Colon Cancer Cerebral amyloid angiopathy HLD HTN 80 yo F w newly diagnosed HUMBERTO cecal adenocarcinoma - We discussed with Ms. Canela and her son that given her cecal adenoCA diagnosis without any mets or appreciable LAD, we would recommend surgical resection up front, and depending on intraoperative/path findings may or may not need adjuvant treatment. If adjuvant treatment were recommended, would wait at least 4 weeks postop. We will plan on proceeding with laparoscopic possible open right hemicolectomy. Risks and benefits of surgery discussed in detail with patient, including, but not limited to the risk of bleeding, infection, anastomotic leak, damage to nearby structures (ureter, duodenum), hernia, and the potential need for further interventions. All questions answered to the patient's satisfaction. Informed consent obtained and signed. - JANICE Aparicio, DO General Surgery PGY5 Past Tykypty-Safxne-Cvrvva Hx Past Med/Social Hx: Reviewed Nursing Past Med/Soc Hx, Reviewed and Corrections made Patient Social History Marrital Status: Employed/Student: retired Alcohol Use: Occasionally Uses Smoking Status: Never a Smoker 2nd Hand Smoke Exposure: No Recent Hopitalizations: No Immunizations Up To Date Pediatric: Yes Date of Pneumonia Vaccine: Mar 21, 2014 Date of Influenza Vaccine: Jan 29, 2019 Seasonal Allergies Seasonal Allergies: Yes Past Medical History Surgeries: Appendectomy, Gallbladder, Hysterectomy Cardiac: High Cholesterol, Hypertension, Valvular Heart Disease Neurological: Stroke, TIA Sexually Transmitted Disease: No HIV/AIDS: No Female Reproductive Disorders: Denies Musculoskeletal: Arthritis, Fractures Endocrine: Diabetes, Non-Insulin dep Loss of Vision: Denies Hearing Impairment: Denies History of Blood Disorders: No Family History Patient reports no known family medical history. No Pertinent Family Hx Occupation: retired; [employer] office. PM&R Allergy/Meds/Data Review Allergies Uncoded Allergies: ERTHROMYCIN (Allergy, Unknown, 05/08/12) Home Medications Scheduled Amlodipine Besylate (Amlodipine Besylate), 10 MG PO DAILY, (Reported) Calcium Carbonate/Vitamin D3 (Os-Atul 500+D3 Caplet), 1 EACH PO DAILY, (Reported) Escitalopram Oxalate (Escitalopram Oxalate), 20 MG PO HS, (Reported) Lactobacillus Rhamnosus GG (Culturelle), 1 EACH PO DAILY, (Reported) Moexipril HCl (Moexipril HCl), 15 MG PO DAILY, (Reported) Pravastatin Sodium (Pravastatin Sodium), 40 MG PO HS, (Reported) Vitamin B Complex (Vitamin B Complex), 1 EACH PO DAILY, (Reported) Scheduled PRN Acetaminophen (Tylenol Extra Strength), 1,000 MG PO Q6H PRN for PAIN-MILD (1-4), (Reported) Tramadol HCl (Tramadol HCl), 50 MG PO Q6H PRN for PAIN-MODERATE (5-7), (Reported) Discontinued Medications Amlodipine Besylate (Amlodipine Besylate), 10 MG PO HS Discontinued Reason: Duplicate Order Fenofibrate,Micronized (Fenofibrate), 134 MG PO DAILY, (Reported) Discontinued Reason: Duplicate Order Moexipril HCl (Moexipril HCl), 15 MG PO HS Discontinued Reason: No Longer Taking Pravastatin Sodium (Pravastatin Sodium), 40 MG PO HS, (Reported) Discontinued Reason: Duplicate Order Current Medications Current Medications Reviewed Review of Systems Constitutional: see HPI, malaise, weakness EENTM: no symptoms reported Respiratory: no symptoms reported Cardiovascular: no symptoms reported Gastrointestinal: abdominal pain, loss of appetite Genitourinary: no symptoms reported Musculoskeletal: no symptoms reported Skin: no symptoms reported Psychiatric/Neurological: No Symptoms Reported All Other Systems Reviewed Negative Unless Noted: Yes Physical Exam Physical Exam Vital Signs Capillary Refill : Height, Weight, BMI Height: 5'6.00" Weight: 196lbs. 0.0oz. [id number]; 32.62 BMI Method:Stated General Appearance: No Apparent Distress, WD/WN, Chronically ill Eyes: Bilateral Eye Normal Inspection, Bilateral Eye PERRL HEENT: PERRL/EOMI, Normal ENT Inspection, Pharynx Normal Neck: Full Range of Motion, Normal Inspection, Non Tender, Supple, Carotid Bruit Respiratory: Chest Non Tender, Lungs Clear, Normal Breath Sounds, No Accessory Muscle Use, No Respiratory Distress Cardiovascular: Regular Rate, Rhythm, No Edema, No Gallop, No JVD, No Murmur, Normal Peripheral Pulses Gastrointestinal: Normal Bowel Sounds, No Organomegaly, No Pulsatile Mass, Non Tender, Soft Back: Normal Inspection, No CVA Tenderness, No Vertebral Tenderness Extremity: Normal Capillary Refill, Normal Inspection, Normal Range of Motion, Non Tender, No Calf Tenderness, No Pedal Edema Neurologic/Psychiatric: Alert, Oriented x3, Normal Mood/Affect, Abnormal Gait, Motor Weakness (generalized lower extremities) Skin: Normal Color, Warm/Dry Lymphatic: No Adenopathy PM&R Medical Assessment & Plan REHAB/MEDICAL ASSESSMENT AND PLAN: REHAB IMPAIRMENT GROUP: Debility ETIOLOGIC DIAGNOSIS: Debility The comorbidities that impact the patients function and/or functional outcome by: advanced age, new cancer dx, BP OOC, Anemia, h/o CVA REHAB PLAN: The patient is being admitted to our comprehensive inpatient rehabilitation facility and can tolerate the intensity of service consisting of at least: 180 minutes of therapy a day, 5 out of 7 days a week Rehab treatment will consist of: PT OT will focus on regaining strength and independence in ADL's in order to recover and evaluate for cancer treatment and return to independent living The patient/family has a good understanding of our discharge process and will benefit from an interdisciplinary inpatient rehabilitation program. The patient has potential to make improvement and is in need of at least two of the following multidisciplinary therapies including but not limited to physical, occupational, speech, and prosthetics and orthotics. Additionally the patient will need services from respiratory, nutritional services, wound care, psychology, etc. (Customize this to each patient). Given the patients complex condition and risk of further medical complications, rehabilitation services cannot be safely or effectively provided at a lower level of care such as a residential facility. BARRIERS TO DISCHARGE: Advanced age with new cancer diagnosis ESTIMATED LOS: 7 days DISPOSITION: Home RELEVANT CHANGES SINCE PREADMISSION SCREENING: I have compared the patients medical and functional status at the time of the preadmission screening and there are: no changes PROGNOSIS: Good REHABILITATION GOALS: 1. PT OT will focus on regaining strength and independence in ADL's in order to recover and evaluate for cancer treatment and return to independent living All the above goals were reviewed with the patient and he/she is in agreement. By signing this document, I acknowledge that I have personally performed a full physical examination on this patient within 24 [facility] and have determined the patient to be able to tolerate the above course of treatment at an intensive level for a reasonable period of time. I will be completing a detailed individualized Plan of Care for this patient by day #4 of the patients stay based upon the Preadmission Screen, the Post-Admission Evaluation, and the therapy evaluations. Admission Dx/Comorbidities: (1) Debility ICD Codes: R53.81 - Other malaise (2) Adenocarcinoma of cecum ICD Codes: C18.0 - Malignant neoplasm of cecum (3) ICH (intracerebral hemorrhage) ICD Codes: I61.9 - Nontraumatic intracerebral hemorrhage, unspecified (4) Expressive aphasia ICD Codes: R47.01 - Aphasia (5) Hyperlipemia ICD Codes: E78.5 - Hyperlipidemia, unspecified (6) Hypertension ICD Codes: I10 - Essential (primary) hypertension (7) Diabetes mellitus ICD Codes: E11.9 - Type 2 diabetes mellitus without complications Assessment/Plan Assessment and Plan Assess & Plan/Chief Complaint Assessment: Debility following partial colon resection Adenocarcinoma of cecum HTN h/o ICH 04/2019 DM HLP Plan: IRF protocol Monitor labs CONY Williamson DO September 15, 2020 17:04
[2020-09-15 20:00] VITALS: BP 196/83
[2020-09-15] MEDS ORDERED: NON-FORMULARY MEDICATION 1 EA EA (Escitalopram Oxalate 20 MG) PO SCH (21:00)
[2020-09-15] MEDS ORDERED: NON-FORMULARY MEDICATION 1 EA EA (Pravastatin Sodium 40 MG) PO SCH (21:00)
[2020-09-15] MEDS: ATORVASTATIN 10 MG TABLET PO SCH (21:20)
[2020-09-15] MEDS: amLODIPine 10 MG (NORVASC) TAB PO SCH (21:21)
[2020-09-15] MEDS: MELATONIN 3 MG TABLET PO PRN (21:22)
[2020-09-15] MEDS: DOCUSATE SODIUM 100 MG (COLACE) CAP PO SCH (21:23)
[2020-09-15] MEDS: polyethylene glycoL POWDER 17 GM (MIRALAX) PACK PO SCH (21:23)
[2020-09-15] MEDS: SENNA W/DOCUSATE (SENOKOT S) TABLET PO SCH (21:24)
[2020-09-15 22:50] VITALS: BP 145/69
[2020-09-16 06:00] VITALS: BP 128/63
[2020-09-16] MEDS ORDERED: MOEXIPRIL HCL 15 MG PO SCH ×2 (06:00→09:00)
[2020-09-16] MEDS: lisINopril 20 MG (PRINIVIL) TABLET PO SCH (06:04)
[2020-09-16 06:35] LABS: BASOPHILS % (AUTO) 0 % (0-10); EOSINOPHILS # (AUTO) 0.2 10^3/uL (0.0-0.3); EOSINOPHILS % (AUTO) 3 % (0-10); HEMATOCRIT 33 % (35-52); HEMOGLOBIN 10.2 g/dL (11.5-16.0); LYMPHOCYTES # (AUTO) 1.7 10^3/uL (1.0-4.0); LYMPHOCYTES % (AUTO) 28 % (12-44); MEAN CORPUSCULAR HEMOGLOBIN 25 pg (25-34); MEAN CORPUSCULAR HGB CONC 31 g/dL (32-36); MEAN CORPUSCULAR VOLUME 82 fL (80-99); MEAN PLATELET VOLUME 10.3 fL (9.0-12.2); MONOCYTES # (AUTO) 0.4 10^3/uL (0.0-1.0); MONOCYTES % (AUTO) 6 % (0-12); NEUTROPHILS # (AUTO) 3.8 10^3/uL (1.8-7.8); NEUTROPHILS % (AUTO) 62 % (42-75); PLATELET COUNT 183 10^3/uL (130-400); WHITE BLOOD COUNT 6.1 10^3/uL (4.3-11.0)
[2020-09-16 06:49] LABS: ALBUMIN 3.1 GM/DL (3.2-4.5); CHLORIDE 109 MMOL/L (98-107); POTASSIUM 4.3 MMOL/L (3.6-5.0); SODIUM 143 MMOL/L (135-145)
[2020-09-16 06:50] LABS: CALCIUM 9.1 MG/DL (8.5-10.1)
[2020-09-16 06:51] LABS: GLUCOSE 131 MG/DL (70-105)
[2020-09-16 06:52] LABS: TOTAL PROTEIN 5.4 GM/DL (6.4-8.2)
[2020-09-16 06:53] LABS: BILIRUBIN,TOTAL 0.4 MG/DL (0.1-1.0); CARBON DIOXIDE 27 MMOL/L (21-32)
[2020-09-16 06:55] LABS: ALKALINE PHOSPHATASE 51 U/L (40-136); CREATININE SERUM 0.72 MG/DL (0.60-1.30); GFR ESTIMATED > 60
[2020-09-16 06:56] LABS: BUN/CREATININE RATIO 24
[2020-09-16 06:58] LABS: ALANINE AMINOTRANSFERASE 10 U/L (0-55)
[2020-09-16] MEDS: MULTIVIT W/MINERALS TAB (THERAGRAN M) PO SCH (07:01)
[2020-09-16 08:00] VITALS: BP 157/69
[2020-09-16] MEDS: CALCIUM CARB + VIT D 600 MG (CALCARB + D) TAB PO SCH (08:45)
[2020-09-16] MEDS: LACTOBACILLUS ACIDOPHILUS (PROBIOTIC) CAPSULE PO SCH (08:45)
[2020-09-16] MEDS: SENNA W/DOCUSATE (SENOKOT S) TABLET PO SCH ×2 (08:47→21:09)
[2020-09-16] MEDS: DOCUSATE SODIUM 100 MG (COLACE) CAP PO SCH ×2 (08:47→21:08)
[2020-09-16] MEDS: polyethylene glycoL POWDER 17 GM (MIRALAX) PACK PO SCH ×2 (08:47→21:08)
[2020-09-16] MEDS: ENOXAPARIN 40 MG/0.4 ML (LOVENOX) SYR SC SCH (08:47)
--- NOTE | 2020-09-16 08:58 | ST Cognitive Linguistic Eval ---
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 Hills Medical History Pertinent Medical History: HTN Reviewed History: Yes Social History Current Living Status: Alone Speech PLF-Current Status Prior Level of Function Patient lives alone in her own home where she is independent for much of her daily needs. She does have a large family who are very supportive of her needs. Subjective Patient was very pleasant during the cognitive assessment. Language Eval: Auditory Comprehends Simple Yes/No Ques: Functional Indent/Objects Multiple Pozo: Functional Ident/Pics in Multiple Pozo: Functional Follows 1-Step Commands: Functional Follows Complex Directions: Mild Follows General Conversations: Mild Language Eval: Verbal Language Completes Spontaneous Greeting: Functional Produces Auto, Serial Info: Functional Imitates Simple Words/Phrases: Functional Word Finding: Moderate Requests Basic Needs: Mild States Basic Personal Info: Mild Expresses Complex Ideas: Moderate Objective Cognitive Domain Attention: Mild Memory: Mild Problem Solving: Moderate Executive Functions: Mild Visuospatial Skills: WNL Composite Severity Rating: Moderate Clock Drawing Severity Rating: Mild Objective Formal/Standardized Tests [facility] [facility] ([facility]) Results 24/30, Mild Neurocognitive Disorder Oral Motor/Speech Production Within Normal Limits Impression Patient is a pleasant 80 y/o female who was admitted to the ARU following colon surgery to remove a malignant mass. The patient was given the UMS with a score of 24/30 obtained. Patient's score is within the MNCD range of function. 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 Patient has deficits in word finding, memory and primarily decreased ability to stay on topic. Patient will receive skilled ST with focus on effective communication. Speech Patient Assess Expression of Ideas/Wants: Frequently (2) Understanding Verbal Content: Usually Understands (3) Brief Interview-Mental Status: Yes Repetition of Three Words: Three (3) Temporal Orientation: Year: Correct (3) Temporal Orientation: Month: Accurate within 5 days(2) Temporal Orientation: Day: Correct (1) Recall : Wear to say "Sock": No, could not recall (0) Recall : Color: No, could not recall (0) Recall : Bed: Yes,after cueing (1) Memory/Recall Ability: Current season, Staff names and faces, That he or she is in a hsp/hsp unit Speech Short Term Goals Short Term Goals Short Term Goals 1) Patient will complete recall of information tasks related related to her needs at 75% or greater with minimal cues. 2) Patient will demonstrate the ability to stay on topic for 5 minutes or greater with 75% or greater with minimal cues. 3) Patient will complete word finding tasks with 75% accuracy or greater with minimal cues. Speech [employer] Cook Goals [employer] Cook Goals Patient will improve cognitive-communication abilities in order to require decreased assist with ADL's. Speech-Plan Patient/Family Goals Patient/Family Goals: Patient wants to return to her home where she lives alone. She will have family and other staff for support of her daily needs. Treatment Plan Speech Therapy Treatment Plan: Continue Plan of Care Treatment Duration: Sep 26, 2020 Frequency: 4 times per week (Patient will receive skilled ST 4-5x per week) Estimated Hrs Per Day: .5 hour per day Rehab Potential: Fair Barriers to Learning: Patient's brain bleed in 2019 with aphasia, age Pt/Family Agrees to Plan: Yes Safety Risks/Education Teaching Methods: Discussion Response to Teaching: Verbalize Understanding Education Topics Provided: Safety within her room, communication of wants/needs Time Speech Therapy Time In: 08:30 Speech Therapy Time Out: 09:00 Total Billed Time: 30 Billed Treatment Time 1, SÁNCHEZ PLUNKETT Yes MIMI BARNES September 16, 2020 08:58
[2020-09-16] MEDS ORDERED: VITAMIN D3 PO SCH (09:00)
[2020-09-16] MEDS ORDERED: NON-FORMULARY MEDICATION 1 EA EA (Lactobacillus Rhamnosus GG (Culturelle) 1 EACH) PO SCH (09:00)
[2020-09-16] MEDS ORDERED: NON-FORMULARY MEDICATION 1 EA EA (Vitamin B Complex 1 EACH) PO SCH (09:00)
[2020-09-16] MEDS ORDERED: [UNRECOGNIZED DRUG - OTHER] PO SCH (09:00)
[2020-09-16] MEDS ORDERED: CALCIUM CARBONATE PO SCH (09:00)
--- NOTE | 2020-09-16 09:04 | PM&R Progress Note ---
Subjective HPI/CC On Admission Date Seen by Provider: September 16, 2020 Time Seen by Provider: 09:10 Subjective/Events-last exam 09/16/20: Pt doing really well Able to communicate really well Bowels are moving BP was a little bit elevated today, she had missed several days of her BP medication while recovering from surgery at BP of 190 prompted an additional dose of Amlodipine of 5 mg Hgb is stable at 10.2 Review of Systems General: Fatigue Objective Exam Vital Signs Vital Signs Date Time Temp Pulse Resp B/P (MAP) Pulse Ox O2 Delivery O2 Flow Rate FiO2 09/16/20 21:14 Room Air 09/16/20 20:00 37.0 63 16 135/64 (87) 97 Capillary Refill : General Appearance: No Apparent Distress, WD/WN, Chronically ill HEENT: PERRL/EOMI, Normal ENT Inspection, Pharynx Normal Neck: Full Range of Motion, Normal Inspection, Non Tender, Supple, Carotid Bruit Respiratory: Chest Non Tender, Lungs Clear, Normal Breath Sounds, No Accessory Muscle Use, No Respiratory Distress Cardiovascular: Regular Rate, Rhythm, No Edema, No Gallop, No JVD, No Murmur, Normal Peripheral Pulses Gastrointestinal: Normal Bowel Sounds, No Organomegaly, No Pulsatile Mass, Non Tender, Soft Back: Normal Inspection, No CVA Tenderness, No Vertebral Tenderness Extremity: Normal Capillary Refill, Normal Inspection, Normal Range of Motion, Non Tender, No Calf Tenderness, No Pedal Edema Neurologic/Psychiatric: Alert, Oriented x3, Normal Mood/Affect, Abnormal Gait, Motor Weakness (generalized lower extremities) Skin: Normal Color, Warm/Dry Lymphatic: No Adenopathy Results/Procedures Lab Laboratory Tests 09/16/20 06:20 Patient resulted labs reviewed. FIM Transfers Therapy Code Descriptions/Definitions Functional [place] Measure: 0=Not Assessed/NA 4=Minimal Assistance 1=Total Assistance 5=Supervision or Setup 2=Maximal Assistance 6=Modified [place] 3=Moderate Assistance 7=Complete IndependenceSCALE: Activities may be completed with or without assistive devices. 6-[place]-cvlfzzi completes the activity by him/herself with no assistance from a helper. 5-Set-up or Clean-up Assistance-helper sets up or cleans up; patient completes activity. [place] assists only prior to or following the activity. 4-Supervision or Touching Assistance-helper provides verbal cues and/or touching/steadying and/or contact guard assistance as patient completes activity. Assistance may be provided throughout the activity or intermittently. 3-Partial/Moderate Assistance-helper does LESS THAN HALF the effort. [place] lifts, holds or supports trunk or limbs, but provides less than half the effort. 2-Substantial/Maximal Assistance-helper does MORE THAN HALF the effort. [place] lifts or holds trunk or limbs and provides more than half the effort. 3-Cxnazvmck-bzfzka does ALL the effort. Patient does none of the effort to c omplete the activity. Or, the assistance of 2 or more helpers is required for the patient to complete the activity. If activity was not attempted, code reason: 7-Patient Refused. 9-Not Applicable-not attempted and the patient did not perform the activity before the current illness, exacerbation or injury. 10-Not Attempted due to Environmental Limitations-(lack of equipment, weather restraints, etc.). 88-Not Attempted due to Medical Conditions or Safety Concerns. Assessment/Plan Assessment and Plan Assess & Plan/Chief Complaint Assessment: Debility following partial colon resection Adenocarcinoma of cecum HTN h/o ICH 04/2019 DM HLP Plan: IRF protocol Monitor labs Lovenox 09/16/20: Monitor closely BP management (1) Debility (2) Adenocarcinoma of cecum (3) ICH (intracerebral hemorrhage) (4) Expressive aphasia (5) Hyperlipemia (6) Hypertension (7) Diabetes mellitus CONY COLLINS DO September 16, 2020 09:04
[2020-09-16] MEDS ORDERED: amLODIPine 10 MG (NORVASC) TAB PO ONE (09:45)
--- NOTE | 2020-09-16 11:51 | Physical Therapy Evaluation ---
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, 2020 Therapy Diagnosis Therapy Diagnosis: impaired mobility, balance, endurance Height/Weight Height (Feet): 5 Height (Inches): 6.00 Weight (Pounds): 196 Weight (Ounces): 0.0 Precautions Precautions/Isolations: Fall Prevention, Standard Precautions Referral Physician: Chuyita Hills DO Reason for Referral: Evaluation/Treatment Medical History Pertinent Medical History: HTN Reviewed History: Yes Social History Current Living Status: Alone Entry Into Home: Stairs With Railing PT Steps Into Home: 1 Prior Prior Level of Function SCALE: Activities may be completed with or without assistive devices. 4-Wcjgktimcn-aocmyvh completes the activity by him/herself with no assistance from a helper. 5-Set-up or Clean-up Assistance-helper sets up or cleans up; patient completes activity. [place] assists only prior to or following the activity. 4-Supervision or Touching Assistance-helper provides verbal cues and/or touching/steadying and/or contact guard assistance as patient completes activity. Assistance may be provided throughout the activity or intermittently. 3-Partial/Moderate Assistance-helper does LESS THAN HALF the effort. [place] lifts, holds or supports trunk or limbs, but provides less than half the effort. 2-Substantial/Maximal Assistance-helper does MORE THAN HALF the effort. [place] lifts or holds trunk or limbs and provides more than half the effort. 6-Inkfixebl-gfcszu does ALL the effort. Patient does none of the effort to complete the activity. Or, the assistance of 2 or more helpers is required for the patient to complete the activity. If activity was not attempted, code reason: 7-Patient Refused. 9-Not Applicable-not attempted and the patient did not perform the activity before the current illness, exacerbation or injury. 10-Not Attempted due to Environmental Limitations-(lack of equipment, weather restraints, etc.). 88-Not Attempted due to Medical Conditions or Safety Concerns. Bed Mobility: 6 Transfers (B,C,W/C): 6 Gait: 6 Stairs: 6 Indoor Mobility (Ambulation): Independent Stairs: Independent PT Evaluation-Current Subjective Patient in recliner pre tx, agrees to PT, has no pain. Pt/Family Goals to be independent at home Objective Patient Orientation: Person, Place, Situation Patient sometimes has difficulty communicating ROM/Strength ROM Lower Extremities WNL Strength Lower Extremities LLE (hip flexion 3+/5, knee flexion 5/5, knee extension 5/5, dorsiflexion 5/5), RLE (hip flexion 3+/5, knee flexion 5/5, knee extension 5/5, dorsiflexion 5/5) Sensory Vision: Wears Glasses Hearing: Impaired Sensation Right Lower Extremit: Intact Sensation Left Lower Extremity: Intact Transfers Roll Left & Right (QC): 6 Sit to Lying (QC): 6 Lying to Sitting/Side of Bed(Q: 6 Sit to Stand (QC): 4 Chair/Awb-nf-Qijmf Xfer(QC): 4 Toilet Transfer (QC): 4 Car Transfer (QC): 4 Patient performs bed mobility and supine <-> sit with independence, sit <-> stand and transfers with SBA, car transfer SBA. Patient occasionally needs cues for direction. Gait Does the Patient Walk?: Yes Mode of Locomotion: Walk Anticipated Mode of Locomotion: Walk Walk 10 feet (QC): 4 Walk 50 ft with 2 Turns(QC): 4 Walk 150 ft (QC): 4 Walking 10ft/uneven surface-QC: 4 Distance: 200', 150' Gait Assistive Device: None Comments/Gait Description Patient can ambulate 200' without an assistive device with SBA (including 50' with at least 2 turns of 90 degrees and 10' over an uneven surface), patient ambulated slowly, has bilateral flexed knees, but no LOB Wheelchair Training Does the Pt Use a Wheelchair?: No Wheel 50 ft with 2 turns (QC): 9 Wheel 150 ft (QC): 9 Stairs #of Steps: 12 1 Step (curb) (QC): 4 4 Steps (QC): 4 12 Steps (QC): 4 Patient can go up and down 12 steps using 2 handrails with SBA Balance Sitting Static: Normal Sitting Dynamic: Normal Standing Static: Normal Standing Dynamic: Good Picking up an Object (QC): 4 Treatment Patient performed a Case Balance Scale to assess balance and scored 52/56. She also performed the NuStep for 15 min on level 4. Assessment/Needs Patient has impaired mobility, endurance, balance. Only slightly impaired balance, doesn't need an assistive device. Patient in recliner post tx with nurse call, phone, tray, all needs met. Rehab Potential: Fair PT Short Term Goals Short Term Goals Time Frame: Sep 23, 2020 Roll Left & Right: 6 Sit to lyin Lying to sitting on side of be: 6 Sit to stand: 5 Chair/vdu-jg-ebvxe transfer: 5 Walk 10 feet: 5 Walk 50 feet with two turns: 5 Walk 150 feet: 5 PT Fci Goals [place] Measurer Goals PT [place] Measurer Goals Time Frame: Oct 07, 2020 Roll Left & Right (QC): 6 Sit to Lying (QC): 6 Lying-Sitting on Side/Bed(QC): 6 Sit to Stand (QC): 6 Chair/Tfp-le-Psbck Xfer(QC): 6 Toilet Transfer (QC): 6 Car Transfer (QC): 6 Does the Patient Walk: Yes Walk 10 feet (QC): 6 Walk 50ft with 2 Turns (QC): 6 Walk 150 ft (QC): 6 Walking 10ft on Uneven Surface: 6 1 Step (curb) (QC): 6 4 Steps (QC): 6 12 Steps (QC): 6 Picking up an Object (QC): 6 Wheel 50 feet with 2 turns (QC: 9 Wheel 150 feet: 9 PT Plan Problem List Problem List: Activity Tolerance, Functional Strength, Safety, Balance, Gait, Transfer Treatment/Plan Treatment Plan: Continue Plan of Care Treatment Plan: Education, Functional Activity Kapil, Functional Strength, Group Therapy, Gait, Safety, Therapeutic Exercise, Transfers Treatment Duration: Oct 07, 2020 Frequency: At least 5 of 7 days/Wk (IRF) Estimated Hrs Per Day: 1.5 hours per day Patient and/or Family Agrees t: Yes Safety Risks/Education Patient Education: Gait Training, Transfer Techniques, Steps, Correct Positioning, Safety Issues Teaching Recipient: Patient Teaching Methods: Demonstration, Discussion Response to Teaching: Reinforcement Needed Discharge Recommendations Plan Patient will perform bed mobility and transfer training, balance and endurance training, functional strengthening, stair training, gait training, and education, to improve functional mobility and independence at home. Therapy Discharge Recommendati: Scheduled Assistance, Home & Family Time/GCodes Time In: 1100 Time Out: 1200 Total Billed Treatment Time: 60 Total Billed Treatment 1 visit EVM 30' EX 15' NM 15' ROSHAN ZHANG PT September 16, 2020 11:51
--- NOTE | 2020-09-16 13:58 | Physical Therapy Daily Note ---
PT Daily Note-Current Subjective Patient in recliner pre tx, agrees to PT, has no complaints of pain. Appearance Patient in recliner post tx with nurse call, phone, tray, all needs met. Notified nurse to have patient be independent in her room now. Mental Status Patient Orientation: Person, Place, Situation Transfers SCALE: Activities may be completed with or without assistive devices. 4-Thnbmqamqj-hasicfm completes the activity by him/herself with no assistance from a helper. 5-Set-up or Clean-up Assistance-helper sets up or cleans up; patient completes activity. [place] assists only prior to or following the activity. 4-Supervision or Touching Assistance-helper provides verbal cues and/or touching/steadying and/or contact guard assistance as patient completes activity. Assistance may be provided throughout the activity or intermittently. 3-Partial/Moderate Assistance-helper does LESS THAN HALF the effort. [place] lifts, holds or supports trunk or limbs, but provides less than half the effort. 2-Substantial/Maximal Assistance-helper does MORE THAN HALF the effort. [place] lifts or holds trunk or limbs and provides more than half the effort. 9-Betvdskgz-lerovb does ALL the effort. Patient does none of the effort to complete the activity. Or, the assistance of 2 or more helpers is required for the patient to complete the activity. If activity was not attempted, code reason: 7-Patient Refused. 9-Not Applicable-not attempted and the patient did not perform the activity before the current illness, exacerbation or injury. 10-Not Attempted due to Environmental Limitations-(lack of equipment, weather restraints, etc.). 88-Not Attempted due to Medical Conditions or Safety Concerns. Sit to Stand (QC): 6 Chair/Hso-dk-Lmpkb Xfer(QC): 6 Gait Training Distance: 1200' Walk 10 feet (QC): 6 Walk 50 ft with 2 Turns(QC): 6 Walk 150 ft (QC): 6 Gait Assistive Device: None slow but steady ambulation Exercises NuStep Minutes: 10 NuStep Workload: 4 Treatments transfers, ambulation, functional strengthening Assessment Current Status: Fair Progress Patient is independent with ambulation and will be independent in her room now so she can go to the restroom by herself. PT Short Term Goals Short Term Goals Time Frame: Sep 23, 2020 Roll Left & Right: 6 Sit to lyin Lying to sitting on side of be: 6 Sit to stand: 5 Chair/xpr-em-paxzc transfer: 5 Walk 10 feet: 5 Walk 50 feet with two turns: 5 Walk 150 feet: 5 PT Intermediate Goals [employer] [place] Assistant Goals PT [employer] Assistant Goals Time Frame: Oct 07, 2020 Roll Left & Right (QC): 6 Sit to Lying (QC): 6 Lying-Sitting on Side/Bed(QC): 6 Sit to Stand (QC): 6 Chair/Oxe-mo-Qegip Xfer(QC): 6 Toilet Transfer (QC): 6 Car Transfer (QC): 6 Does the Patient Walk: Yes Walk 10 feet (QC): 6 Walk 50ft with 2 Turns (QC): 6 Walk 150 ft (QC): 6 Walking 10ft on Uneven Surface: 6 1 Step (curb) (QC): 6 4 Steps (QC): 6 12 Steps (QC): 6 Picking up an Object (QC): 6 Wheel 50 feet with 2 turns (QC: 9 Wheel 150 feet: 9 PT Plan Problem List Problem List: Activity Tolerance, Functional Strength, Safety, Balance, Gait, Transfer Treatment/Plan Treatment Plan: Continue Plan of Care Treatment Plan: Education, Functional Activity Kapil, Functional Strength, Group Therapy, Gait, Safety, Therapeutic Exercise, Transfers Treatment Duration: Oct 07, 2020 Frequency: At least 5 of 7 days/Wk (IRF) Estimated Hrs Per Day: 1.5 hours per day Patient and/or Family Agrees t: Yes Safety Risks/Education Patient Education: Gait Training, Transfer Techniques, Correct Positioning, Safety Issues Teaching Recipient: Patient Teaching Methods: Demonstration, Discussion Response to Teaching: Reinforcement Needed Time/GCodes Time In: 1300 Time Out: 1330 Total Billed Treatment Time: 30 Total Billed Treatment 1 visit EX 10' GT 20' ROSHAN ZHANG PT September 16, 2020 13:58
--- NOTE | 2020-09-16 14:03 | Occupational Therapy Eval ---
OT Evaluation-General/PLF Medical Diagnosis Admission Date September 15, 2020 at 16:20 Medical Diagnosis: Malignant Neoplasm of Cecum Onset Date: September 12, 2020 Therapy Diagnosis Therapy Diagnosis: Debility Height/Weight Height (Feet): 5 Height (Inches): 6.00 Weight (Pounds): 196 Weight (Ounces): 0.0 Precautions Precautions/Isolations: Fall Prevention, Standard Precautions Weight Bear Status Weight Bearing Restriction: Weight Bearing/Tolerated Referral Physician: Chuyita Hills DO Referral Reason: Activity Tolerance, Self Care, Evaluation/Treatment, Str engthening/ROM Medical History Pertinent Medical History: CVA, HTN Additional Medical History UTI Current History Pt. had partial colon surgery with resection s/p adenocarcinoma Reviewed History: Yes Social History Home: Single Level Current Living Status: Alone Entry Into Home: Stairs With Railing Steps Into Home: 1 ADL-Prior Level of Function SCALE: Activities may be completed with or without assistive devices. 4-Gzia[place]-gmhvoit completes the activity by him/herself with no assistance from a helper. 5-Set-up or Clean-up Assistance-helper sets up or cleans up; patient completes activity. [place] assists only prior to or following the activity. 4-Supervision or Touching Assistance-helper provides verbal cues and/or touching/steadying and/or contact guard assistance as patient completes activity. Assistance may be provided throughout the activity or intermittently. 3-Partial/Moderate Assistance-helper does LESS THAN HALF the effort. [place] lifts, holds or supports trunk or limbs, but provides less than half the effort. 2-Substantial/Maximal Assistance-helper does MORE THAN HALF the effort. [place] lifts or holds trunk or limbs and provides more than half the effort. 9-Dhxivabib-btkrjb does ALL the effort. Patient does none of the effort to complete the activity. Or, the assistance of 2 or more helpers is required for the patient to complete the activity. If activity was not attempted, code reason: 7-Patient Refused. 9-Not Applicable-not attempted and the patient did not perform the activity before the current illness, exacerbation or injury. 10-Not Attempted due to Environmental Limitations-(lack of equipment, weather restraints, etc.). 88-Not Attempted due to Medical Conditions or Safety Concerns. ADL PLOF Comments Pt. independent in home. She does not use an assistive device. 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 Pt. has very supportive family. They drive and take her places, check on her daily. It is unknown pt's previous cognitive level due to pt's previous history with CVA. Self Care: Independent Functional Cognition: Unknown DME/Equipment: Bath Chair, Grab Bars, Shower, Tall Toilet OT Current Status Subjective No pain reported. Mental Status/Objective Patient Orientation: Person, Place Pt. does require cues at times to stay on task. Does verbalize at times things that require cues for confirmation. Pt. will state and repeat the same thing at times multiple times. Current Glasses/Contacts: Yes Hearing Aids: Yes Hand Dominance: Right Upper Extremity ROM WFL Upper Extremity Strength WFL ADL-Treatment Eating (QC): 6 Oral Hygiene (QC): 6 Shower/Bathe Self (QC): 4 Upper Body Dressing (QC): 5 Lower Body Dressing (QC): 4 On/Off Footwear (QC): 5 Toileting Hygiene (QC): 6 Other Treatments Pt. tolerated all treatment well. Pt. able to complete ADLs with SBA/set up. Some tasks with Mod I. No LOB noted. Pt. ambulated with no Assistive device. Will perform higher level goals on rehab. Short term stay to return to baseline level. Education OT Patient Education: Correct positioning, Modified ADL techniques, Progress toward Goal/Update tx plan, Purpose of tx/functional activities, Reviewed precautions, Rehab process, Transfer techniques Teaching Recipient: Patient Teaching Methods: Demonstration, Discussion Response to Teaching: Verbalize Understanding, Return Demonstration, Reinforcement Needed OT Director Of Recruitment And Admissions Goals Fdc Goals Time Frame: Sep 23, 2020 Eating (QC): 6 Oral Hygiene (QC): 6 Toileting Hygiene (QC): 6 Shower/Bathe Self (QC): 6 Upper Body Dressing (QC): 6 Lower Body Dressing (QC): 6 On/Off Footwear (QC): 6 Pt. will perform 3 step kitchen task with no re-direction needed. Additional Goals: 1-Demonstrate ADL Tasks, 2-Verbalize Understanding, 3- ImproveStrength/Kapil 1=Demonstrate adherence to instructed precautions during ADL tasks. 2=Patient will verbalize/demonstrate understanding of assistive devices/modifications for ADL. 3=Patient will improve strength/tolerance for activity to enable patient to perform ADL's. OT Education/Plan Problem List/Assessment Assessment: Decreased Activ Tolerance, Impaired I ADL's Discharge Recommendations Plan/Recommendations: Continue POC Therapy Discharge Recommendati: Home & Family Treatment Plan/Plan of Care Treatment,Training & Education: Yes Patient would benefit from OT for education, treatment and training to promote independence in ADL's, mobility, safety and/or upper extremity function for ADL's. Plan of Care: ADL Retraining, Functional Mobility, UE Funct Exercise/Act Treatment Duration: Sep 23, 2020 Frequency: At least 5 of 7 days/Wk (IRF) Estimated Hrs Per Day: 1.5 hours per day Agreement: Yes Rehab Potential: Good Time/GCodes Start Time: 09:30 Stop Time: 10:30 Total Time Billed (hr/min): 60 Billed Treatment Time 1, EVH x 15minutes, ADL x 45minutes KETURAH STOVALL OT September 16, 2020 14:03
--- NOTE | 2020-09-16 15:17 | Occupational Ther Daily Note ---
OT Current Status-Daily Note Subjective No pain reported. Mental Status/Objective Patient Orientation: Person ADL-Treatment Therapy Code Descriptions/Definitions Functional [place] Measure: 0=Not Assessed/NA 4=Minimal Assistance 1=Total Assistance 5=Supervision or Setup 2=Maximal Assistance 6=Modified [place] 3=Moderate Assistance 7=Complete IndependenceSCALE: Activities may be completed with or without assistive devices. 0-Ppdbzhwwwj-snolvfw completes the activity by him/herself with no assistance from a helper. 5-Set-up or Clean-up Assistance-helper sets up or cleans up; patient completes activity. [place] assists only prior to or following the activity. 4-Supervision or Touching Assistance-helper provides verbal cues and/or touching/steadying and/or contact guard assistance as patient completes activity. Assistance may be provided throughout the activity or intermittently. 3-Partial/Moderate Assistance-helper does LESS THAN HALF the effort. [place] lifts, holds or supports trunk or limbs, but provides less than half the effort. 2-Substantial/Maximal Assistance-helper does MORE THAN HALF the effort. [place] lifts or holds trunk or limbs and provides more than half the effort. 1-Hfcwibote-rguwnq does ALL the effort. Patient does none of the effort to complete the activity. Or, the assistance of 2 or more helpers is required for the patient to complete the activity. If activity was not attempted, code reason: 7-Patient Refused. 9-Not Applicable-not attempted and the patient did not perform the activity before the current illness, exacerbation or injury. 10-Not Attempted due to Environmental Limitations-(lack of equipment, weather restraints, etc.). 88-Not Attempted due to Medical Conditions or Safety Concerns. Other Treatment Pt. agreeable to treatment. Pt. ambulates with OT. Does not use assistive device. Does not have LOB. Pt. receives phone call while ambulating, and takes phone out of pocket. Pt. opens call while ambulating and talks on phone with no issues. After call drops, she calls back while standing, with no LOB. After phone call, pt. sits with OT. Talks about her incision, and her need to be protective of it. Pt. indicates that she is ready to return home. OT asks her about cooking, taking care of her home. Pt. states that she completes simple meals for herself, and that she has a home housekeeping cleaner. Her family is supportive and will check on her if she needs it. Pt. indicates that her home is set up for her as she needs it. OT encourages pt. to stay to make sure she is feeling strong enough before discharge, since she just got to rehab facility. She verbalizes understanding. All needs met back in room. Education OT Patient Education: Correct positioning, Modified ADL techniques, Progress toward Goal/Update tx plan, Purpose of tx/functional activities, Reviewed precautions, Rehab process, Transfer techniques Teaching Recipient: Patient Teaching Methods: Demonstration, Discussion Response to Teaching: Verbalize Understanding, Return Demonstration, Reinforcement Needed OT Electronic Warfare Officer Goals [facility] Goals Time Frame: Sep 23, 2020 Eating (QC): 6 Oral Hygiene (QC): 6 Toileting Hygiene (QC): 6 Shower/Bathe Self (QC): 6 Upper Body Dressing (QC): 6 Lower Body Dressing (QC): 6 On/Off Footwear (QC): 6 Pt. will perform 3 step kitchen task with no re-direction needed. Additional Goals: 1-Demonstrate ADL Tasks, 2-Verbalize Understanding, 3-ImproveStrength/Kapil 1=Demonstrate adherence to instructed precautions during ADL tasks. 2=Patient will verbalize/demonstrate understanding of assistive devices/modifications for ADL. 3=Patient will improve strength/tolerance for activity to enable patient to perform ADL's. OT Education/Plan Discharge Recommendations Plan/Recommendations: Continue POC Treatment Plan/Plan of Care Patient would benefit from OT for education, treatment and training to promote independence in ADL's, mobility, safety and/or upper extremity function for ADL's. Plan of Care: ADL Retraining, Functional Mobility, UE Funct Exercise/Act Treatment Duration: Sep 23, 2020 Frequency: At least 5 of 7 days/Wk (IRF) Estimated Hrs Per Day: 1.5 hours per day Agreement: Yes Rehab Potential: Good Time/GCodes Start Time: 13:30 Stop Time: 14:00 Total Time Billed (hr/min): 30 Billed Treatment Time 1, FA x 30minutes KETURAH STOVALL OT September 16, 2020 15:17
[2020-09-16] MEDS: ACETAMINOPHEN 500 MG TAB (TYLENOL) PO PRN ×2 (17:06→22:53)
[2020-09-16 20:00] VITALS: BP 135/64
[2020-09-16] MEDS: ATORVASTATIN 10 MG TABLET PO SCH (21:07)
--- NOTE | 2020-09-17 05:36 | Individualized Plan of Care ---
Individualized Plan of Care Rehab Nursing IPOC Order Admission Date September 15, 2020 at 16:20 Current Orders Orders Follow-Up Appointment (09/15/20 15:07) Lifting Restrictions (09/15/20 15:20) Admission Arrival Bed Request (09/15/20 16:24) Admission Order(Inpt,Obs,Sdc) (09/15/20 16:36) Vital Signs: Per Unit Policy ( 08,16,00 (09/15/20 16:36) Animal Control Specialist-Inpt Rehab Con (09/15/20 16:36) Rehab Nursing Orders-Ipoc (09/15/20 16:36) Physical Therapy Rehab Orders (09/15/20 16:36) Occupational Therapy Rehab Ord (09/15/20 16:36) Speech Therapy Rehab Orders (09/15/20 16:36) Cbc With Automated Diff (09/16/20 06:00) Comprehensive Metabolic Panel (09/16/20 06:00) Precautions (Aru) (09/15/20 16:36) Weekly Weight WEEK (09/15/20 16:36) Rehab-Intensity Of Therapy (09/15/20 16:36) Initiate Admission Nursing Pro .admission (09/15/20 16:36) Acetaminophen Tablet/Caplet (Tylenol T (09/15/20 16:45) Alprazolam Tablet (Xanax Tablet) (09/15/20 16:45) Calcium Carbonate Chew Tablet (Antacid C (09/15/20 16:45) Diphenhydramine Tablet (Benadryl Tablet) (09/15/20 16:45) Docusate Sodium Capsule (Colace Capsule) (09/15/20 21:00) Docusate Sodium Capsule (Colace Capsule) (09/15/20 16:45) Bisacodyl Suppository (Dulcolax Supposit (09/15/20 16:45) Lactulose Oral Solution (Enulose Oral So (09/15/20 16:45) Na Phos/Na Biphos Enema (Fleet Enema Joby (09/15/20 16:45) Guaifenesin/Codeine Syrup (Robitussin Ac (09/15/20 16:45) Hydrocodone/Apap 5/325 Tablet (Lortab 5 (09/15/20 16:45) Loperamide Tablet (Imodium Tablet) (09/15/20 16:45) Melatonin Tablet (Melatonin Tablet) (09/15/20 16:45) Polyethylene Glycol Powder Pkt (Miralax (09/15/20 21:00) Ondansetron Oral Dissolve Tab (Zofran (09/15/20 16:45) Senna S Tablet (Senokot S Tablet) (09/15/20 21:00) Initiate Admission Nursing Pro .admission (09/15/20 16:36) Acetaminophen Tablet (Tylenol Tablet) (09/15/20 16:45) Amlodipine Tablet (Norvasc Tablet) (09/16/20 09:00) Rx-Tramadol Hcl (Rx-Ultram) (09/15/20 16:45) (Nf) Calcium Carbonate/Vitamin D3 (Os-Ca (09/16/20 09:00) (Nf) Escitalopram Oxalate (09/15/20 21:00) (Nf) Lactobacillus Rhamnosus Gg (Culture (09/16/20 09:00) (Nf) Moexipril Hcl (09/16/20 09:00) (Nf) Pravastatin Sodium (09/15/20 21:00) (Nf) Vitamin B Complex (09/16/20 09:00) General/Regular (09/15/20 Dinner) Calcium Carbonate W/Vitamin D3 (Calcarb (09/16/20 08:00) (Nf) Moexipril Hcl (09/16/20 06:00) Citalopram Tablet (Celexa Tablet) (09/15/20 21:00) Lactobacillus Acidophilus Cap (Acidophil (09/16/20 09:00) Therapeutic Multivitamin Tab (Vitamins, (09/16/20 07:00) Atorvastatin (Lipitor Tablet) (09/15/20 21:00) Lisinopril Tablet (Zestril Tablet) (09/16/20 06:00) Enoxaparin Injection (Lovenox Injection) (09/16/20 09:00) Tramadol Tablet (Ultram Tablet) (09/15/20 17:15) Amlodipine Tablet (Norvasc Tablet) (09/16/20 09:45) Patient Visit (09/16/20 ) Speech Sound Lang Comp (09/16/20 ) Treat. Speech/Lang/Voice (09/16/20 ) Patient Visit (09/16/20 ) Pt Eval Moderate Complexity (09/16/20 ) Ex Neuromuscular, Ea 15 Min (09/16/20 ) Exercise Therap, Ea 15 Min (09/16/20 ) Gait Training, Ea 15 Min (09/16/20 ) Rehab Nursing Orders: Ongoing Assess. of Cognitive Status, Ongoing Assess. of Function Status, Bladder Management, Bladder Scan, Bladder Training, Bowel Management, Bowel Training, Disease Management & Educaiton, DVT Prophylaxis, Fall Prevention, Fluid/Electrolyte/Nutrition Mgmt, Infection Prevention, Medication Management & Education, Management of Risks & Complications, Nutrition Management, Pain Management, Patient/Family Support, Safety Management Intensity of Therapy to be met Patient to be seen: Min.3h per day/5 of 7d PT IPOC Problem List: Activity Tolerance, Functional Strength, Safety, Balance, Gait, Transfer Treatment Plan: Continue Plan of Care Education, Functional Activity Kapil, Functional Strength, Group Therapy, Gait, Safety, Therapeutic Exercise, Transfers Treatment Duration: Oct 07, 2020 Frequency: At least 5 of 7 days/Wk (IRF) Estimated Hrs Per Day: 1.5 hours per day OT IPOC Problems: Decreased Activ Tolerance, Impaired I ADL's OT Treatment, Training and Edu: Yes Plan of Care: ADL Retraining, Functional Mobility, UE Funct Exercise/Act Treatment Duration: Sep 23, 2020 Frequency: At least 5 of 7 days/Wk (IRF) Estimated Hrs Per Day: 1.[address] IPOC Speech Therapy Treatment Plan: Continue Plan of Care Treatment Duration: Sep 26, 2020 Frequency: 4 times per week (Patient will receive skilled ST 4-5x per week) Estimated Hrs Per Day: .5 hour per day Animal Control Specialist/Case Mgmt Animal Control Specialist/Case Managemen: Discharge Planning Dietitian/Merchandising Team Lead Dietitian/Merchandising Team Lead to monitor nutritional status and make changes and/or recommendations as needed and work with speech pathology on dietary upgrades as the occur. Physician IPOC Medical Issues being managed closely and that require the 24 hour availability of a physician: Recent partial colon resection due to cancer and the h/o hemorrhagic CVA with expressive aphasia will need close monitoring for decompensation Medical Issues: Bowel/Bladder Function, DVT Prophylaxis, Falls Precautions, Fluid/Electrolyte/Nutrition Balance, Infection Protection, Pain Management, Wound Care Brief Synthesis of Preadmission Screen, Post-Admission Evaluation, and Therapy Evaluations: PT OT will focus on regaining strength while focusing on fall risk prevention along with ST for cognition improvement Medical Prognosis: Good Anticipated Length of Stay: 7 days CONY COLLINS DO September 17, 2020 05:36
--- NOTE | 2020-09-17 05:44 | PM&R Progress Note ---
Subjective HPI/CC On Admission Date Seen by Provider: September 17, 2020 Time Seen by Provider: 10:30 Subjective/Events-last exam 09/17/20: Pt doing really well Pt ready for DC tomorrow Brother in law and she needs to go to the Incontinent of bowel yesterday but now it reset her and she is doing much better now 09/16/20: Pt doing really well Able to communicate really well Bowels are moving BP was a little bit elevated today, she had missed several days of her BP medication while recovering from surgery at BP of 190 prompted an additional dose of Amlodipine of 5 mg Hgb is stable at 10.2 Review of Systems General: Fatigue, Malaise Neurological: Weakness Objective Exam Vital Signs Vital Signs Date Time Temp Pulse Resp B/P (MAP) Pulse Ox O2 Delivery O2 Flow Rate FiO2 09/17/20 20:54 Room Air 09/17/20 20:00 36.4 65 20 156/78 (104) 98 Capillary Refill : General Appearance: No Apparent Distress, WD/WN, Chronically ill HEENT: PERRL/EOMI, Normal ENT Inspection, Pharynx Normal Neck: Full Range of Motion, Normal Inspection, Non Tender, Supple, Carotid Bruit Respiratory: Chest Non Tender, Lungs Clear, Normal Breath Sounds, No Accessory Muscle Use, No Respiratory Distress Cardiovascular: Regular Rate, Rhythm, No Edema, No Gallop, No JVD, No Murmur, Normal Peripheral Pulses Gastrointestinal: Normal Bowel Sounds, No Organomegaly, No Pulsatile Mass, Non Tender, Soft Back: Normal Inspection, No CVA Tenderness, No Vertebral Tenderness Extremity: Normal Capillary Refill, Normal Inspection, Normal Range of Motion, Non Tender, No Calf Tenderness, No Pedal Edema Neurologic/Psychiatric: Alert, Oriented x3, Normal Mood/Affect, Abnormal Gait, Motor Weakness (generalized lower extremities) Skin: Normal Color, Warm/Dry Lymphatic: No Adenopathy Results/Procedures Lab Patient resulted labs reviewed. FIM Transfers Therapy Code Descriptions/Definitions Functional [place] Measure: 0=Not Assessed/NA 4=Minimal Assistance 1=Total Assistance 5=Supervision or Setup 2=Maximal Assistance 6=Modified [place] 3=Moderate Assistance 7=Complete IndependenceSCALE: Activities may be completed with or without assistive devices. 3-Cadwgbslux-xdqctor completes the activity by him/herself with no assistance from a helper. 5-Set-up or Clean-up Assistance-helper sets up or cleans up; patient completes activity. [place] assists only prior to or following the activity. 4-Supervision or Touching Assistance-helper provides verbal cues and/or touching/steadying and/or contact guard assistance as patient completes activity. Assistance may be provided throughout the activity or intermittently. 3-Partial/Moderate Assistance-helper does LESS THAN HALF the effort. [place] lifts, holds or supports trunk or limbs, but provides less than half the effort. 2-Substantial/Maximal Assistance-helper does MORE THAN HALF the effort. [place] lifts or holds trunk or limbs and provides more than half the effort. 3-Wmtadtwrt-brxkjb does ALL the effort. Patient does none of the effort to complete the activity. Or, the assistance of 2 or more helpers is required for the patient to complete the activity. If activity was not attempted, code reason: 7-Patient Refused. 9-Not Applicable-not attempted and the patient did not perform the activity before the current illness, exacerbation or injury. 10-Not Attempted due to Environmental Limitations-(lack of equipment, weather restraints, etc.). 88-Not Attempted due to Medical Conditions or Safety Concerns. Roll Left to Right (QC): 6 Sit to Lying (QC): 6 Sit to Stand (QC): 6 Chair/Sre-br-Sueeu Xfer(QC): 6 Car Transfer (QC): 4 Gait Training Does the Patient Walk?: Yes Distance: 1200' Walk 10 feet (QC): 6 Walk 50 ft with 2 Turns(QC): 6 Walk 150 ft (QC): 6 Walking 10ft/uneven surface-QC: 4 Gait Assistive Device: None Wheelchair Training Does the Pt Use a Wheelchair?: No Wheel 50 ft with 2 turns (QC): 9 Wheel 150 ft (QC): 9 Type of Wheelchair: N/A Stair Training #of Steps: 12 1 Step (curb) (QC): 4 4 Steps (QC): 4 12 Steps (QC): 4 Balance Picking up an Object (QC): 4 ADL-Treatment Eating (QC): 6 Oral Hygiene (QC): 6 Shower/Bathe Self (QC): 4 Upper Body Dressing (QC): 5 Lower Body Dressing (QC): 4 On/Off Footwear (QC): 5 Toileting Hygiene (QC): 6 Assessment/Plan Assessment and Plan Assess & Plan/Chief Complaint Assessment: Debility following partial colon resection Adenocarcinoma of cecum HTN h/o ICH 04/2019 DM HLP Plan: IRF protocol Monitor labs Lovenox 09/16/20: Monitor closely BP management 09/17/20: Monitor closely DC tomorrow (1) Debility (2) Adenocarcinoma of cecum (3) ICH (intracerebral hemorrhage) (4) Expressive aphasia (5) Hyperlipemia (6) Hypertension (7) Diabetes mellitus CONY COLLINS DO September 17, 2020 05:44
[2020-09-17 05:58] VITALS: BP 171/77
[2020-09-17] MEDS: lisINopril 20 MG (PRINIVIL) TABLET PO SCH (06:02)
[2020-09-17] MEDS: MULTIVIT W/MINERALS TAB (THERAGRAN M) PO SCH (06:51)
[2020-09-17] MEDS: LACTOBACILLUS ACIDOPHILUS (PROBIOTIC) CAPSULE PO SCH (07:56)
[2020-09-17] MEDS: CALCIUM CARB + VIT D 600 MG (CALCARB + D) TAB PO SCH (07:56)
[2020-09-17] MEDS: DOCUSATE SODIUM 100 MG (COLACE) CAP PO SCH ×2 (07:57→20:53)
[2020-09-17] MEDS: SENNA W/DOCUSATE (SENOKOT S) TABLET PO SCH ×2 (07:57→20:53)
[2020-09-17] MEDS: polyethylene glycoL POWDER 17 GM (MIRALAX) PACK PO SCH ×2 (07:57→20:53)
[2020-09-17] MEDS: ENOXAPARIN 40 MG/0.4 ML (LOVENOX) SYR SC SCH (07:59)
[2020-09-17 08:00] VITALS: BP 138/64
[2020-09-17] MEDS: amLODIPine 10 MG (NORVASC) TAB PO SCH (08:01)
--- NOTE | 2020-09-17 08:47 | Speech Therapy Daily Note ---
Speech Daily Progress Note Subjective Date Seen by Provider: September 17, 2020 Time Seen by Provider: 00:30 Patient was sitting up in her recliner. She states her brother in law passed last evening and is in hopes she is able to get out soon. Objective Patient completed a series of hidden pictures with naming the items with 80% given min to mod cues. Assessment Assessment Current Status: Good Progress Treatment Plan Continue Plan of Care Speech Short Term Goals Short Term Goals Short Term Goals 1) Patient will complete recall of information tasks related related to her needs at 75% or greater with minimal cues. 2) Patient will demonstrate the ability to stay on topic for 5 minutes or greater with 75% or greater with minimal cues. 3) Patient will complete word finding tasks with 75% accuracy or greater with minimal cues. Speech Group Home Goals Group Home Goals Patient will improve cognitive-communication abilities in order to require decreased assist with ADL's. Speech-Plan Patient/Family Goals Patient/Family Goals: Patient plans on returning to her home where she lives alone. She has an extended very involved family. Treatment Plan Speech Therapy Treatment Plan: Continue Plan of Care Treatment Duration: Sep 26, 2020 Frequency: 4 times per week (Patient will receive skilled ST 4-5x per week) Estimated Hrs Per Day: .5 hour per day Rehab Potential: Good Barriers to Learning: Patient's brain bleed in 2019, age Pt/Family Agrees to Plan: Yes Safety Risks/Education Teaching Recipient: Patient Teaching Methods: Demonstration, Discussion Response to Teaching: Verbalize Understanding, Return Demonstration Education Topics Provided: Continued safety within her room and upon her return home Time Speech Therapy Time In: 08:30 Speech Therapy Time Out: 09:00 Total Billed Time: 30 Billed Treatment Time 1[address] September 17, 2020 08:47
--- NOTE | 2020-09-17 11:03 | Physical Therapy Daily Note ---
PT Daily Note-Current Subjective Pt sitting in recliner upon arrival. Pt agrees to PT tx. Pain Numeric Pain Scale: 0-No Pain Location: No Pain Reported Mental Status Patient Orientation: Normal For Age Transfers SCALE: Activities may be completed with or without assistive devices. 8-Tfwoldpxhb-ekpwwpi completes the activity by him/herself with no assistance from a helper. 5-Set-up or Clean-up Assistance-helper sets up or cleans up; patient completes activity. [place] assists only prior to or following the activity. 4-Supervision or Touching Assistance-helper provides verbal cues and/or touching/steadying and/or contact guard assistance as patient completes activity. Assistance may be provided throughout the activity or intermittently. 3-Partial/Moderate Assistance-helper does LESS THAN HALF the effort. [place] lifts, holds or supports trunk or limbs, but provides less than half the effort. 2-Substantial/Maximal Assistance-helper does MORE THAN HALF the effort. [place] lifts or holds trunk or limbs and provides more than half the effort. 6-Jidgqavyi-zicest does ALL the effort. Patient does none of the effort to complete the activity. Or, the assistance of 2 or more helpers is required for the patient to complete the activity. If activity was not attempted, code reason: 7-Patient Refused. 9-Not Applicable-not attempted and the patient did not perform the activity before the current illness, exacerbation or injury. 10-Not Attempted due to Environmental Limitations-(lack of equipment, weather restraints, etc.). 88-Not Attempted due to Medical Conditions or Safety Concerns. Roll Left & Right (QC): 6 Sit to Lying (QC): 6 Lying to Sitting/Side of Bed(Q: 6 Sit to Stand (QC): 6 Chair/Zhv-wn-Zkisu Xfer(QC): 6 Toilet Transfer (QC): 6 Car Transfer (QC): 6 Gait Training Does the Patient Walk?: Yes Distance: 300'+ x2 Walk 10 feet (QC): 6 Walk 50 ft with 2 Turns(QC): 6 Walk 150 ft (QC): 6 Walking 10ft/uneven surface-QC: 6 Gait Persons Needed: 1 Gait Assistive Device: None Wheelchair Training Does the Pt Use a Wheelchair?: No Stair Training Stair Training: Handrails/: 2 handrails 1 Step (curb) (QC): 6 4 Steps (QC): 6 12 Steps (QC): 6 Stairs: Pattern: Reciprocal Balance Picking up an Object (QC): 6 Exercises NuStep Minutes: 15 NuStep Workload: 4 Treatments Pt completed gait training, stair training, bed mobility, transfers and NuStep. Pt sitting in recliner w/ bedside table and call light w/in reach and all needs met at end of tx. Assessment Current Status: Excellent Progress Pt extremely high functioning. Pt informs CAR HIKER that pt is fearful of incision being tore/ripped open and that pt is being mindful of all activities. PT Short Term Goals Short Term Goals Time Frame: Sep 23, 2020 Roll Left & Right: 6 Sit to lyin Lying to sitting on side of be: 6 Sit to stand: 5 Chair/ctp-dm-npblk transfer: 5 Walk 10 feet: 5 Walk 50 feet with two turns: 5 Walk 150 feet: 5 PT Well Drill Operator Goals Halfway Goals PT Halfway Goals Time Frame: Oct 07, 2020 Roll Left & Right (QC): 6 Sit to Lying (QC): 6 Lying-Sitting on Side/Bed(QC): 6 Sit to Stand (QC): 6 Chair/Mvv-ni-Ivdva Xfer(QC): 6 Toilet Transfer (QC): 6 Car Transfer (QC): 6 Does the Patient Walk: Yes Walk 10 feet (QC): 6 Walk 50ft with 2 Turns (QC): 6 Walk 150 ft (QC): 6 Walking 10ft on Uneven Surface: 6 1 Step (curb) (QC): 6 4 Steps (QC): 6 12 Steps (QC): 6 Picking up an Object (QC): 6 Wheel 50 feet with 2 turns (QC: 9 Wheel 150 feet: 9 PT Plan Treatment/Plan Treatment Plan: Discontinue PT, goals met Treatment Plan: Education, Functional Activity Kapil, Functional Strength, Group Therapy, Gait, Safety, Therapeutic Exercise, Transfers Treatment Duration: Oct 07, 2020 Frequency: At least 5 of 7 days/Wk (IRF) Estimated Hrs Per Day: 1.5 hours per day Patient and/or Family Agrees t: Yes Safety Risks/Education Patient Education: Gait Training, Correct Positioning, Safety Issues Teaching Recipient: Patient Teaching Methods: Discussion Response to Teaching: Verbalize Understanding Time/GCodes Time In: 1000 Time Out: 1100 Total Billed Treatment Time: 60 Total Billed Treatment , Ex (15m), GT x2 (30m), FA (15m) NATASHA JORDAN CAR HIKER September 17, 2020 11:03
--- NOTE | 2020-09-17 11:28 | Occupational Ther Daily Note ---
OT Current Status-Daily Note Subjective No pain reported. Mental Status/Objective Patient Orientation: Person, Place ADL-Treatment Therapy Code Descriptions/Definitions Functional [place] Measure: 0=Not Assessed/NA 4=Minimal Assistance 1=Total Assistance 5=Supervision or Setup 2=Maximal Assistance 6=Modified [place] 3=Moderate Assistance 7=Complete IndependenceSCALE: Activities may be completed with or without assistive devices. 8-Pehbqqpvpy-aemolfg completes the activity by him/herself with no assistance from a helper. 5-Set-up or Clean-up Assistance-helper sets up or cleans up; patient completes activity. [place] assists only prior to or following the activity. 4-Supervision or Touching Assistance-helper provides verbal cues and/or touching/steadying and/or contact guard assistance as patient completes activity. Assistance may be provided throughout the activity or intermittently. 3-Partial/Moderate Assistance-helper does LESS THAN HALF the effort. [place] lifts, holds or supports trunk or limbs, but provides less than half the effort. 2-Substantial/Maximal Assistance-helper does MORE THAN HALF the effort. [place] lifts or holds trunk or limbs and provides more than half the effort. 8-Cfvmuxlkr-fsjqjw does ALL the effort. Patient does none of the effort to complete the activity. Or, the assistance of 2 or more helpers is required for the patient to complete the activity. If activity was not attempted, code reason: 7-Patient Refused. 9-Not Applicable-not attempted and the patient did not perform the activity before the current illness, exacerbation or injury. 10-Not Attempted due to Environmental Limitations-(lack of equipment, weather restraints, etc.). 88-Not Attempted due to Medical Conditions or Safety Concerns. Eating (QC): 6 Oral Hygiene (QC): 6 Shower/Bathe Self (QC): 4 Upper Body Dressing (QC): 6 Lower Body Dressing (QC): 6 (With safety concerns.) On/Off Footwear: 6 Toileting Hygiene (QC): 6 Toilet Transfer (QC): 6 Other Treatment Pt. agrees to work with OT. Pt. is able to complete ADL skills with Mod I, only with safety concerns due to cues for sequencing at times. Pt. will ask what she should do next. She demonstrates no LOB. All needs met back in chair. Education OT Patient Education: Correct positioning, Modified ADL techniques, Progress toward Goal/Update tx plan, Purpose of tx/functional activities, Reviewed precautions, Transfer techniques Teaching Recipient: Patient Teaching Methods: Demonstration, Discussion Response to Teaching: Verbalize Understanding, Return Demonstration OT Turbine Technician Goals Turbine Technician Goals Time Frame: Sep 23, 2020 Eating (QC): 6 Oral Hygiene (QC): 6 Toileting Hygiene (QC): 6 Shower/Bathe Self (QC): 6 Upper Body Dressing (QC): 6 Lower Body Dressing (QC): 6 On/Off Footwear (QC): 6 Pt. will perform 3 step kitchen task with no re-direction needed. Additional Goals: 1-Demonstrate ADL Tasks, 2-Verbalize Understanding, 3- ImproveStrength/[place]ap[place] 1=Demonstrate adherence to instructed precautions during ADL tasks. 2=Patient will verbalize/demonstrate understanding of assistive devices/modifications for ADL. 3=Patient will improve strength/tolerance for activity to enable patient to perform ADL's. OT Education/Plan Problem List/Assessment Assessment: Decreased Activ Tolerance Discharge Recommendations Plan/Recommendations: Continue POC Therapy Discharge Recommendati: Home & Family Treatment Plan/Plan of Care Treatment,Training & Education: Yes Patient would benefit from OT for education, treatment and training to promote independence in ADL's, mobility, safety and/or upper extremity function for ADL's. Plan of Care: ADL Retraining, Functional Mobility, UE Funct Exercise/Act Treatment Duration: Sep 23, 2020 Frequency: At least 5 of 7 days/Wk (IRF) Estimated Hrs Per Day: 1.5 hours per day Agreement: Yes Rehab Potential: Good Time/GCodes Start Time: 09:00 Stop Time: 10:00 Total Time Billed (hr/min): 60 Billed Treatment Time 1, ADL x 60minutes KETURAH STOVALL OT September 17, 2020 11:28
--- NOTE | 2020-09-17 14:21 | Therapy Group Daily Note ---
Therapy Daily Group Note Patient Education Topic Other List Below (memory) Exercises LE Seated Exercise, UE Exercise Session Ratio (pt:therapist): 3:1 Goal of Session: Memory Strategies, UE/LE Strengthing Goal Met for this Session: Yes Pt Benefit of Group: Contributions to Others, F/U Use of Strategies @Home, Increased Functional Safety, Increased Functional Strength, Improved Cognition, Recognition of Peers, Socialization Other/Notes Pt ambulated to OT/PT group in [facility]. Group consisted of introductions (name, place living, favorite restaurant), socialization, seated B UE/LE exercises, memory strategies and memory activity. Pt introduced self appropriately and actively listened to peers. Pt able to complete B UE/LE seated exercises well. Pt participated in memory activity and was able to match 3/4 memory pics. Pt acknowledged understanding of educational topic by giving own strategies and examples. After session, pt sitting in recliner with call light/phone in reach. All needs met in room. Start Time: 13:00 Stop Time: 14:15 Total Billed Treatment Time: 75 Total Billed Treatment 1-JANET HERNANDEZ September 17, 2020 14:21
[2020-09-17 20:00] VITALS: BP 156/78
[2020-09-17] MEDS: ATORVASTATIN 10 MG TABLET PO SCH (20:48)
[2020-09-17] MEDS: MELATONIN 3 MG TABLET PO PRN (20:48)
[2020-09-18] MEDS: ACETAMINOPHEN 500 MG TAB (TYLENOL) PO PRN (02:14)
[2020-09-18] MEDS ORDERED: LISI20TA26 PO (05:51)
[2020-09-18] MEDS ORDERED: TRM50T PO (05:51)
--- NOTE | 2020-09-18 05:58 | Discharge Summary ---
Diagnosis/Chief Complaint Date of Admission September 15, 2020 at 16:20 Date of Discharge Discharge Date: September 18, 2020 Discharge Diagnosis Assessment: Debility following partial colon resection Adenocarcinoma of cecum HTN h/o ICH 04/2019 DM HLP Plan: IRF protocol Monitor labs Lovenox 09/16/20: Monitor closely BP management 09/17/20: Monitor closely DC tomorrow (1) Debility (2) Adenocarcinoma of cecum (3) ICH (intracerebral hemorrhage) (4) Expressive aphasia (5) Hyperlipemia (6) Hypertension (7) Diabetes mellitus Discharge Summary Discharge Physical Examination Allergies: Uncoded Allergies: ERTHROMYCIN (Allergy, Unknown, 05/08/12) Vitals & I&Os Vital Signs Date Time Temp Pulse Resp B/P (MAP) Pulse Ox O2 Delivery O2 Flow Rate FiO2 09/18/20 11:09 36.2 66 14 132/62 96 Room Air General Appearance: Alert, Oriented X3, Cooperative Respiratory: Clear to Auscultation Cardiovascular: Regular Rate Neuro: Normal Gait, Normal Speech, Strength at 5/5 X4 Ext Psych/Mental Status: Mental Status NL Hospital Course Was the Problem List Reviewed?: Yes Standard IRF course although shorter than anticipated since she recovered so quickly. Patient had partial colon resection at due to cecal mass cancer and had no complications while inpatient at . DUe to previous hemorrhagic CVA the decision was made to move to IRF to finish recovery. Patient dramatically improved and while BP still remained elevated due to no BP meds for several days at it was improved. Labs were all stable and the decision was made to DC home. Labs (last 24 hrs) Laboratory Tests 09/16/20 06:20: White Blood Count 6.1, Red Blood Count 4.04, Hemoglobin 10.2L, Hematocrit 33L, Mean Corpuscular Volume 82, Mean Corpuscular Hemoglobin 25, Mean Corpuscular Hemoglobin Concent 31L, Red Cell Distribution Width 14.0, Platelet Count 183, Mean Platelet Volume 10.3, Immature Granulocyte % (Auto) 0, Neutrophils (%) (Auto) 62, Lymphocytes (%) (Auto) 28, Monocytes (%) (Auto) 6, Eosinophils (%) (Auto) 3, Basophils (%) (Auto) 0, Neutrophils # (Auto) 3.8, Lymphocytes # (Auto) 1.7, Monocytes # (Auto) 0.4, Eosinophils # (Auto) 0.2, Basophils # (Auto) 0.0, I mmature Granulocyte # (Auto) 0.0, Sodium Level 143, Potassium Level 4.3, Chloride Level 109H, Carbon Dioxide Level 27, Anion Gap 7, Blood Urea Nitrogen 17, Creatinine 0.72, Estimat Glomerular Filtration Rate > 60, BUN/Creatinine Ratio 24, Glucose Level 131H, Calcium Level 9.1, Corrected Calcium 9.8, Total Bilirubin 0.4, Aspartate Amino Transf (AST/SGOT) 24, Alanine Aminotransferase (ALT/SGPT) 10, Alkaline Phosphatase 51, Total Protein 5.4L, Albumin 3.1L Pending Labs Laboratory Tests 09/16/20 06:20: White Blood Count 6.1, Red Blood Count 4.04, Hemoglobin 10.2, Hematocrit 33, Mean Corpuscular Volume 82, Mean Corpuscular Hemoglobin 25, Mean Corpuscular Hemoglobin Concent 31, Red Cell Distribution Width 14.0, Platelet Count 183, Mean Platelet Volume 10.3, Immature Granulocyte % (Auto) 0, Neutrophils (%) (Auto) 62, Lymphocytes (%) (Auto) 28, Monocytes (%) (Auto) 6, Eosinophils (%) (Auto) 3, Basophils (%) (Auto) 0, Neutrophils # (Auto) 3.8, Lymphocytes # (Auto) 1.7, Monocytes # (Auto) 0.4, Eosinophils # (Auto) 0.2, Basophils # (Auto) 0.0, Immature Granulocyte # (Auto) 0.0, Sodium Level 143, Potassium Level 4.3, Chloride Level 109, Carbon Dioxide Level 27, Anion Gap 7, Blood Urea Nitrogen 17, Creatinine 0.72, Estimat Glomerular Filtration Rate > 60, BUN/Creatinine Rat io 24, Glucose Level 131, Calcium Level 9.1, Corrected Calcium 9.8, Total Bilirubin 0.4, Aspartate Amino Transf (AST/SGOT) 24, Alanine Aminotransferase (ALT/SGPT) 10, Alkaline Phosphatase 51, Total Protein 5.4, Albumin 3.1 Discharge Home Medications: Active Scripts Active Tramadol HCl 50 Mg Tablet 50 Mg PO Q6H PRN Lisinopril 20 Mg Tablet 20 Mg PO DAILY@0600 Reported Vitamin B Complex 1 Each Tablet 1 Each PO DAILY Pravastatin Sodium 40 Mg Tablet 40 Mg PO HS Moexipril HCl 15 Mg Tablet 15 Mg PO DAILY TAKES ON AN EMPTY STOMACH Culturelle (Lactobacillus Rhamnosus GG) 1 Each Cap.sprink 1 Each PO DAILY Os-Atul 500+D3 Caplet (Calcium Carbonate/Vitamin D3) 1 Each Tablet 1 Each PO DAILY Amlodipine Besylate 10 Mg Tablet 10 Mg PO 1200 Tylenol Extra Strength (Acetaminophen) 500 Mg Tablet 1,000 Mg PO Q6H PRN Escitalopram Oxalate 20 Mg Tablet 20 Mg PO HS Instructions to patient/family Please see electronic discharge instructions given to patient. Diagnosis/Problems Diagnosis/Problems (1) Debility (2) Adenocarcinoma of cecum (3) ICH (intracerebral hemorrhage) (4) Expressive aphasia (5) Hyperlipemia (6) Hypertension (7) Diabetes mellitus CONY COLLINS DO September 18, 2020 05:58
[2020-09-18 06:03] VITALS: BP 169/79
[2020-09-18] MEDS: lisINopril 20 MG (PRINIVIL) TABLET PO SCH (06:05)
[2020-09-18] MEDS: MULTIVIT W/MINERALS TAB (THERAGRAN M) PO SCH (06:45)
[2020-09-18] MEDS: DOCUSATE SODIUM 100 MG (COLACE) CAP PO SCH (07:38)
[2020-09-18] MEDS: SENNA W/DOCUSATE (SENOKOT S) TABLET PO SCH (07:39)
[2020-09-18] MEDS: polyethylene glycoL POWDER 17 GM (MIRALAX) PACK PO SCH (07:39)
[2020-09-18 08:00] VITALS: BP 132/62
--- NOTE | 2020-09-18 09:18 | Therapy Team Discharge Summary ---
Therapy Discharge Summary Discharge Recommendations Date of Discharge 09-18-20 Therapy D/C Recommendations: Home w/ Family Support Occupational Therapy Pt. seen on this unit to increase overall strength and independence with daily skills. Pt. has met all goals with some safety concerns for sequencing. Pt. discharging home at Mod I level with no assistive device and no balance issues. Pt. has supportive family and assist as needed. Pt. has housekeeping assistance, and family checks on her regularly. No further OT needs at this time. PT [facility] Goals Wink Cutter Operator Goals [facility] Goals Time Frame: Oct 07, 2020 Roll Left to Right (QC): 6 Sit to Lying (QC): 6 Lying-Sitting on Side/Bed(QC): 6 Sit to Stand (QC): 6 Chair/Bgz-di-Pzubp Xfer(QC): 6 Car Transfer (QC): 6 Does the Patient Walk: Yes Walk 10 feet (QC): 6 Walk 10ft-Uneven Surface(QC): 6 Walk 50ft with 2 Turns (QC): 6 Walk 150 ft (QC): 6 Wheel 50 feet with 2 turns (QC: 9 1 Step (curb) (QC): 6 4 Steps (QC): 6 12 Steps (QC): 6 Picking up an Object (QC): 6 OT [facility] Goals Wink Cutter Operator Goals Time Frame: Sep 23, 2020 Eating (FIM): 6 (met) Eating (QC): 6 (met) Oral Hygiene (QC): 6 (met) Shower/Bathe Self (QC): 6 (met with safety concerns) Upper Body Dressing (QC): 6 (met) Lower Body Dressing (QC): 6 (met with safety concerns) On/Off Footwear (QC): 6 (met) Toileting(FIM): 6 (met) Toileting Hygiene (QC): 6 (met) Toilet/Commode Transfer (QC): 6 (met) Pt. will perform 3 step kitchen task with no re-direction needed. Additional Goals: 1-Demonstrate ADL Tasks, 2-Verbalize Understanding, 3- ImproveStrength/[place] 1=Demonstrate adherence to instructed precautions during ADL tasks. 2=Patient will verbalize/demonstrate understanding of assistive devices/modifications for ADL. 3=Patient will improve strength/tolerance for activity to enable patient to perform ADL's. Speech Wink Cutter Operator Goals Wink Cutter Operator Goals Patient will improve cognitive-communication abilities in order to require decreased assist with ADL's. KETURAH STOVALL OT September 18, 2020 09:18
[2020-09-18] MEDS: CALCIUM CARB + VIT D 600 MG (CALCARB + D) TAB PO SCH (10:11)
[2020-09-18] MEDS: ENOXAPARIN 40 MG/0.4 ML (LOVENOX) SYR SC SCH (10:11)
[2020-09-18] MEDS: LACTOBACILLUS ACIDOPHILUS (PROBIOTIC) CAPSULE PO SCH (10:11)
[2020-09-18] MEDS: amLODIPine 10 MG (NORVASC) TAB PO SCH (10:11)
[2020-09-18 11:09] VITALS: BP 132/62
--- NOTE | 2020-09-18 15:15 | Therapy Team Discharge Summary ---
Therapy Discharge Summary Discharge Recommendations Date of Discharge September 18, 2020 at 11:05 Therapy D/C Recommendations: Home w/ Family Support Physical Therapy Patient came to rehab with Malignant Neoplasm of Cecum. Upon evaluation patient performed bed mobility and supine <-> sit with independence, sit <-> stand and transfers with SBA, car transfer SBA, ambulated 200' without an assistive device with SBA (including 50' with at least 2 turns of 90 degrees and 10' over an uneven surface), went up and down 12 steps using 2 handrails with SBA and picked up an object from the floor with SBA. Patient has been performing bed mobility and transfer training, balance and endurance training, functional strengthening, stair training, gait training, and education. Patient has made good progress and has met all of her custodial goals. Now, patient performs bed mobility and transfers with independence, independent with car transfer, ambulates 300' without an assistive device with independence (including 50' with at least 2 turns of 90 degrees and 10' over an uneven surface), and can go up and down 12 steps using 2 handrails with independence, and can scrap picker an object from the floor with independence. Patient has discharged from this facility today and will be discharged from PT at this time. PT [facility] Goals [facility] Goals PT [facility] Goals Time Frame: Oct 07, 2020 Roll Left to Right (QC): 6 Sit to Lying (QC): 6 Lying-Sitting on Side/Bed(QC): 6 Sit to Stand (QC): 6 Chair/Fua-rb-Bxvyp Xfer(QC): 6 Car Transfer (QC): 6 Does the Patient Walk: Yes Walk 10 feet (QC): 6 Walk 10ft-Uneven Surface(QC): 6 Walk 50ft with 2 Turns (QC): 6 Walk 150 ft (QC): 6 Wheel 50 feet with 2 turns (QC: 9 1 Step (curb) (QC): 6 4 Steps (QC): 6 12 Steps (QC): 6 Picking up an Object (QC): 6 OT Asparagus Cutter Goals [facility] Goals Time Frame: Sep 23, 2020 Eating (FIM): 6 (met) Eating (QC): 6 (met) Oral Hygiene (QC): 6 (met) Shower/Bathe Self (QC): 6 (met with safety concerns) Upper Body Dressing (QC): 6 (met) Lower Body Dressing (QC): 6 (met with safety concerns) On/Off Footwear (QC): 6 (met) Toileting(FIM): 6 (met) Toileting Hygiene (QC): 6 (met) Toilet/Commode Transfer (QC): 6 (met) Pt. will perform 3 step kitchen task with no re-direction needed. Additional Goals: 1-Demonstrate ADL Tasks, 2-Verbalize Understanding, 3- ImproveStrength/[place] 1=Demonstrate adherence to instructed precautions during ADL tasks. 2=Patient will verbalize/demonstrate understanding of assistive devices/modifications for ADL. 3=Patient will improve strength/tolerance for activity to enable patient to perform ADL's. Speech Asparagus Cutter Goals [facility] Goals Patient will improve cognitive-communication abilities in order to require decreased assist with ADL's. ROSHAN ZHANG PT September 18, 2020 15:15
== END 2020-09-18 11:05 | disposition home or self-care (01) | DRG 949 ==
PROVIDERS: ADMIT Internal Medicine; ATTEND Internal Medicine
DX: Z48.3 Aftercare following surgery for neoplasm (principal); I38 Endocarditis, valve unspecified; Z85.038 Personal history of other malignant neoplasm of large intestine; I69.220 Aphasia following other nontraumatic intracranial hemorrhage; I10 Essential (primary) hypertension; E78.00 Pure hypercholesterolemia, unspecified; E78.5 Hyperlipidemia, unspecified; E11.9 Type 2 diabetes mellitus without complications; M19.91 Primary osteoarthritis, unspecified site; Z83.3 Family history of diabetes mellitus; Z82.49 Family history of ischemic heart disease and other diseases of the circulatory system
CPT/HCPCS: 36415; 80053; 85025

== ENCOUNTER 2021-06-08 11:45 | Observation (INO) | payer BC, MEDICARE ==
[~2021-06-08] VITALS: Ht 162 cm; Wt 91.0 kg
[~2021-06-08 11:45] MED LIST changes: +ACET-2267 PO; +CALC1TAB29 PO; +LACT-228 PO; +LISI20TA26 PO; +POLY119P12 PO; +TRAM50TA3 PO; +VITA1TAB17 PO
[2021-06-08 12:15] LABS: BASOPHILS % (AUTO) 0 % (0-10); EOSINOPHILS # (AUTO) 0.2 10^3/uL (0.0-0.3); EOSINOPHILS % (AUTO) 2 % (0-10); HEMATOCRIT 42 % (35-52); HEMOGLOBIN 14.2 g/dL (11.5-16.0); LYMPHOCYTES # (AUTO) 2.5 10^3/uL (1.0-4.0); LYMPHOCYTES % (AUTO) 27 % (12-44); MEAN CORPUSCULAR HEMOGLOBIN 30 pg (25-34); MEAN CORPUSCULAR HGB CONC 34 g/dL (32-36); MEAN CORPUSCULAR VOLUME 89 fL (80-99); MEAN PLATELET VOLUME 10.6 fL (9.0-12.2); MONOCYTES # (AUTO) 0.5 10^3/uL (0.0-1.0); MONOCYTES % (AUTO) 5 % (0-12); NEUTROPHILS # (AUTO) 6.2 10^3/uL (1.8-7.8); NEUTROPHILS % (AUTO) 66 % (42-75); PLATELET COUNT 254 10^3/uL (130-400); WHITE BLOOD COUNT 9.4 10^3/uL (4.3-11.0)
--- NOTE | 2021-06-08 12:15 | ED Neurological Problem ---
General Chief Complaint: Neuro-Stroke Like Symptoms Stated Complaint: SLURRED SPEECH,CONFUSION Source: patient, family Exam Limitations: no limitations (LAURIE MOODY) History of Present Illness Date Seen by Provider: Jun 08, 2021 Time Seen by Provider: 12:10 Initial Comments Patient is a 80-year-old female with a history of hypertension, PE, hemorrhagic stroke, cecum cancer, who presents to ED with family for increased confusion, slurring speech. According to her son at bedside, he called her around 1030. Noted that she was confused and slurring of her words. Last known normal was yesterday evening. Patient ambulating with a steady gait. She denies of any focal neural deficit. Patient with active dysarthria. Similar episode was 2 years ago with a hemorrhagic stroke. She is currently on Plavix. She had IVC f ilter removed last week at [facility]. Currently on Lexapro. Son at bedside states she is unsure if she is taking her medication. She was somewhat agitated last Tuesday. Denies of any chest pain, abdominal pain. Normal urination. No fever at home. Denies history of diabetes. No visual changes. (LAURIE MOODY) Allergies and Home Medications Allergies Uncoded Allergies: ERTHROMYCIN (Allergy, Unknown, 05/08/12) Patient Home Medication List Home Medication List Reviewed: Yes (LAURIE MOODY) Acetaminophen (Tylenol Extra Strength) 500 Mg Tablet, 1,000 MG PO Q6H PRN for PAIN-MILD (1-4), (Reported) Entered as Reported by: FROILAN MIRZA on 09/15/20 1518 Amlodipine Besylate (Amlodipine Besylate) 10 Mg Tablet, 10 MG PO 1200, (Reported) Entered as Reported by: FROILAN MIRZA on 09/15/20 1518 Calcium Carbonate/Vitamin D3 (Os-Atul 500+D3 Caplet) 1 Each Tablet, 1 EACH PO DAILY, (Reported) Entered as Reported by: FROILAN MIRZA on 09/15/20 1518 Escitalopram Oxalate (Escitalopram Oxalate) 20 Mg Tablet, 20 MG PO HS, (Report ed) Entered as Reported by: FERCHO PALACIOS on 04/30/19 1629 Lactobacillus Rhamnosus GG (Culturelle) 1 Each Cap.sprink, 1 EACH PO DAILY, (Reported) Entered as Reported by: FROILAN MIRZA on 09/15/20 151 Lisinopril (Lisinopril) 20 Mg Tablet, 20 MG PO DAILY@0600 Prescribed by: CONY COLLINS on 09/18/20 0551 Moexipril HCl (Moexipril HCl) 15 Mg Tablet, 15 MG PO DAILY, (Reported) Entered as Reported by: FROILAN MIRZA on 09/15/20 151 Pravastatin Sodium (Pravastatin Sodium) 40 Mg Tablet, 40 MG PO HS, (Reported) Entered as Reported by: FROILAN MIRZA on 09/15/20 151 Tramadol HCl (Tramadol HCl) 50 Mg Tablet, 50 MG PO Q6H PRN for PAIN-MODERATE (5- 7) Prescribed by: CONY COLLINS on 09/18/20 0552 Vitamin B Complex (Vitamin B Complex) 1 Each Tablet, 1 EACH PO DAILY, (Reported) Entered as Reported by: FROILAN MIRZA on 09/15/20 151 Review of Systems Review of Systems Constitutional: No chills, No diaphoresis, No fever, No malaise, No weakness Eyes: Denies Blurred Vision, Denies Drainage, Denies Inflammation, Denies Pain, Denies Photophobia, Denies Previous Injury Ears, Nose, Mouth, Throat: denies ear pain, denies ear discharge Respiratory: No cough, No dyspnea on exertion Cardiovascular: No chest pain, No edema Gastrointestinal: No abdominal pain, No diarrhea, No dysphagia Genitourinary: No dysuria, No frequency Musculoskeletal: back pain; No joint pain Skin: No change in color, No change in hair/nails Psychiatric/Neurological: Denies Depressed (LAURIE MOODY) All Other Systems Reviewed Negative Unless Noted: Yes (LAURIE MOODY) Past Yqsvrew-Jurifz-Bsozrm Hx Immunizations Up To Date PED Vaccines UTD: Yes (LAURIE MOODY) Seasonal Allergies Seasonal Allergies: Yes (LAURIE MOODY) Past Medical History Surgeries: Yes (colonoscopy) Appendectomy, Gallbladder, Hysterectomy Respiratory: Yes Pneumonia Cardiac: Yes High Cholesterol, Hypertension, Valvular Heart Disease Neurological: No (s/p recent IPH) Stroke, TIA Female Reproductive Disorders: Denies Sexually Transmitted Disease: No HIV/AIDS: No Genitourinary: No Gastrointestinal: Yes (polyps) Musculoskeletal: Yes Arthritis, Fractures Endocrine: Yes (DMII diet controlled) Diabetes, Non-Insulin dep HEENT: No Loss of Vision: Denies Hearing Impairment: Denies Cancer: No Psychosocial: No Integumentary: No Blood Disorders: No (LAURIE MOODY) Family Medical History Patient reports no known family medical history. No Pertinent Family Hx (LAURIE MOODY) Physical Exam Vital Signs Capillary Refill : (LAURIE MOODY) Height, Weight, BMI Height: 5'6.00" Weight: 196lbs. 0.0oz. [id number]; 32.62 BMI Method:Stated General Appearance: WD/WN, no apparent distress HEENT: PERRL/EOMI, normal ENT inspection, TMs normal, pharynx normal Neck: non-tender, full range of motion, supple, normal inspection Respiratory: chest non-tender, lungs clear, normal breath sounds, no respiratory distress, no accessory muscle use Cardiovascular: regular rate, rhythm, no edema, no gallop, no JVD Gastrointestinal: normal bowel sounds, non tender, soft, no organomegaly Back: normal inspection, no CVA tenderness, no vertebral tenderness Extremities: normal range of motion, non-tender, normal inspection, no calf tenderness Neurologic/Psychiatric: celery stripper II-XII nml as tested, no motor/sensory deficits, alert, normal mood/affect, oriented x 3 Motor/Sensory: no motor deficit, no sensory deficit Skin: normal color (LAURIE MOODY) Stroke Onset of Symptoms Time of Symptom Onset: 10:30 Symptoms onset unknown: Yes (LAURIE MOODY) NIH Stroke Scale Assessment Select: Initial Level of Consciousness: 0=Alert (0), Level of Consciousness- Questions: 1=Answers one question (1), LOC Commands: 0=Performs both tasks (0), Gaze: Normal (0), Visual [place]: 0=No visual loss (0), Facial Movement (Facial Paresis): 0=Normal symmetrical mnt (0), Motor Function-Arms Right: 0=No drift (0), Motor Function-Arms Left: 0=No drift (0), Motor Function-Legs Right: 0=No drift (0), Motor Function-Legs Left: 0=No drift (0), Limb Ataxia: 0=Absent (0), Sensory: 0=Normal:no loss (0), Best Language: 2=Severe aphasia (2), Dysarthria: 1=Mild to moderate loss (1), Extinction & Inattention: 0=No abnormality (0), Total: 4 Stroke Thrombolytic Exclusion History of CVA: Yes (LAURIE MOODY) Progress/Results/Core Measures Results/Orders Lab Results Laboratory Tests Test 06/08/21 11:52 06/08/21 11:57 06/08/21 14:43 06/08/21 15:20 Range/Units White Blood Count 9.4 4.3-11.0 10^3/uL Red Blood Count 4.68 3.80-5.11 10^6/uL Hemoglobin 14.2 11.5-16.0 g/dL Hematocrit 42 35-52 % Mean Corpuscular Volume 89 80-99 fL Mean Corpuscular Hemoglobin 30 25-34 pg Mean Corpuscular Hemoglobin Concent 34 32-36 g/dL Red Cell Distribution Width 12.5 10.0-14.5 % Platelet Count 254 130-400 10^3/uL Mean Platelet Volume 10.6 9.0-12.2 fL Immature Granulocyte % (Auto) 0 % Neutrophils (%) (Auto) 66 42-75 % Lymphocytes (%) (Auto) 27 12-44 % Monocytes (%) (Auto) 5 0-12 % Eosinophils (%) (Auto) 2 0-10 % Basophils (%) (Auto) 0 0-10 % Neutrophils # (Auto) 6.2 1.8-7.8 10^3/uL Lymphocytes # (Auto) 2.5 1.0-4.0 10^3/uL Monocytes # (Auto) 0.5 0.0-1.0 10^3/uL Eosinophils # (Auto) 0.2 0.0-0.3 10^3/uL Basophils # (Auto) 0.0 0.0-0.1 10^3/uL Immature Granulocyte # (Auto) 0.0 0.0-0.1 10^3/uL Prothrombin Time 13.9 12.2-14.7 SEC INR Comment 1.0 0.8-1.4 Activated Partial Thromboplast Time 30 24-35 SEC Sodium Level 142 135-145 MMOL/L Potassium Level 3.7 3.6-5.0 MMOL/L Chloride Level 107 98-107 MMOL/L Carbon Dioxide Level 19 L 21-32 MMOL/L Anion Gap 16 H 5-14 MMOL/L Blood Urea Nitrogen 23 H 7-18 MG/DL Creatinine 0.91 0.60-1.30 MG/DL Estimat Glomerular Filtration Rate 63 BUN/Creatinine Ratio 25 Glucose Level 146 H 70-105 MG/DL Mean Blood Glucose 100 <=126 mg/dL Hemoglobin A1c 5.1 4.0-5.6 % Calcium Level 9.7 8.5-10.1 MG/DL Corrected Calcium 9.8 8.5-10.1 MG/DL Total Bilirubin 2.2 H 0.1-1.0 MG/DL Aspartate Amino Transf (AST/SGOT) 16 5-34 U/L Alanine Aminotransferase (ALT/SGPT) 9 0-55 U/L Alkaline Phosphatase 72 40-136 U/L Troponin I < 0.028 <0.028 NG/ML Total Protein 7.3 6.4-8.2 GM/DL Albumin 3.9 3.2-4.5 GM/DL Glucometer 145 H 70-110 MG/DL D-Dimer 0.59 H 0.00-0.49 UG/ML Urine Color YELLOW Urine Clarity CLEAR Urine pH 6.0 5-9 Urine Specific Waves 1.015 L 1.016-1.022 Urine Protein NEGATIVE NEGATIVE Urine Glucose (UA) NEGATIVE NEGATIVE Urine Ketones NEGATIVE NEGATIVE Urine Nitrite NEGATIVE NEGATIVE Urine Bilirubin NEGATIVE NEGATIVE Urine Urobilinogen 0.2 < = 1.0 MG/DL Urine Leukocyte Esterase NEGATIVE NEGATIVE Urine RBC (Auto) TRACE-I H NEGATIVE Urine RBC 2-5 H /HPF Urine WBC 2-5 /HPF Urine Crystals PRESENT H /LPF Urine Amorphous Sediment RARE JENNIFER URATES H /LPF Urine Bacteria TRACE /HPF Urine Casts NONE /LPF Urine Mucus NEGATIVE /LPF Urine Culture Indicated NO (CAN CHEN DO) Departure Communication (Admissions) Time/Spoke to Admitting Phy: 16:16 Patient presents ED with aphasia dysarthria started around 10:30 AM. According to son she was at her normal baseline yesterday. Patient states she was waking up when her son called. History of hemorrhagic stroke 2 years ago and states today's symptoms feel very similar. She does have some aphasia with very mild dysarthria. This appears to be improving according to son. NIH of 4. Vital signs stable. Initial CT scan without any acute abnormality. Patient lab work showed normal white blood count. Urinalysis negative for infection. No cough, chest pain. Cardiac work-up unremarkable besides slightly elevated D-dimer 0.56. She had a IVC filter removed at [facility] last week. Currently on anticoagulant. CT angio head and neck negative for high occlusion. According to son patient has been recommended to decrease her Lexapro. She is very anxious. Unclear if this is associated with any of her symptoms. I recommend observation with MRI for further evaluation. Patient was discussed with Dr. Pedraza who agrees with plan of action. (LAURIE MOODY) Impression Primary Impression: Stroke-like symptoms Disposition: ADMITTED INPATIENT Condition: Stable Admissions Decision to Admit Reason: Admit from ER (General) Decision to Admit/Date: Jun 08, 2021 Time/Decision to Admit Time: 16:16 (LAURIE MOODY) Departure-Patient Inst. Referrals: NO,LOCAL PHYSICIAN (PCP/Family) Primary Care Physician ATTENDING PHYSICIAN NOTE: I WAS PHYSICALLY PRESENT ER PHYSICIAN, BUT I WAS NOT INVOLVED IN ANY DECISION MAKING OR ANY CARE OF THIS PATIENT. (CAN CHEN DO) LAURIE MOODY Jun 08, 2021 12:15 CAN CHEN DO Jun 21, 2021 01:49
--- NOTE | 2021-06-08 12:43 | Diagnostic Imaging Report ---
HISTORY: Confusion, altered mental status COMPARISON: 04/26/2019 TECHNIQUE: Frontal view of the chest. FINDINGS: There are mild airspace opacities in the right lung base, decreased since the prior exam.. There may be a small right pleural effusion. The left lung is clear. There is no pneumothorax. The cardiac silhouette is normal in size. IMPRESSION: 1. Right basilar airspace opacities, may represent atelectasis or infiltrate. Minimal right pleural effusion. Dictated by: Dictated on workstation # [id number]
[2021-06-08 12:47] LABS: PROTHROMBIN TIME PATIENT 13.9 SEC (12.2-14.7)
[2021-06-08 12:58] LABS: ALANINE AMINOTRANSFERASE 9 U/L (0-55); ALBUMIN 3.9 GM/DL (3.2-4.5); ALKALINE PHOSPHATASE 72 U/L (40-136); BILIRUBIN,TOTAL 2.2 MG/DL (0.1-1.0); BUN/CREATININE RATIO 25; CALCIUM 9.7 MG/DL (8.5-10.1); CARBON DIOXIDE 19 MMOL/L (21-32); CHLORIDE 107 MMOL/L (98-107); CREATININE SERUM 0.91 MG/DL (0.60-1.30); GFR ESTIMATED 63; GLUCOSE 146 MG/DL (70-105); POTASSIUM 3.7 MMOL/L (3.6-5.0); SODIUM 142 MMOL/L (135-145); TOTAL PROTEIN 7.3 GM/DL (6.4-8.2)
--- NOTE | 2021-06-08 13:03 | Diagnostic Imaging Report ---
CLINICAL INDICATION: Patient is confused when asked questions and has word salad. Last known well time was sometime last night. EXAM: Axial CT scan of the brain performed without IV contrast. High-resolution axial CT brain images with sagittal and coronal reformations were also created. Auto Exposure Controls were utilized during the CT exam to meet ALARA standards for radiation dose reduction. COMPARISON: Head CT without contrast dated 04/26/2019. FINDINGS: There is no evidence of acute cerebral infarct, intracranial hemorrhage, brain herniation or midline shift. There is no hydrocephalus. There is no dense vessel sign. There is a stable small area of encephalomalacia involving the anterior parasagittal left frontal lobe. There is interval resolution of previously seen intraparenchymal hemorrhage involving the upper posterior left temporal lobe with now chronic encephalomalacia remaining. There are subtle patchy areas of low-attenuation white matter changes involving both cerebral hemispheres. Visualized [place] vascular structures are unremarkable. The extracranial soft tissue, skull, and orbits are unremarkable. There is minimal mucosal thickening involving both maxillary sinuses. Mastoid air cells are clear. IMPRESSION: 1: There is no dense vessel sign seen. There is no definite CT evidence of interval acute cerebral infarction, intracranial hemorrhage, or mass seen. The diffuse low attenuation changes throughout the brain parenchyma may possibly obscure more subtle findings. If there is clinical concern for acute cerebral infarction, MRI of the brain would better evaluate. 2: Interval resolution of the previously seen left temporal lobe intraparenchymal hemorrhage with residual chronic encephalomalacia. 3: Stable left frontal lobe chronic cerebral infarct. 4: There are small patchy areas of low-attenuation white matter changes involving both cerebral hemispheres which may represent chronic small vessel ischemic disease. Results of this report were discussed with MAURY Alejandra, via the telephone on 06/08/2021 at 1250 hours. Dictated by: Dictated on workstation # [id number]
[2021-06-08] MEDS ORDERED: IOHEXOL 350 MG/ML 100 ML (OMNIPAQUE 350) VIAL IV ONE (13:15)
[2021-06-08] MEDS ORDERED: HOLD METFORMIN - RECEIVED CONTRAST 20 ML VIAL IV SCH (13:15)
[2021-06-08] MEDS ORDERED: NS 100 ML (IVPB) BAG IV ONE (13:15)
--- NOTE | 2021-06-08 15:04 | Diagnostic Imaging Report ---
PROCEDURE: CT angiography of the head and CT angiography of the neck with and without contrast. TECHNIQUE: Contiguous noncontrast images were obtained from the skull base through the vertex. After intravenous contrast administration, helical CT angiography of the neck was performed. Source data was reformatted into 3D MIP projections. Delayed post contrast acquisition was also obtained. Auto Exposure Controls were utilized during the CT exam to meet ALARA standards for radiation dose reduction. INDICATION: Altered mental status, aphasia, dysarthria, word salad. Last known well last night. COMPARISON: CT head from the same day. FINDINGS: The right common carotid artery and right internal carotid artery are widely patent. There is mild atherosclerosis in the distal internal carotid artery. There is diffuse tortuosity. The right common carotid artery is retropharyngeal. The left common carotid artery is tortuous as well. The common and internal carotid arteries are widely patent. There is mild atherosclerosis distally with no stenosis or occlusion. The left vertebral artery is slightly dominant. The vertebral arteries are tortuous. There is mild narrowing of the left vertebral artery at the C6 level, which appears to be due to extrinsic compression from degenerative change. The anterior communicating artery is not well seen. The anterior cerebral arteries are unremarkable. No occlusive thrombus is seen. The middle cerebral arteries appear patent. The posterior communicating arteries are well seen. The bilateral posterior cerebral arteries appear normal. The superior cerebellar arteries appear normal. The basilar artery is normal. No filling defects are seen in the dural sinuses to suggest a thrombus. No enhancing lesions are seen. There is encephalomalacia in the left frontal lobe and left temporal lobe, from old infarcts. No acute hemorrhage is seen. There is calcification of the dura adjacent to the right temporal lobe. There is hyperostosis frontalis. Visualized paranasal sinuses are clear. There is severe degenerative change in the cervical spine with grade 1 anterolisthesis at C2-C3, C3-C4, C4-C5 and very large bulky anterior osteophytes in the lower cervical spine. IMPRESSION: 1. No occlusion or high-grade stenosis is seen in the arteries of the head and neck. 2. Old infarcts in the left frontal and temporal lobes. 3. Advanced degenerative changes in the cervical spine with large anterior osteophytes. Dictated by: Dictated on workstation # [id number]
[2021-06-08 15:24] LABS: BILIRUBIN,URINE NEGATIVE (NEGATIVE); CLARITY,URINE CLEAR; COLOR,URINE YELLOW; GLUCOSE, URINE (UA) NEGATIVE (NEGATIVE); KETONES,URINE NEGATIVE (NEGATIVE); LEUKOCYTE ESTERASE ,URINE NEGATIVE (NEGATIVE); NITRITE,URINE NEGATIVE (NEGATIVE); PROTEIN,URINE NEGATIVE (NEGATIVE)
[2021-06-08 15:39] LABS: AMORPHOUS SEDIMENT,UR RARE AMOR URATES /LPF; BACTERIA,URINE TRACE /HPF
[2021-06-08] MEDS ORDERED: ONDANSETRON 4 MG/2 ML (SDV) Z0FRAN IV PRN (19:30)
[2021-06-08] MEDS ORDERED: MELATONIN 3 MG TABLET PO PRN (19:30)
[2021-06-08] MEDS ORDERED: ONDANSETRON 4 MG (ZOFRAN) ORAL DISSOLVE TAB PO PRN (19:30)
[2021-06-08] MEDS ORDERED: ANTACID SUSP 30 ML UDC (MYLANTA) PO PRN (19:30)
[2021-06-08] MEDS ORDERED: polyethylene glycoL POWDER 17 GM (MIRALAX) PACK PO PRN (19:30)
[2021-06-08] MEDS ORDERED: ACETAMINOPHEN 325 MG TABLET PO PRN (19:30)
[2021-06-08 19:50] VITALS: BP 129/75
[2021-06-08] MEDS ORDERED: ENOXAPARIN 40 MG/0.4 ML (LOVENOX) SYR SC SCH (21:00)
[2021-06-08 21:05] VITALS: BP 157/70
[2021-06-08] MEDS: SENNOSIDES 8.6 MG (SENOKOT) TAB PO SCH (22:39)
[2021-06-08] MEDS: DOCUSATE SODIUM 100 MG (COLACE) CAP PO SCH (22:39)
[2021-06-08] MEDS: inSUlin ASPART (NovoLOG) 1 UNIT/0.01 ML (CHARGE PER UNIT) SC SCH (22:48)
[2021-06-08 23:38] VITALS: BP 155/67
[2021-06-09 04:53] VITALS: BP 135/61
[2021-06-09] MEDS: inSUlin ASPART (NovoLOG) 1 UNIT/0.01 ML (CHARGE PER UNIT) SC SCH ×3 (05:41→11:41)
[2021-06-09 06:45] LABS: HEMATOCRIT 41 % (35-52); HEMOGLOBIN 13.8 g/dL (11.5-16.0); MEAN CORPUSCULAR HEMOGLOBIN 31 pg (25-34); MEAN CORPUSCULAR HGB CONC 34 g/dL (32-36); MEAN CORPUSCULAR VOLUME 91 fL (80-99); MEAN PLATELET VOLUME 10.1 fL (9.0-12.2); PLATELET COUNT 202 10^3/uL (130-400); WHITE BLOOD COUNT 8.6 10^3/uL (4.3-11.0)
[2021-06-09 07:06] LABS: ALBUMIN 3.8 GM/DL (3.2-4.5); BILIRUBIN,TOTAL 2.5 MG/DL (0.1-1.0); CALCIUM 9.6 MG/DL (8.5-10.1); CREATININE SERUM 0.9 MG/DL (0.60-1.30); POTASSIUM 3.8 MMOL/L (3.6-5.0); TOTAL PROTEIN 6.8 GM/DL (6.4-8.2)
[2021-06-09 08:00] VITALS: BP 126/80
--- NOTE | 2021-06-09 08:20 | Diagnostic Imaging Report ---
PROCEDURE: MR imaging of the brain without contrast. TECHNIQUE: Multiplanar, multisequence MR imaging of the brain was performed without contrast. INDICATION: Stroke. History of brain bleed. COMPARISON: CT head without contrast 06/08/2021. FINDINGS: Encephalomalacia and hemosiderin deposition in the left frontal lobe and anterior left temporal lobe consistent with chronic hemorrhagic infarct. No evidence of an acute intracranial hemorrhage or infarction. Moderate nonspecific T2 hyperintensities in the supratentorial white matter compatible with chronic small vessel ischemic change. Normal morphology including the major midline structures, sella, posterior fossa and cerebellar pontine angle. Normal intracranial flow voids. No hydrocephalus or extra-axial fluid collections. The orbits are negative. Paranasal sinuses are clear. Scant fluid in the right mastoid. Normal bone marrow signal. IMPRESSION: 1. No evidence of acute infarction or hemorrhage. 2. Chronic hemorrhagic infarcts in the left frontal and left temporal lobes. 3. Age-appropriate chronic small vessel ischemic change. Dictated by: Dictated on workstation # [id number]
[2021-06-09 08:22] VITALS: BP 154/80
[2021-06-09] MEDS ORDERED: ASPIRIN 81 MG CHEW (CHILDREN'S ASA) PO SCH (09:00)
[2021-06-09] MEDS ORDERED: lisINopril 40 MG (PRINIVIL) TABLET PO SCH (09:00)
[2021-06-09] MEDS ORDERED: amLODIPine 10 MG (NORVASC) TAB PO SCH (09:00)
--- NOTE | 2021-06-09 09:12 | Physical Therapy Evaluation ---
PT Evaluation-General Medical Diagnosis Admission Date Jun 08, 2021 at 15:54 Medical Diagnosis: Altered mental status Onset Date: Jun 08, 2021 Therapy Diagnosis Therapy Diagnosis: weakness, debility Height/Weight Height (Feet): 5 Height (Inches): 6.00 Weight (Pounds): 196 Weight (Ounces): 0.0 Precautions Precautions/Isolations: Fall Prevention, Standard Precautions Referral Physician: Milo Reason for Referral: Evaluation/Treatment Medical History Pertinent Medical History: CVA, DM, HTN Additional Medical History PE, previous hemorrhagic stroke, cancer, DM Current History Patient presented to ED via family member due to an increased change in mental status Social History Home: Single Level Current Living Status: Alone Prior Prior Level of Function SCALE: Activities may be completed with or without assistive devices. 9-Gkavinpakc-qnywcdb completes the activity by him/herself with no assistance from a helper. 5-Set-up or Clean-up Assistance-helper sets up or cleans up; patient completes activity. [place] assists only prior to or following the activity. 4-Supervision or Touching Assistance-helper provides verbal cues and/or touching/steadying and/or contact guard assistance as patient completes activity. Assistance may be provided throughout the activity or intermittently. 3-Partial/Moderate Assistance-helper does LESS THAN HALF the effort. [place] lifts, holds or supports trunk or limbs, but provides less than half the effort. 2-Substantial/Maximal Assistance-helper does MORE THAN HALF the effort. [place] lifts or holds trunk or limbs and provides more than half the effort. 9-Zlxfqnsay-lqitgk does ALL the effort. Patient does none of the effort to c omplete the activity. Or, the assistance of 2 or more helpers is required for the patient to complete the activity. If activity was not attempted, code reason: 7-Patient Refused. 9-Not Applicable-not attempted and the patient did not perform the activity before the current illness, exacerbation or injury. 10-Not Attempted due to Environmental Limitations-(lack of equipment, weather restraints, etc.). 88-Not Attempted due to Medical Conditions or Safety Concerns. Bed Mobility: 6 Transfers (B,C,W/C): 6 Gait: 6 Stairs: 6 Indoor Mobility (Ambulation): Independent Stairs: Independent PT Evaluation-Current Subjective Patient presented laying in bed and agrees to participate with physical therapy. Objective Patient Orientation: Person, Place, Time, Situation ROM/Strength ROM Lower Extremities WFL Strength Lower Extremities 4/5 strength bilateral grossly Integumentary/Posture Bowel Incontinence: No Bladder Incontinence: No Neuromuscular (Tone, Coordination, Reflexes) grossly intact Sensory Vision: Functional Hearing: Functional Transfers Sit to Lying (QC): 6 Lying to Sitting/Side of Bed(Q: 6 Sit to Stand (QC): 6 Patient was independent for all transfers. Gait Does the Patient Walk?: Yes Mode of Locomotion: Walk Anticipated Mode of Locomotion: Walk Walk 10 feet (QC): 6 Walk 50 ft with 2 Turns(QC): 6 Walk 150 ft (QC): 6 Distance: 300' Gait Assistive Device: None Comments/Gait Description Patient ambulated for 300' independently. Balance Sitting Static: Normal Sitting Dynamic: Normal Standing Static: Normal Standing Dynamic: Normal Assessment/Needs Patient ambulated and performed all transfers independently. Patient reported that she "didn't need to be here" and "could walk fine". Patient stood for 3 minutes independently in the [place] while talking. Patient is being d/c from physical therapy services due to patient being independent for ambulation and t ransfers. Rehab Potential: Guarded PT Plan Treatment/Plan Treatment Plan: Discontinue PT, goals met Treatment Duration: Jun 09, 2021 Frequency: 1 time per week Time/GCodes Time In: 830 Time Out: 840 Total Billed Treatment Time: 10 Total Billed Treatment 1 Visit EVLow 10 min D/C from therapy SALMA PEREZ PT Jun 09, 2021 09:12
--- NOTE | 2021-06-09 10:35 | Speech Therapy Progress Note ---
Therapy Progress Note The clinician visited with the assigned RN on 1000. Per RN, the patient "passed" the RN Dysphagia Screen however is NPO pending MRI results. Following the physician approval, the patient will be placed on an oral diet consistency per RN. At this time, ST will discontinue clinical bedside swallowing consult. NAYA GARCIA Jun 09, 2021 10:35
[2021-06-09] MEDS: DOCUSATE SODIUM 100 MG (COLACE) CAP PO SCH (10:39)
[2021-06-09] MEDS: SENNOSIDES 8.6 MG (SENOKOT) TAB PO SCH (10:40)
--- NOTE | 2021-06-09 11:12 | ST Cognitive Linguistic Eval ---
Speech Evaluation-General Medical Diagnosis Altered Mental Status Onset Date: Jun 08, 2021 Therapy Diagnosis Therapy Diagnosis: Suspected Confusion, Intermittent Precautions Precautions: Fall Precautions/Isolations: Standard Precautions Referral Referring Physician: Dr. Pedraza Reason for Referral: Evaluation/Treatment Medical History Pertinent Medical History: CVA, DM, HTN Current History The patient is an 80-year-old female with a history of hypertension, PE, hemorrhagic stroke, and cecum cancer, who presented to [facility] with increased confusion and "slurred" speech. MRI: 06/10/2021: 1. No evidence of acute infarction or hemorrhage. 2. Chronic hemorrhagic infarcts in the left frontal and left temporal lobes. 3. Age- appropriate chronic small vessel ischemic change. Reviewed History: Yes Social History Current Living Status: Alone Speech PLF-Current Status Prior Level of Function The patient's grandson is present at bedside upon entrance to the patient's room. The patient reported her speech, language, and cognition are at baseline. Per patient's grandson, the patient is demonstrating her prior level of expressive and receptive communication. Subjective The patient was seated upright in her bed upon entrance to the room. The patient is alert, awake and greets the clinician appropriately. Language Eval: Auditory Comprehends Simple Yes/No Ques: Functional Follows 1-Step Commands: Functional Follows General Conversations: Functional The patient participates in structured conversation regarding her prior level of function and her current deficits, if any. The patient responds appropriately to the clinician's questions and does display intermittent halting for word-finding difficulty. Language Eval: Verbal Language Completes Spontaneous Greeting: Functional Produces Auto, Serial Info: Functional Word Finding: Mild Requests Basic Needs: Functional (The patient independently requests medication from the RN while the clinician is present. ) States Basic Personal Info: Functional The patient demonstrated mild anomia, displaying halting throughout conversation for accurate word use. Cognitive Patient Orientation The patient is oriented to self, location, month, and year. The patient jokes with the clinician throughout orientation information prior to providing the accurate responses. Objective Cognitive Domain Attention: Mild (The patient does display impuslivity intermittently, requiring redirection to the conversational topic. ) The patient displayed two occasions of language of confusion, describing a s pecific situation which was tangential and difficult for the clinician to comprehend. Objective Oral Motor/Speech Production The patient does not display dysarthria or apraxia of speech at this time. The patient remains 100% intelligible in known and unknown contexts. Impression The patient demonstrated a mild expressive language deficit, as word finding errors were minimally presented throughout structured and spontaneous conversation. Additionally, intermittent confusion (mild) remains present. Speech-Plan Treatment Plan Speech Therapy Treatment Plan: Discontinue ST The patient is discharging home on this date. If additional services are warranted, please contact speech pathology on an outpatient basis. Frequency: 1 time per week Estimated Hrs Per Day: .25 hour per day Rehab Potential: Guarded Pt/Family Agrees to Plan: Yes Safety Risks/Education Teaching Recipient: Patient, Family Teaching Methods: Discussion Response to Teaching: Verbalize Understanding, Reinforcement Needed Education Topics Provided: Plan of Care, Recommendations Time Speech Therapy Time In: 10:38 Speech Therapy Time Out: 10:54 Total Billed Time: 16 Billed Treatment Time 1, KIARRA GARCIANAYA ST Jun 09, 2021 11:12
[2021-06-09 12:13] VITALS: BP 154/80
--- NOTE | 2021-07-01 15:10 | Discharge Summary ---
Discharge Summary Hospital Course Problems/Dx: (1) Stroke-like symptoms Status: Acute Hospital Course Date of Admission: Jun 08, 2021 at 15:54 Admission Diagnosis : Stroke like symptoms Family Physician/Provider: Stan Schafer Physician Date of Discharge: 06/09/21 Discharge Diagnosis: Stroke like symptoms Hospital Course: Kate Canela is an 80 year old female who presented with stroke like symptoms. She underwent stroke evaluation and was not found to have any evidence of acute s troke on CT or MRI. She had no evidence of carotid stenosis on CTA. She had an echo which showed normal EF with grade I diastolic dysfunction. She was continued on her statin. Her symptoms resolved prior to discharge. She was discharged home in stable condition. She should follow up with her PCP in about a week. Labs and Pending Lab Test: Home Meds Active Tramadol HCl 50 Mg Tablet 50 Mg PO Q6H PRN Lisinopril 20 Mg Tablet 20 Mg PO DAILY@0600 Reported Vitamin B Complex 1 Each Tablet 1 Each PO DAILY Pravastatin Sodium 40 Mg Tablet 40 Mg PO HS Moexipril HCl 15 Mg Tablet 15 Mg PO DAILY TAKES ON AN EMPTY STOMACH Culturelle (Lactobacillus Rhamnosus GG) 1 Each Cap.sprink 1 Each PO DAILY Os-Atul 500+D3 Caplet (Calcium Carbonate/Vitamin D3) 1 Each Tablet 1 Each PO DAILY Amlodipine Besylate 10 Mg Tablet 10 Mg PO 1200 Tylenol Extra Strength (Acetaminophen) 500 Mg Tablet 1,000 Mg PO Q6H PRN Escitalopram Oxalate 20 Mg Tablet 20 Mg PO HS Assessment/Pt Instructions Take medications as prescribed. Follow up with your PCP. Return with worsening symptoms. Discharge Planning: <30 minutes discharge planning Discharge Instructions Discharge Diet: Low Sodium Diet Activity as Tolerated: Yes Discharge Physical Examination Allergies: Uncoded Allergies: ERTHROMYCIN (Allergy, Unknown, 05/08/12) Discharge Summary Date of Admission Jun 08, 2021 at 15:54 Date of Discharge Jun 09, 2021 at 12:20 Discharge Date: Jun 09, 2021 Discharge Time: 12:20 Admission Diagnosis Stroke like symptoms Discharge Diagnosis (1) Stroke-like symptoms Status: Acute Clinical Quality Measures Stroke: Time of last known well: 10:30 Symptoms onset unknown: Yes ASAD HANKINS MD Jul 01, 2021 15:09
== END 2021-06-09 12:20 | disposition home or self-care (01) ==
LOC: EDUNIT# 11:45 → ER 11:48 → 4TH 15:54
PROVIDERS: ADMIT Internal Medicine; ATTEND Internal Medicine
DX: R47.81 Slurred speech (principal); R47.1 Dysarthria and anarthria; R47.01 Aphasia; R41.0 Disorientation, unspecified; I10 Essential (primary) hypertension; R29.704 NIHSS score 4; Z86.711 Personal history of pulmonary embolism; Z79.01 Long term (current) use of anticoagulants; Z86.73 Personal history of transient ischemic attack (TIA), and cerebral infarction without residual deficits; Z85.038 Personal history of other malignant neoplasm of large intestine; Z88.1 Allergy status to other antibiotic agents
CPT/HCPCS: 70450; 70496; 70498; 70551; 71045; 80053 ×2; 80061; 81000; 82947 ×2; 83036; 84484; 85025; 85027; 85379; 85610; 85730; 92523; 93005; 93041; 93306; 94664; 97161; 99284; G0378; 36415

== ENCOUNTER → 2022-01-07 | Outpatient (CLI) | payer BC, MEDICARE ==
[~2022-01-07] MED LIST changes: -FENO134C PO; +FENO134C21 PO
--- NOTE | 2022-01-07 13:38 | Diagnostic Imaging Report ---
PROCEDURE: CT chest with contrast only. TECHNIQUE: Multiple contiguous axial images were obtained through the chest after administration of intravenous contrast. Auto Exposure Controls were utilized during the CT exam to meet ALARA standards for radiation dose reduction. DATE: January 07, 2022. COMPARISON: Chest radiograph April 26, 2019. INDICATION: 81-year-old female, elevated D-dimer. Shortness breath. FINDINGS: There is respiratory motion artifact. There are mild linear opacities in the right and left lower lobes, likely reflecting atelectasis. There is no additionally identified focal airspace consolidation. There is no pneumothorax. There is no pleural effusion. The central airways are patent. There is no identified central or segmental pulmonary embolus. The main pulmonary artery diameter is within normal limits. The heart is not enlarged. There is no pericardial effusion. There is a partially calcified AP window lymph node measuring 12 mm in short axis. There is no additional mediastinal, hilar, or axillary lymph node meeting CT size criteria for adenopathy. There is a 7 mm low-attenuation lesion in the left lobe of the liver on axial image 101 which is too small to characterize. There is no splenomegaly. There are multilevel degenerative changes of the spine. There is no identified acute bony abnormality. IMPRESSION: CT CHEST. 1. No identified central or segmental pulmonary embolus. 2. No otherwise identified acute cardiopulmonary abnormality. 3. Partially calcified AP window lymph node of uncertain exact etiology or significance. No additional identified abnormally enlarged lymph node at the level of the chest. No splenomegaly. Dictated by: Dictated on workstation # [id number]
--- NOTE | 2022-01-07 14:36 | Diagnostic Imaging Report ---
PROCEDURE: US Venous Lower Ext [place]. TECHNIQUE: Multiple real-time grayscale images were obtained over the lower extremities in various projections, bilaterally. Additional duplex Doppler and color Doppler images were also obtained. INDICATION: Elevated d-dimer COMPARISON: Non available. FINDINGS: The bilateral common femoral, femoral and popliteal veins are patent by color doppler imaging and without DVT. Visualized proximal aspects of the greater saphenous, deep femoral, posterior tibial and peroneal veins are also patent. All of the evaluated deep venous structures demonstrate normal compressibility and waveform augmentation where applicable. IMPRESSION: No deep venous thrombosis in either of the lower extremities. Dictated by: Dictated on workstation # [id number]
== END ==
LOC: RAD 12:33
DX: R06.02 Shortness of breath (principal); R79.1 Abnormal coagulation profile
CPT/HCPCS: 71260; 93970

== ENCOUNTER → 2022-01-14 | Outpatient (CLI) | payer BC, MEDICARE ==
--- NOTE | 2022-01-14 12:08 | Diagnostic Imaging Report ---
Indication: Routine screening. Comparison is made with prior mammograms from 08/15/2018 and 07/26/2017. 2-D and 3-D bilateral screening mammography was performed with CAD. Scattered fibroglandular densities are identified bilaterally. A nodular density in the medial left breast represents a skin lesion. No spiculated mass or malignant appearing microcalcifications are seen. There are benign calcifications present. Axillae are unremarkable. IMPRESSION: BI-RADS Category 2 No mammographic features suspicious for malignancy are identified. ACR BI-RADS Category 2: Benign findings. Result letter will be mailed to the patient. Note: At least 10% of breast cancer is not imaged by mammography. Dictated by: Dictated on workstation # [id number]
== END ==
LOC: RAD 11:00
PROVIDERS: ATTEND Hospitalist
DX: Z12.31 Encounter for screening mammogram for malignant neoplasm of breast (principal)
CPT/HCPCS: 77063; 77067

== ENCOUNTER → 2022-10-19 | Outpatient (CLI) | payer BC, MEDICARE ==
[~2022-10-19] MED LIST changes: +HOLD METFORMIN - RECEIVED CONTRAST 20 ML VIAL IV SCH; +IOHEXOL 350 MG/ML 100 ML (OMNIPAQUE 350) VIAL IV ONE; +NS 100 ML (IVPB) BAG IV ONE
[2022-10-19 11:39] LABS: HEMATOCRIT 45 % (35-52); HEMOGLOBIN 14.8 g/dL (11.5-16.0); MEAN CORPUSCULAR HEMOGLOBIN 29 pg (25-34); MEAN CORPUSCULAR HGB CONC 33 g/dL (32-36); MEAN CORPUSCULAR VOLUME 87 fL (80-99); MEAN PLATELET VOLUME 10.1 fL (9.0-12.2); PLATELET COUNT 176 10^3/uL (130-400); WHITE BLOOD COUNT 6.8 10^3/uL (4.3-11.0)
[2022-10-19 12:01] LABS: ALBUMIN 4.1 GM/DL (3.2-4.5); BILIRUBIN,TOTAL 1.9 MG/DL (0.1-1.0); CREATININE SERUM 0.92 MG/DL (0.60-1.30); POTASSIUM 4.4 MMOL/L (3.6-5.0); TOTAL PROTEIN 7.2 GM/DL (6.4-8.2)
--- NOTE | 2022-10-19 12:19 | Diagnostic Imaging Report ---
CT HEAD W WO Date: 10/19/2022 12:14 PM Clinical Indication: Confusion Comparison: Brain MRI on 06/09/2021. Technique: 5 mm axial tomographic images were obtained of the head with and without contrast. These were viewed on brain and bone windows. One or more of the following dose reduction techniques were utilized: Automated exposure control (AEC), Adjustment of mA and/or kV according to patient size, Use of iterative reconstruction technique such as ASiR, CT scan done according to ALARA and image gently/image wisely Findings: Encephalomalacia within the left frontal lobe and left temporal lobe Mild generalized cerebral volume loss. Mild nonspecific periventricular hypoattenuation.. No intra- or extra-axial mass or fluid collection. No acute hemorrhage. The ventricles are normal in size, shape, and morphology. The aceves-white matter junction is normal. The subarachnoid cisterns are patent. No mass or abnormal enhancement. The visualized paranasal sinuses are normal. The visualized portions of the orbits and globes are normal. The mastoid air cells are clear. The corporate lawyer topogram shows no lytic lesion or fracture. Impression: No acute intracranial hemorrhage. No large vascular territory be-white loss. No intracranial mass, midline shift, or hydrocephalus. Encephalomalacia within the left frontal and left temporal lobe. No abnormal enhancement. Dictated by: Dictated on workstation # [id number]
== END ==
LOC: RAD 11:22
PROVIDERS: ATTEND Family Medicine
DX: G93.89 Other specified disorders of brain (principal)
CPT/HCPCS: 36415; 70470; 80053; 85027